=== PATIENT | male | born 1985 | race Caucasian/White ===

== ENCOUNTER 2016-12-06 16:44 | Inpatient (IN) | payer MEDICAID, OTHER ==
--- NOTE | 2016-12-06 17:03 | ED ---
General Adult HPI - General Source: patient, EMS, RN notes reviewed Mode of arrival: EMS Limitations: no limitations <Sam Salas - Last Filed: 12/06/16 18:06> <Nathen Lopez - Last Filed: 12/06/16 20:13> - General Chief complaint: Overdose Stated complaint: mental health Time Seen by Provider: 12/06/16 16:50 - History of Present Illness Initial comments: Patient is a pleasant 31-year-old male presenting to the emergency Department with depression and attempted overdose. Patient took 5 or 6 Xanax of unknown dose. Patient does have a history of suicide attempt in the past. Patient is depressed regarding the fact that he will be homeless and a couple of weeks. Patient has a history of heroin use however has been cleaning the last year and a half. No alcohol use. No hallucinations. No homicidal thoughts. No physical complaints. (Sam Salas) - Related Data Home Medications Medication Instructions Recorded Confirmed No Known Home Medications [No 12/06/16 12/06/16 Known Home Medications] Allergies Allergy/AdvReac Type Severity Reaction Status Date / Time No Known Allergies Allergy Verified 12/06/16 17:18 Review of Systems ROS Other: All systems not noted in ROS Statement are negative. Constitutional: Denies: fever Eyes: Denies: eye pain ENT: Denies: ear pain Respiratory: Denies: cough Cardiovascular: Denies: chest pain Endocrine: Denies: fatigue Gastrointestinal: Denies: abdominal pain Genitourinary: Denies: dysuria Musculoskeletal: Denies: back pain Skin: Denies: rash Neurological: Denies: headache Psychiatric: Reports: depression, suicidal thoughts <Sam Salas - Last Filed: 12/06/16 18:06> ROS Other: All systems not noted in ROS Statement are negative. <Nathen Lopez - Last Filed: 12/06/16 20:13> ROS Statement: Those systems with pertinent positive or pertinent negative responses have been documented in the HPI. Past Medical History Additional Past Medical History / Comment(s): recovering heroin addict History of Any Multi-Drug Resistant Organisms: None Reported Past Surgical History: Tonsillectomy Past Psychological History: Anxiety, Depression Smoking Status: Current every day smoker Past Alcohol Use History: Rare Past Drug Use History: Heroin, Marijuana <Sam Salas - Last Filed: 12/06/16 18:06> General Exam Limitations: no limitations General appearance: other (Slightly drowsy) Head exam: Present: atraumatic Eye exam: Present: normal appearance, EOMI, nystagmus ENT exam: Present: normal oropharynx Neck exam: Present: normal inspection Respiratory exam: Present: normal lung sounds bilaterally Cardiovascular Exam: Present: regular rate, normal rhythm GI/Abdominal exam: Present: soft. Absent: tenderness Extremities exam: Present: normal inspection Neurological exam: Present: alert, CN II-XII intact. Absent: motor sensory deficit Psychiatric exam: Present: flat affect Skin exam: Present: normal color <Sam Salas - Last Filed: 12/06/16 18:06> Course <Sam Salas - Last Filed: 12/06/16 18:06> <Nathen Lopez - Last Filed: 12/06/16 20:13> Vital Signs 12/06/16 12/06/16 12/06/16 16:52 16:57 19:00 Temperature 98.3 F Pulse Rate 108 H 76 Respiratory 18 18 Rate Blood Pressure 142/86 137/70 O2 Sat by Pulse 98 96 97 Oximetry 12/06/16 20:08 Temperature 98.0 F Pulse Rate 72 Respiratory 18 Rate Blood Pressure 105/60 O2 Sat by Pulse 99 Oximetry - Reevaluation(s) Reevaluation #1: 12/06/16 18:06 Patient reevaluated and improved. Patient more alert. No nystagmus. Patient is medically stable for psychiatric evaluation. (Sam Salas) Medical Decision Making - Lab Data Result diagrams: 12/06/16 17:16 12/06/16 17:16 <Sam Salas - Last Filed: 12/06/16 18:06> - Lab Data Result diagrams: 12/06/16 17:16 12/06/16 17:16 <Nathen Lopez - Last Filed: 12/06/16 20:13> - Lab Data Lab Results 12/06/16 12/06/16 Range/Units 17:16 17:16 WBC 13.8 H (3.8-10.6) k/uL RBC 5.58 (4.30-5.90) m/uL Hgb 16.8 (13.0-17.5) gm/dL Hct 46.7 (39.0-53.0) % MCV 83.7 (80.0-100.0) fL MCH 30.1 (25.0-35.0) pg MCHC 36.0 (31.0-37.0) g/dL RDW 12.7 (11.5-15.5) % Plt Count 209 (150-450) k/uL Neutrophils % 78 % Lymphocytes % 14 % Monocytes % 5 % Eosinophils % 1 % Basophils % 0 % Neutrophils # 10.8 H (1.3-7.7) k/uL Lymphocytes # 1.9 (1.0-4.8) k/uL Monocytes # 0.7 (0-1.0) k/uL Eosinophils # 0.1 (0-0.7) k/uL Basophils # 0.0 (0-0.2) k/uL Sodium 143 (137-145) mmol/L Potassium 3.8 (3.5-5.1) mmol/L Chloride 109 H (98-107) mmol/L Carbon Dioxide 22 (22-30) mmol/L Anion Gap 12 mmol/L BUN 10 (9-20) mg/dL Creatinine 0.90 (0.66-1.25) mg/dL Est GFR (MDRD) Af Amer >60 (>60 ml/min/1.73 sqM) Est GFR (MDRD) Non-Af >60 (>60 ml/min/1.73 sqM) Glucose 105 H (74-99) mg/dL Calcium 9.2 (8.4-10.2) mg/dL Total Bilirubin 1.1 (0.2-1.3) mg/dL AST 21 (17-59) U/L ALT 34 (21-72) U/L Alkaline Phosphatase 46 (38-126) U/L Total Protein 7.0 (6.3-8.2) g/dL Albumin 4.0 (3.5-5.0) g/dL Salicylates <1.0 mg/dL Acetaminophen <10.0 ug/mL Serum Alcohol <10 mg/dL Disposition <Sam Salas - Last Filed: 12/06/16 18:06> Time of Disposition: 20:13 <Nathen Lopez - Last Filed: 12/06/16 20:13> Clinical Impression: Drug overdose, Suicide attempt Disposition: ADMITTED IP TO THIS HOSP
[2016-12-06 17:30] LABS: Basophils % (A) 0 %; CH 31.1; CHCM 37.3; Eosinophils # (A) 0.1 k/uL (0-0.7); Eosinophils % (A) 1 %; HCT 46.7 % (39.0-53.0); HDW 2.78; HGB 16.8 gm/dL (13.0-17.5); Luc # (Auto) 0.28; Luc % (Auto) 2; Lymphocytes # (A) 1.9 k/uL (1.0-4.8); Lymphocytes % (A) 14 %; MCH 30.1 pg (25.0-35.0); MCV 83.7 fL (80.0-100.0); Mean Platelet Volume 7.8; Monocytes # (A) 0.7 k/uL (0-1.0); Monocytes % (A) 5 %; Neutrophils # (A) 10.8 k/uL (1.3-7.7); Neutrophils % (A) 78 %; RBC 5.58 m/uL (4.30-5.90); RDW 12.7 % (11.5-15.5); WBC 13.8 k/uL (3.8-10.6); WBC (Perox) 13.54
[2016-12-06 17:49] LABS: ALT 34 U/L (21-72); AST 21 U/L (17-59); Acetaminophen <10.0 ug/mL; Alcohol <10 mg/dL; Alkaline Phosphatase 46 U/L (38-126); Anion Gap 12 mmol/L; Blood Urea Nitrogen 10 mg/dL (9-20); Calcium 9.2 mg/dL (8.4-10.2); Carbon Dioxide 22 mmol/L (22-30); Chloride 109 mmol/L (98-107); Glucose 105 mg/dL (74-99); Non-African American GFR(MDRD) >60 (>60 ml/min/1.73 sqM); Potassium 3.8 mmol/L (3.5-5.1); Salicylate <1.0 mg/dL; Sodium 143 mmol/L (137-145); Total Bilirubin 1.1 mg/dL (0.2-1.3)
[2016-12-06] MEDS ORDERED: NICOTINE 21MG/24HR PATCH TRANSDERM STA (20:08)
[2016-12-06] MEDS ORDERED: MAG HYDROX/AL HYDROX/SIMETH 30 ML CUP PO PRN (22:03)
[2016-12-06] MEDS ORDERED: MAGNESIUM HYDROXIDE 2,400 MG/10 ML CUP PO PRN (22:03)
[2016-12-06] MEDS ORDERED: OLANZapine 10 MG TAB PO STA (22:12)
[2016-12-06 22:47] VITALS: BMI 31.1
[2016-12-07 06:39] VITALS: RESP 16
[2016-12-07] MEDS: NICOTINE 21MG/24HR PATCH TRANSDERM SCH (08:33)
--- NOTE | 2016-12-07 13:26 | P.HPMEDMHU ---
History of Present Illness H&P Date: 12/07/16 Chief Complaint: Depression. This is a 31-year-old male with no prior medical history who was brought into the emergency department at [facility] yesterday because of the depression and suicidal ideation is matter fact patient overdosed on 5-6 Xanax pills, patient stated that he had lost his job on Friday and ever since he felt suicidal and he came to the ER for evaluation and treatment he ended up getting admitted to the mental health unit, the patient was seen by hours service for medical clearance. Review of Systems Constitutional: Denies anorexia, Denies chronic headaches, Denies malaise, Denies weakness, Denies weight gain Eyes: denies blurred vision, denies bulging eye, denies decreased vision Ears, nose, mouth and throat: Denies dysphagia, Denies neck lump, Denies swelling in throat, Denies sore throat, Denies vertigo Cardiovascular: Denies chest pain, Denies dyspnea on exertion, Denies high blood pressure, Denies phlebitis Respiratory: Denies congestion, Denies cough, Denies cough with sputum, Denies home oxygen, Denies sleep apnea, Denies snoring, Denies wheezing Gastrointestinal: Denies abdominal pain, Denies bloating, Denies BRBPR, Denies change in bowel habits, Denies coffee ground emesis, Denies heartburn, Denies melena, Denies nausea, Denies vomiting Genitourinary: Denies dysuria, Denies nocturia, Denies polyuria Musculoskeletal: Denies myalgias Musculoskeletal: absent: ankle pain, ankle stiffness, ankle swelling, elbow pain , elbow stiffness, elbow swelling, foot pain, foot stiffness, foot swelling, hand pain, hand stiffness, hand swelling, hip pain, hip stiffness, hip swelling , knee pain, knee stiffness, knee swelling, shoulder pain, shoulder stiffness, shoulder swelling, wrist pain, wrist stiffness, wrist swelling Integumentary: Denies pruritus, Denies rash Neurological: Denies numbness, Denies weakness Psychiatric: Reports anxiety, Reports depression, Reports suicidal ideation Endocrine: Denies fatigue, Denies weight change Past Medical History Past Medical History: No Reported History Additional Past Medical History / Comment(s): recovering heroin addict History of Any Multi-Drug Resistant Organisms: None Reported Past Surgical History: Tonsillectomy Past Anesthesia/Blood Transfusion Reactions: No Reported Reaction Past Psychological History: Anxiety, Depression Smoking Status: Current every day smoker (Patient smokes about a pack every day since the age of 18) Past Alcohol Use History: Rare Past Drug Use History: Heroin (Patient was clean for about a month and he relapsed again about 2 days ago when he snorted heroine), Marijuana - Past Family History Mother Family Medical History: Diabetes Mellitus (Mother is 54-year-old has history of diabetes.) Father Family Medical History: Coronary Artery Disease (CAD) (Father 6-year-old has history of CAD, alcoholic cirrhosis) Medications and Allergies Home Medications Medication Instructions Recorded Confirmed Type No Known Home Medications [No 12/06/16 12/06/16 History Known Home Medications] Allergies Allergy/AdvReac Type Severity Reaction Status Date / Time No Known Allergies Allergy Verified 12/06/16 22:25 Physical Exam Vitals: Vital Signs Temp Pulse Resp BP 12/07/16 06:38 98.1 F 64 16 105/58 12/06/16 22:31 98.3 F 77 20 118/73 Intake and Output 12/06/16 12/07/16 12/07/16 22:59 06:59 14:59 Other: Weight 98.3 kg - Constitutional General appearance: average body habitus, no acute distress - EENT Eyes: EOMI, PERRLA, no ptosis, no scleral icterus, normal appearance ENT: hearing grossly normal, normal oropharynx, no thrush Ears: bilateral: normal - Neck Neck: no lymphadenopathy, normal ROM, no rigidity, no stridor, no thyromegaly Carotids: bilateral: upstroke normal Thyroid: bilateral: normal size - Respiratory Respiratory: bilateral: diminished, negative: dullness, rales, rhonchi, wheezing , prolonged expiration, prolonged inspiration - Cardiovascular Rhythm: regular Heart sounds: normal: S1, S2 Abnormal Heart Sounds: no systolic murmur, no S3 Gallop, no S4 Gallop, no click - Gastrointestinal General gastrointestinal: normal bowel sounds, soft, no splenomegaly, no tenderness, no umbilical hernia - Integumentary Integumentary: normal, normal turgor - Neurologic Neurologic: CNII-XII intact - Musculoskeletal Musculoskeletal: strength equal bilaterally - Psychiatric Psychiatric: A&O x's 3, no appropriate affect, intact judgment & insight Cranial Nerve Examination - Cranial Nerves Cranial Nerve I- Olfactory: Intact Cranial Nerve II- Optic: Intact Cranial Nerve III- Oculomotor: Intact Cranial Nerve IV- Trochlear: Intact Cranial Nerve V- Trigeminal: Intact Cranial Nerve - Abducens: Intact Cranial Nerve VII- Facial: Intact Cranial Nerve VIII- Auditory: Intact Cranial Nerve IX- Glossopharyngeal: Intact Cranial Nerve X- Vagus: Intact Cranial Nerve XI- Accessory: Intact Cranial Nerve XII- Hypoglossal: Intact Results CBC & Chem 7: 12/06/16 17:16 12/06/16 17:16 Assessment and Plan Plan: Assessment and plan: 1. Depression. Admit the patient to the mental health unit, group therapy, suicidal precaution, patient will be seen by the mental health unit team. 2. Chronic tobacco use and dependence. The patient was placed on nicotine patch, smoking cessation and counseling an increased risk of CAD, CVA, and malignancy. 3. Marijuana as well as heroine abuse. Patient was counseled about abstinence 4. Thank you for the consult. We will follow with you.
[2016-12-07] MEDS: FLUoxetine HCL 20 MG CAP PO SCH (15:09)
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
[2016-12-07] MEDS: ACETAMINOPHEN TAB 325 MG TAB PO PRN (21:29)
[2016-12-07] MEDS: traZODone HCL 100 MG TAB PO PRN (21:29)
[2016-12-08 06:22] VITALS: TEMP 98.5
[2016-12-08] MEDS: FLUoxetine HCL 20 MG CAP PO SCH (08:09)
[2016-12-08] MEDS: NICOTINE 21MG/24HR PATCH TRANSDERM SCH (08:09)
[2016-12-08] MEDS ORDERED: OLANZapine 5 MG TAB PO ONE (09:06)
[2016-12-08] MEDS: ACETAMINOPHEN TAB 325 MG TAB PO PRN ×2 (11:00→20:41)
[2016-12-08] MEDS: OLANZapine 5 MG TAB PO SCH ×3 (14:55→20:39)
[2016-12-08 17:33] LABS: Appearance,Urine Clear (Clear); Bilirubin,Urine Negative (Negative); Glucose,Urine (UA) Negative (Negative); Ketones,Urine Negative (Negative); Leukocyte Esterase,Urine Negative (Negative); Nitrite,Urine Negative (Negative); PH, Urine 6.5 (5.0-8.0); Protein,Urine Negative (Negative); Specific Gravity,Urine 1.011 (1.001-1.035); UA Billing (MACRO vs. MICRO) CHEM; Urobilinogen,Urine <2.0 mg/dL (<2.0)
--- NOTE | 2016-12-08 17:42 | PN ---
DATE OF SERVICE: 12/08/2016 CHIEF COMPLAINT: The patient reported that he has had long-term problems with depression. He presented the story to the emergency room that he had overdosed on 5 to 6 tablets of Xanax. He had significant stress issues with having relapsed to heroin use after 1-1/2 years of abstinence. He had additional stress of losing a job which is his only means of income. INTERVAL HISTORY: Patient has been doing fair. He had a quiet evening last night. He attended group last evening and again today. He does not actively participate and seems a little withdrawn in groups. He received Desyrel last evening and slept fair last night. He does report some irritability and GI complaints relating to heroin withdrawal. He says he doubts that he will have significant problems with that, as he only used for about 1 week, though he is noting some issues. He talked to his mother and was able to set up a plan to be able to live with her. He recognizes that there is stress in that situation, given that she continues to drink. He was worried about his car, though that has been taking care of. He does have to deal with Medicaid issues. He has a fair outlook in regards to addressing some of his immediate issues to get his life back on track. He has not had change in his general health. He tolerates his psychotropic medications. MENTAL STATUS: Patient gave good eye contact. Psychomotor activity was a little restless. Speech was clear. He answered questions with direct responses. He has calm manner. His affect was a little constricted, his mood quiet. He did not appear to be distressed. ASSESSMENT: I will continue the current diagnosis and treatment plan. I will continue psychotropic medications the same. He is tolerating the start up of Prozac. I will add Zyprexa 5 mg 3 times a day for management of early withdrawal issues relating to heroin use. I would look to keep that limited and potentially wean him away from that over the next few weeks, presumably once he is discharged. We will continue to focus on stabilization and discharge planning. We will provide support in helping him address Medicaid issues as well as outpatient referral.
[2016-12-08] MEDS: traZODone HCL 100 MG TAB PO PRN (20:42)
[2016-12-09 06:07] VITALS: BP 141/86; PULSE 112
[2016-12-09] MEDS: OLANZapine 5 MG TAB PO SCH (08:39)
[2016-12-09] MEDS: FLUoxetine HCL 20 MG CAP PO SCH (08:39)
[2016-12-09] MEDS: NICOTINE 21MG/24HR PATCH TRANSDERM SCH (08:39)
--- NOTE | 2016-12-09 09:11 | P.PN ---
Progress Note - Text SUBJECTIVE: I reviewed the medical record, interviewed Ty and discussed his treatment and treatment plan during team meeting. He is a 31-year-old male who has history of an opiate use disorder. He presented to unit with complaints of suicidal ideation, increasing depression and relapse to heroin. He denied feeling depressed or having thoughts of or suicide. He talked about the recent relapse to heroin and assured me that he will be able to control his heroin use without involvement in a recovery program. He attributed his heroin use to a job loss, financial problems and loss of housing. He plans to return to his mother's house after discharge and once he finds another job to move to his home apartment. He denied opiate withdrawal symptoms. OBJECTIVE: He presented as a casually groomed 31-year-old male who is moderately obese. He made eye contact and attended the interview. He had no distinguishing features or prominent physical abnormalities. He had occasional sniffling. He had a bright facial expression. He was alert and oriented to person, place and time. He showed no abnormality of psychomotor activity. He had a normal gait. His speech was spontaneous with normal rate, rhythm and volume. His affect was blunted but stable and appropriate. He denied suicidal ideation or wishes. He denied homicidal ideation. He denied feelings of hopelessness, helplessness or worthlessness. He did not express obsessions, phobias, ideas reference or paranoid ideation. His thinking was abstract and associations were coherent and logical. He denied hallucinations and did not appear to be responding to internal stimuli. ASSESSMENT: He is not depressed and denies suicidal thoughts, ideation or intent. He has minimal symptoms of opiate withdrawal. His presentation is related to relapse to heroin his contacts of several social issues including job loss and financial problems. PLAN: Discharged home with follow-up through [facility]. Continue Prozac 20 mg per day and trazodone 100 mg at bedtime for sleep.
--- NOTE | 2016-12-09 09:33 | P.DS ---
Providers Date of admission: 12/06/16 20:41 Attending physician: Toy Alberto MD Consults: 12/06/16 22:06 Consult Physician Routine Consulting Provider: Tutu Oliva Consult Reason/Comments: H & P and medical follow up Do you want consulting provider notified?: Yes, Notify in am Primary care physician: Stated None - Discharge Diagnosis(es) (1) Opioid use disorder, severe, dependence Current Visit: Yes Status: Chronic Priority: Medium (2) Depressive disorder Current Visit: Yes Status: Acute Priority: Low (3) Drug overdose Current Visit: Yes Status: Acute Priority: Medium Hospital Course: He is a 31-year-old male with history help use disorder. He presented to emergency room with complaints of depression and alleged overdose with "5 or 6 tablets of Xanax". He relapsed to heroin after he reported 8 months abstinence as a result of several stressors including loss of job, unemployment and loss of housing. Please see history and physical dated 2016. We admitted him to the psychiatric unit under the care of this inspector automatic typewriter. We provided a biopsychosocial assessment. The business system consultant intensive care anaesthetist completed the initial physical exam and medical history and diagnosed depression, tobacco use disorder, marijuana and heroin use disorder. The admitting psychiatrist prescribed Prozac 20 mg daily for treatment of depression and trazodone 100 mg at bedtime for insomnia. Mr. Henderson complained of mild to moderate opiate withdrawal symptoms for which the covering psychiatrist prescribed Zyprexa 5 mg 3 times a day. On the day of discharge she denied opiate withdrawal symptoms. He denied feeling depressed or having thoughts of or suicide. He plans to live with his mother until he is able to find employment and obtain his own apartment. He is not interested in residential rehabilitation but agreed to a referral to [facility] for aftercare services. Patient Condition at Discharge: Stable Plan - Discharge Summary New Discharge Prescriptions: FLUoxetine HCL [PROzac] 20 mg PO DAILY 30 Days Nicotine 21Mg/24Hr Patch [Habitrol] 1 patch TRANSDERM DAILY 14 Days traZODone HCL [Desyrel] 100 mg PO HS PRN 30 Days PRN Reason: Insomnia Discharge Medication List FLUoxetine HCL [PROzac] 20 mg PO DAILY 30 Days 12/09/16 [Rx] Nicotine 21Mg/24Hr Patch [Habitrol] 1 patch TRANSDERM DAILY 14 Days 12/09/16 [Rx ] traZODone HCL [Desyrel] 100 mg PO HS PRN 30 Days 12/09/16 [Rx] Follow up Appointment(s)/Referral(s): None,Stated [Primary Care Provider] - 1-2 days Patient Instructions/Handouts: How to Stop Smoking (DC), Depression (DC), Suicide Prevention for Adults (DC) Activity/Diet/Wound Care/Special Instructions: Activity and diet as tolerated. Avoid the use of street drugs and alcohol. Take medications as prescribed. When you are in need of refills on your medication please contact your medical provider and/or outpatient psychiatrist to have this done. Please go to scheduled outpatient appointment for aftercare. If symptoms return or become worse call the crisis line at and/or go to the nearest emergency room for an evaluation. Discharge Disposition: HOME SELF-CARE
== END 2016-12-09 15:13 | disposition home or self-care (01) | DRG 885 ==
LOC: EC 16:44 → 3MHU 20:41
PROVIDERS: ADMIT Psychiatry & Neurology Psychiatry; ATTEND Psychiatry & Neurology Psychiatry
DX: F32.4 Major depressive disorder, single episode, in partial remission (principal); R45.851 Suicidal ideations; F11.23 Opioid dependence with withdrawal; F12.90 Cannabis use, unspecified, uncomplicated; G47.00 Insomnia, unspecified; F43.10 Post-traumatic stress disorder, unspecified; F41.0 Panic disorder [episodic paroxysmal anxiety]; F17.200 Nicotine dependence, unspecified, uncomplicated; T42.4X2A Poisoning by benzodiazepines, intentional self-harm, initial encounter; Z59.9 Problem related to housing and economic circumstances, unspecified; Z62.810 Personal history of physical and sexual abuse in childhood; Z91.5 Personal history of self-harm
CPT/HCPCS: 36415; 80053; 80306; 80320; 81003; 82075; 83520; 84443; 85025

== ENCOUNTER 2019-02-28 14:44 | Inpatient (IN) | payer MEDICAID, OTHER ==
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
[2019-02-28 15:47] LABS: Amphetamine Screen,Urine Not Detected (NotDetected); Barbiturate Screen,Urine Not Detected (NotDetected); Benzodiazepines Screen,Urine Not Detected (NotDetected); Cocaine Screen,Urine Not Detected (NotDetected); Methadone Screen, Urine Not Detected (NotDetected); Opiate Screen,Urine Not Detected (NotDetected); Oxycodone Screen, Urine Not Detected (NotDetected); Phencyclidine Screen,Urine Not Detected (NotDetected); Tricyclic Antidepressant,Urine Not Detected (NotDetected); Urn Cannabinoid Scrn Not Detected (NotDetected)
[2019-02-28] MEDS ORDERED: NICOTINE 21MG/24HR PATCH TRANSDERM STA (17:45)
[2019-02-28] MEDS ORDERED: THIAMINE 100 MG/ML 2 ML VIAL IM STA (20:20)
[2019-02-28] MEDS ORDERED: LORazepam 2 MG/ML INJ IV PRN ×3 (20:20)
[2019-02-28] MEDS ORDERED: HYDROcodone/APAP 5-325MG 1 EACH TAB PO STA (20:23)
[2019-02-28] MEDS: THIAMINE 100 MG TAB PO SCH ×2 (20:23→20:24)
[2019-02-28 21:30] LABS: Basophils # (A) 0.1 k/uL (0-0.2); Basophils % (A) 1 %; Eosinophils # (A) 0.2 k/uL (0-0.7); Eosinophils % (A) 2 %; HCT 49.3 % (39.0-53.0); HGB 16.7 gm/dL (13.0-17.5); Lymphocytes # (A) 2.4 k/uL (1.0-4.8); Lymphocytes % (A) 22 %; MCH 31.1 pg (25.0-35.0); MCHC 33.8 g/dL (31.0-37.0); Mean Platelet Volume 7.6; Monocytes # (A) 0.5 k/uL (0-1.0); Monocytes % (A) 4 %; Neutrophils # (A) 7.6 k/uL (1.3-7.7); Neutrophils % (A) 69 %; Platelet Count 239 k/uL (150-450); RBC 5.36 m/uL (4.30-5.90); RDW 14.6 % (11.5-15.5); WBC 10.9 k/uL (3.8-10.6)
[2019-02-28 21:35] LABS: Appearance,Urine Clear (Clear); Bilirubin,Urine Negative (Negative); Blood,Urine Negative (Negative); Color,Urine Light Yellow; Glucose,Urine (UA) Negative (Negative); Ketones,Urine Negative (Negative); Leukocyte Esterase,Urine Negative (Negative); Nitrite,Urine Negative (Negative); Protein,Urine Trace (Negative); Specific Gravity,Urine 1.009 (1.001-1.035); Urobilinogen,Urine <2.0 mg/dL (<2.0)
[2019-02-28 21:47] LABS: ALT 46 U/L (21-72); AST 47 U/L (17-59); African American GFR (CKD) >90 (>60 ml/min/1.73 sqM); Albumin 4.6 g/dL (3.5-5.0); Alkaline Phosphatase 70 U/L (38-126); Anion Gap 13 mmol/L; Blood Urea Nitrogen 9 mg/dL (9-20); Calcium 9.5 mg/dL (8.4-10.2); Carbon Dioxide 23 mmol/L (22-30); Chloride 104 mmol/L (98-107); Glucose 114 mg/dL (74-99); Magnesium 1.7 mg/dL (1.6-2.3); Potassium 4.1 mmol/L (3.5-5.1); Sodium 140 mmol/L (137-145); Total Bilirubin 0.5 mg/dL (0.2-1.3); Total Protein 7.5 g/dL (6.3-8.2)
[2019-03-01] MEDS ORDERED: ACETAMINOPHEN TAB 325 MG TAB PO STA ×2 (02:03→13:39)
[2019-03-01] MEDS ORDERED: NICOTINE 21MG/24HR PATCH TRANSDERM STA (08:26)
[2019-03-01] MEDS ORDERED: MAG HYDROX/AL HYDROX/SIMETH 30 ML CUP PO PRN (14:32)
[2019-03-01] MEDS ORDERED: ZIPRASIDONE 20 MG VIAL IM PRN (14:32)
[2019-03-01] MEDS ORDERED: LORazepam 2 MG/ML INJ IM PRN (14:35)
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
[2019-03-01] MEDS: FOLIC ACID 1 MG TAB PO SCH (21:16)
[2019-03-01] MEDS: LORazepam 1 MG TAB PO PRN (21:16)
[2019-03-01] MEDS: MELATONIN 5 MG TABLET PO PRN (21:17)
[2019-03-01] MEDS ORDERED: NICOTINE POLACRILEX 2 MG GUM BUCCAL STA (21:38)
[2019-03-02] MEDS: NICOTINE 21MG/24HR PATCH TRANSDERM SCH (08:21)
[2019-03-02] MEDS: ACETAMINOPHEN TAB 325 MG TAB PO PRN ×2 (08:22→21:45)
[2019-03-02] MEDS: LORazepam 1 MG TAB PO PRN ×3 (08:22→21:44)
[2019-03-02] MEDS: MULTIVITAMINS, THERA 1 EACH TAB PO SCH (08:22)
[2019-03-02] MEDS: FOLIC ACID 1 MG TAB PO SCH (08:22)
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
[2019-03-02] MEDS: VORTIOXETINE HYDROBROMIDE 10 MG TABLET PO SCH (11:54)
[2019-03-02] MEDS: MELATONIN 5 MG TABLET PO PRN (21:44)
[2019-03-03] MEDS: MULTIVITAMINS, THERA 1 EACH TAB PO SCH (08:05)
[2019-03-03] MEDS: FOLIC ACID 1 MG TAB PO SCH (08:05)
[2019-03-03] MEDS: VORTIOXETINE HYDROBROMIDE 10 MG TABLET PO SCH (08:05)
[2019-03-03] MEDS: NICOTINE 21MG/24HR PATCH TRANSDERM SCH (08:05)
[2019-03-03] MEDS: LORazepam 1 MG TAB PO PRN ×3 (08:07→22:17)
[2019-03-03] MEDS: ACETAMINOPHEN TAB 325 MG TAB PO PRN ×3 (08:07→21:02)
--- NOTE | 2019-03-03 11:38 | P.PN ---
Progress Note - Text Interval history: The patient is found in the hallway he follows me to an interview room. He reports his mood is about the same he feels depressed. He feels safe here in the hospital. He has decided that he will attend inpatient chemical dependency treatment. He is encouraged to call today and he is agreeable. We reviewed his psychotropic medication. He indicates that he is having trouble sleeping although staff report he slept 7 hours. He states he is having increased anxiety when he attempts to go to sleep. We discussed di eddy the melatonin in trying Vistaril. Mental status exam: The patient is an overweight male appearing his stated age. He is dressed in his own clothing he has a disheveled appearance. Hygiene is adequate. Speech is fluent spontaneous nonpressured. He does appear distractible at times. He endorses a depressed mood with anxiety. He continues to have some hopelessness thinking. In terms of suicidal thoughts he feels safe in the hospital. He reports no homicidal ideation intent or plan. He is reporting no auditory or visual hallucinations or any specific delusions. There is no observed evidence of psychosis. He does not appear hypomanic or manic currently. He is oriented to person place and date. He demonstrates no verbal or physical aggressiveness he demonstrates no involuntary repetitive movements. Insight and judgment limited at this time. Plan: Continued symptoms of depression. We will continue his current medications. We will add Vistaril 25 mg at bedtime. He is instructed to call the access number today to begin arranging inpatient chemical dependency treatment. Vital signs reviewed they are within normal limits. We discussed that we would be tapering off of the Ativan during the hospitalization. He is encouraged to continue participating in the milieu. We will continue monitoring him for safety.
[2019-03-03] MEDS: hydrOXYzine PAMOATE 25 MG CAP PO SCH (22:14)
[2019-03-04] MEDS: VORTIOXETINE HYDROBROMIDE 10 MG TABLET PO SCH (08:31)
[2019-03-04] MEDS: MULTIVITAMINS, THERA 1 EACH TAB PO SCH (08:31)
[2019-03-04] MEDS: NICOTINE 21MG/24HR PATCH TRANSDERM SCH (08:31)
[2019-03-04] MEDS: FOLIC ACID 1 MG TAB PO SCH (08:31)
[2019-03-04] MEDS: LORazepam 1 MG TAB PO PRN ×2 (08:33→19:15)
--- NOTE | 2019-03-04 10:08 | P.PN ---
Progress Note - Text Progress Note Date: 03/04/19 Interval History: Patient is a 34-year-old male who was seen today in coverage for Dr. Peoples. Patient reports that he did contact the body worker for substance abuse rehab program. Patient states that he slept on and off last night and is eating fairly well. He reports continuing to feel depressed, tired and was crying this morning about the fact that his family hasn't contacted him and he still pretty hopeless. Patient states that he's continuing to have suicidal thoughts but has no plan or intent to act while on the inpatient unit. Patient states that he was attending groups yesterday but this morning is feeling tired and so was in his room when he was approached for the interview. Mental Status:Appearance/Attitude: Patient is neatly dressed, makes intermittent eye contact and is cooperative Behavior: Patient does not exhibit any psychomotor agitation, some evidence of some psychomotor slowing. Speech/Language: Patient responds to questions with some elaboration, speaks in a soft voice normal rhythm and is coherent Thought Process: Patient is goal-directed and needs encouragement to elaborate on his responses no evidence of flight of ideas or loose associations Thought Content: Patient states that he is not hearing voices or seeing things, no paranoid or delusional ideation is elicited. Patient reports continuing to feel hopeless because he is had no contact with his family, he states he's feeling tired and was crying this morning. Patient states that he slept on and off last night and continues to feel depressed. He reports he is eating well. Suicidal/Homicidal Ideation: Patient reports continued suicidal thoughts with no plan or intent to act and no current homicidal ideation Sensorium/Cognition: Patient is alert and oriented to person, place and time and his recent and remote memory are grossly intact Mood/Affect: Patient's mood remains depressed and his affect is blunted Insight/Judgment: Patient's insight and judgment are fair Assessment: Patient states that he contacted the intake for rehab, states that he is continuing to feel depressed, hopeless and continues to have suicidal thoughts with no plan or intent to act. Patient reports no side effects from gaining trintellix and states that he is eating well and slept on and off last night. He reports feeling tired and tearful this morning and states he has no contact with his family which he states are all substance users. Plan: Patient will continue on his current medications, patient continues to require hospitalization to further stabilize his mood. Patient has contacted intake for substance use rehab.
[2019-03-04] MEDS: ACETAMINOPHEN TAB 325 MG TAB PO PRN (14:48)
[2019-03-04] MEDS ORDERED: WATER FOR INJECTION, STERILE 10 ML IV ONE (19:02)
[2019-03-04] MEDS: hydrOXYzine PAMOATE 25 MG CAP PO SCH (21:49)
[2019-03-05] MEDS: VORTIOXETINE HYDROBROMIDE 10 MG TABLET PO SCH (08:27)
[2019-03-05] MEDS: MULTIVITAMINS, THERA 1 EACH TAB PO SCH (08:27)
[2019-03-05] MEDS: FOLIC ACID 1 MG TAB PO SCH (08:27)
[2019-03-05] MEDS: LORazepam 1 MG TAB PO PRN ×3 (08:27→22:08)
[2019-03-05] MEDS: NICOTINE 21MG/24HR PATCH TRANSDERM SCH (08:27)
--- NOTE | 2019-03-05 10:16 | P.PN ---
Progress Note - Text Interval history: The patient is found the front clerk he follows me to an interview room. He states he continues to struggle with symptoms of depression. He reports that suicidal thoughts continue to occupy his mind. He states he tries to be more optimistic but thoughts of past traumas will recur. He states he continues to be tearful on a regular basis. He has very limited support. He continues to vacillate between going to [facility] and returning to the group home if he is eligible. He states that if he goes to [facility] this will delay him getting a job. We reviewed his psychotropic medications. He had no questions or concerns regarding those. Mental status exam: The patient is an overweight male appearing his stated age. Eye contact is appropriate speech is fluent and spontaneous slow at times. He reports sad mood with hopelessness thoughts he demonstrates a congruent affect. He reports continued suicidal ideation frequently. He reports no homicidal ideation intent or plan. He reports no auditory or visual hallucinations or any specific delusions. He demonstrates no tangential thinking loose associations or flight of ideas. He demonstrates no verbal or physical aggressiveness. Insight and judgment limited. He remains oriented to person place and date. Plan: Continued symptoms of depression, continue medication as written. He is encouraged to fully participate in the milieu. We will monitor him for safety. Vital signs reviewed. He is encouraged to consider inpatient chemical dependency treatment. He requires continued psychiatric hospitalization due to acute safety risk.
[2019-03-05] MEDS: hydrOXYzine PAMOATE 25 MG CAP PO SCH (21:09)
[2019-03-05] MEDS: ACETAMINOPHEN TAB 325 MG TAB PO PRN (22:08)
[2019-03-06] MEDS: VORTIOXETINE HYDROBROMIDE 10 MG TABLET PO SCH (07:57)
[2019-03-06] MEDS: FOLIC ACID 1 MG TAB PO SCH (07:57)
[2019-03-06] MEDS: NICOTINE 21MG/24HR PATCH TRANSDERM SCH (07:57)
[2019-03-06] MEDS: MULTIVITAMINS, THERA 1 EACH TAB PO SCH (07:57)
[2019-03-06] MEDS: LORazepam 1 MG TAB PO PRN ×3 (07:58→22:58)
--- NOTE | 2019-03-06 15:47 | P.PN ---
Progress Note - Text Progress Note Date: 03/06/19 Interval history: Patient is seen in cross coverage today. He reports he has had some feelings of his mood is feeling better but continues to be struggling with depression and also thoughts of suicide. He does talk about his plans to go to [place] after a treatment here. His drug of choice has been heroin but he was also using alcohol. He does describe a lot of negative thinking and has been doing a lot of introspection with negative thinking. Regarding medication side effects he has noticed with self stimulation some sexual side effects with the trintellix which is tolerable. Mental status exam: He is alert and cooperative with the interview. Speech is fluent, not rapid or pressured. His thought processes are organized. His mood is depressed. He admits to some ongoing thoughts of suicide but reports that he feels safe here on the unit. He has not verbalize any thoughts of harm to others. No evidence of psychosis or agitation. He also describes significant anxiety. Plan: Patient will be maintained on current psychotropic medication regimen. We'll continue to monitor for any medication side effects and monitor his ongoing response to treatment. continue to monitor regarding suicidal ideations. We'll continue to cover this patient through the weekend
[2019-03-06] MEDS: hydrOXYzine PAMOATE 25 MG CAP PO SCH (20:21)
[2019-03-06] MEDS: ACETAMINOPHEN TAB 325 MG TAB PO PRN (22:59)
[2019-03-07] MEDS: NICOTINE 21MG/24HR PATCH TRANSDERM SCH (09:15)
[2019-03-07] MEDS: VORTIOXETINE HYDROBROMIDE 10 MG TABLET PO SCH (09:15)
[2019-03-07] MEDS: MULTIVITAMINS, THERA 1 EACH TAB PO SCH (09:15)
[2019-03-07] MEDS: FOLIC ACID 1 MG TAB PO SCH (09:16)
[2019-03-07] MEDS: LORazepam 1 MG TAB PO PRN ×2 (09:17→17:20)
[2019-03-07 12:21] VITALS: BMI 41.9
--- NOTE | 2019-03-07 13:13 | P.PN ---
Progress Note - Text Progress Note Date: 03/07/19 Interval history: Patient seen in cross [facility] in today. He describes that he has been dealing with ongoing thoughts of harm to self. He does feel safe here on the unit. He states that his mood could be better. He does still plan on going to rehab after being discharged from the unit. He describes some ongoing anxiety. he makes reference to feeling as though he would need to act out in order to get medication but does not verbalize any plans to act out. He does state he's been taking some of the Ativan when necessary. He does describe lack of support system today. He discussed plans for looking at going to a three- quarter house upon discharge from rehab and we also discussed NA/AA. He also discussed issues of looking for a job. Mental status exam: He is alert and cooperative with the interview. His speech is fluent, not rapid or pressured. Thought processes are organized. His mood is depressed. He admits to some ongoing thoughts of harm to self but reports that he feels safer on the unit. He has not verbalize thoughts of harm to others. No evidence of psychosis or agitation. Plan: We'll maintain current psychotropic medication regimen. Continue to monitor regarding thoughts of suicide. Continue to monitor his ongoing response to treatment.
[2019-03-07] MEDS: ACETAMINOPHEN TAB 325 MG TAB PO PRN (18:28)
[2019-03-07] MEDS: hydrOXYzine PAMOATE 25 MG CAP PO SCH (21:03)
[2019-03-07] MEDS ORDERED: MELATONIN 1 MG TAB PO STA (21:53)
[2019-03-08] MEDS: NICOTINE 21MG/24HR PATCH TRANSDERM SCH (08:32)
[2019-03-08] MEDS: VORTIOXETINE HYDROBROMIDE 10 MG TABLET PO SCH (08:32)
[2019-03-08] MEDS: MULTIVITAMINS, THERA 1 EACH TAB PO SCH (08:32)
[2019-03-08] MEDS: FOLIC ACID 1 MG TAB PO SCH (08:32)
[2019-03-08] MEDS: LORazepam 1 MG TAB PO PRN ×2 (08:34→19:35)
--- NOTE | 2019-03-08 09:20 | P.PN ---
Progress Note - Text Interval history: The patient is found in the assistant front office manager he follows me to an interview room. He indicates his mood is still down. He states that he doesn't have much hope. He has decided to go to inpatient chemical dependency treatment as he needs three-quarter placement afterwards. We discussed what his plans will be after he gets out of rehab. We tried to review various job opportunities or activities that he might engage in that would be healthier. He had questions regarding his medication those were addressed. He has found the Vistaril ineffective so far although he has been sleeping throughout the night. We discussed titrating the Vistaril and making it more accessible. He describes waking up feeling bad because of depression and anxiety each morning and reexperiencing that same phenomenon around 4 PM. Mental status exam: The patient is an overweight male appearing his stated age. He presents with adequate hygiene and fair grooming. Eye contact is appropriate speech is fluent spontaneous nonpressured. He reports a depressed and anxious mood affect is constricted. Initially states that he stil l has some hopelessness thinking. He states he doesn't want to but doesn't want to feel like this anymore. No homicidal ideation intent or plan. He is reporting no auditory or visual hallucinations or any specific delusions. There is no observed evidence of psychosis. He does not appear hypomanic or manic. Insight and judgment limited. He remains oriented to person place and date. Plan: The patient will continue on the Trintellix. Vistaril be increased to 50 mg up to twice a day. He is encouraged to fully participate in the milieu. We will monitor him for safety. We will await his [facility] placement date. Vital signs reviewed.
[2019-03-08] MEDS: hydrOXYzine PAMOATE 25 MG CAP PO PRN ×2 (12:04→20:09)
[2019-03-08] MEDS: ACETAMINOPHEN TAB 325 MG TAB PO PRN (19:34)
[2019-03-09] MEDS: LORazepam 1 MG TAB PO PRN (02:45)
[2019-03-09 06:42] VITALS: BP 117/73; PULSE 79; RESP 18; TEMP 97.9
[2019-03-09] MEDS: NICOTINE 21MG/24HR PATCH TRANSDERM SCH (08:36)
[2019-03-09] MEDS: FOLIC ACID 1 MG TAB PO SCH (08:36)
[2019-03-09] MEDS: VORTIOXETINE HYDROBROMIDE 10 MG TABLET PO SCH (08:37)
[2019-03-09] MEDS: MULTIVITAMINS, THERA 1 EACH TAB PO SCH (08:37)
--- NOTE | 2019-03-09 08:57 | P.DS ---
Providers Date of admission: 03/01/19 14:13 Expected date of discharge: 03/09/19 Attending physician: Jimenez Peoples Consults: 03/01/19 14:32 Consult Physician Routine Consulting Provider: Quique Velasco Consult Reason/Comments: H&P and medical Do you want consulting provider notified?: Yes Primary care physician: Stated None - Discharge Diagnosis(es) (1) Major depressive disorder, recurrent severe without psychotic features Current Visit: Yes Status: Acute Priority: High (2) Alcohol use disorder Current Visit: Yes Status: Acute Priority: High (3) Opioid use disorder Current Visit: Yes Status: Acute Priority: High Hospital Course: Brief summary of admission note: This patient is a 34-year-old single male who was admitted to the mental health unit for suicidal ideation. The patient was considering suicide by drowning as he was seated by the [facility]. He reported having increasing symptoms of depression over the past several months. He reported feeling hopeless sleep and been impaired energy was low. He reported feelings of anhedonia. For full details please refer to my psychiatric evaluation dated 03/02/2019. Summary of hospital course: The patient was admitted to the mental health unit voluntarily. We reviewed his presenting symptoms and treatment options. We decided to initiate Trintellix is an antidepressant. We used Vistaril as needed for anxiety. He was seen by internal medicine for routine history and physical exam. Social work met with the patient to complete a psychosocial assessment and for discharge planning purposes. Initially he was uncertain but during the hospitalization he committed to attending inpatient chemical dependency treatment. Arrangements were made for him to start [facility] today. The patient has reported improvement of symptoms while here. He states that his suicidal ideation has resolved. He states he now feels some hope as he knows he can transition to a three-quarter house after he gets out of residential chemical dependency treatment. He indicated known was available for a support meeting. Mental status exam: The patient is an overweight male appearing his stated age. Hygiene is adequate grooming spare. He reports his mood is improved. Affect is constricted. He reports no longer feeling hopeless. He denies having any acute suicidal ideation intent or plan. He reports no homicidal ideation intent or plan. He denies having any auditory or visual hallucinations or any specific delusions. There is no observed evidence of psychosis. He demonstrates a linear thought process he demonstrates no tangential thoughts loose associations or flight of ideas. He does not appear hypomanic or manic. Insight and judgment improved. He remains oriented to person place and date. He demonstrates no verbal or physical aggressiveness. He demonstrates no involuntary repetitively movements. He describes future oriented thinking spontaneously. Impressions 1. Major depressive disorder recurrent severe without psychosis, alcohol use disorder, opioid use disorder, rule out PTSD Plan: The patient will be discharged mental health unit today. He will be transported to [facility] to begin inpatient chemical dependency treatment. He will continue on Trintellix 10 mg daily Vistaril 50 mg up to twice daily as needed for anxiety. We discussed the importance of him abstaining from any use of alcohol or marijuana or illicit drugs as these substances can provoke mood symptoms and elevate his safety risk. At this time there is no imminent safety risk he is appropriate for transition inpatient chemical dependency treatment. He is instructed to return to the hospital with any acute safety concerns. Patient Condition at Discharge: Stable Plan - Discharge Summary Discharge Rx Participant: No New Discharge Prescriptions: New Nicotine 21Mg/24Hr Patch [Habitrol] 1 patch TRANSDERM DAILY #14 patch Vortioxetine Hydrobromide [Trintellix] 10 mg PO DAILY #30 tablet hydrOXYzine PAMOATE [Vistaril] 50 mg PO BID #40 capsule Discharge Medication List Nicotine 21Mg/24Hr Patch [Habitrol] 1 patch TRANSDERM DAILY #14 patch 03/09/19 [Rx] Vortioxetine Hydrobromide [Trintellix] 10 mg PO DAILY #30 tablet 03/09/19 [Rx] hydrOXYzine PAMOATE [Vistaril] 50 mg PO BID #40 capsule 03/09/19 [Rx] Follow up Appointment(s)/Referral(s): [facility] [Outside] - 03/09/19 12:00 pm [facility] - [facility] Week Patient Instructions/Handouts: How to Stop Smoking (ED) Activity/Diet/Wound Care/Special Instructions: Keep your follow up appointments as scheduled. Continue medications as prescribed. Call your psychiatrist or primary care doctor when you need refills of your medications. Do not use alcohol or street drugs. No access to guns or weapons. Crisis line if needed .
== END 2019-03-09 10:47 | disposition home or self-care (01) | DRG 885 ==
LOC: EC 14:44 → 3MHU 03-01 14:13
PROVIDERS: ADMIT Psychiatry & Neurology Psychiatry; ATTEND Psychiatry & Neurology Psychiatry
DX: F33.2 Major depressive disorder, recurrent severe without psychotic features (principal); R45.851 Suicidal ideations; E66.3 Overweight; F10.129 Alcohol abuse with intoxication, unspecified; F11.19 Opioid abuse with unspecified opioid-induced disorder; F17.200 Nicotine dependence, unspecified, uncomplicated; F41.9 Anxiety disorder, unspecified; Z59.0 Homelessness; Z79.899 Other long term (current) drug therapy; Z82.49 Family history of ischemic heart disease and other diseases of the circulatory system; Z83.3 Family history of diabetes mellitus; Z91.410 Personal history of adult physical and sexual abuse; Z81.1 Family history of alcohol abuse and dependence; F43.10 Post-traumatic stress disorder, unspecified
CPT/HCPCS: 36415; 80053; 80306; 81003; 82075; 83735; 85025; 96374; 99285

== ENCOUNTER 2022-06-14 17:38 | Inpatient (IN) | payer OTHER ==
--- NOTE | 2022-06-14 18:22 | ED ---
General Adult HPI - General Chief complaint: Psychiatric Symptoms Stated complaint: Mental Health Time Seen by Provider: 06/14/22 17:56 Source: EMS Mode of arrival: EMS Limitations: no limitations - History of Present Illness Initial comments: Dictation was produced using [employer] dictation software. please excuse any grammatical, word or spelling errors. Chief Complaint: 37-year-old male presents to the emergency department for psych otic symptoms History of Present Illness: 7-year-old male is brought in by EMS. Patient is uncooperative he is a poor historian. When asked questions patient says "go read my file." According to police report patient was brought here for aggressive and psychotic symptoms. Apparently is been aggressive towards his mother and having suicidal ideation. Unable to obtain ROS secondary to patient being uncooperative PHYSICAL EXAM: General Impression: Alert and oriented x3, not in acute distress HEENT: Normocephalic atraumatic, extra-ocular movements intact, pupils equal and reactive to light bilaterally, mucous membranes moist. Cardiovascular: Heart regular rate and rhythm Chest: Able to complete full sentences, no retractions, no tachypnea Musculoskeletal: Pulses present and equal in all extremities, no peripheral edema Motor: no focal deficits noted Neurological: CN II-XII grossly intact, no focal motor or sensory deficits noted Skin: Intact with no visualized rashes Psych: Aggressive ED course: 37-year-old male presents to the emergency department for psychiatric evaluation. Patient allegedly here for suicidal ideation. Vital signs upon arrival are within acceptable limits. Patient's blood alcohol tested elevated. .Laboratory evaluation obtained. CBC, metabolic panel within acceptable limits. There does appear to be some evidence of alcoholic ketoacidosis. Serum alcohol level was 271. Patient will be admitted to observation with consultation to psychiatry. Admitted to [facility]. - Related Data Allergies Allergy/AdvReac Type Severity Reaction Status Date / Time No Known Allergies Allergy Verified 06/14/22 17:55 Review of Systems ROS Statement: Those systems with pertinent positive or pertinent negative responses have been documented in the HPI. ROS Other: All systems not noted in ROS Statement are negative. Past Medical History Past Medical History: No Reported History History of Any Multi-Drug Resistant Organisms: None Reported Past Surgical History: No Surgical Hx Reported Past Psychological History: Anxiety, Bipolar, Depression Smoking Status: Current every day smoker Past Alcohol Use History: Heavy Past Drug Use History: Marijuana General Exam Limitations: no limitations Course Vital Signs 10/28/22 17:45 Temperature 98.2 F Pulse Rate 96 Respiratory 16 Rate Blood Pressure 147/98 O2 Sat by Pulse 98 Oximetry Medical Decision Making - Lab Data Result diagrams: 06/14/22 18:32 06/14/22 18:32 Lab Results 06/14/22 06/14/22 Range/Units 18:32 18:32 WBC 13.5 H (3.8-10.6) k/uL RBC 5.17 (4.30-5.90) m/uL Hgb 16.6 (13.0-17.5) gm/dL Hct 46.7 (39.0-53.0) % MCV 90.4 (80.0-100.0) fL MCH 32.2 (25.0-35.0) pg MCHC 35.6 (31.0-37.0) g/dL RDW 13.7 (11.5-15.5) % Plt Count 261 (150-450) k/uL MPV 8.9 Neutrophils % 70 % Lymphocytes % 20 % Monocytes % 4 % Eosinophils % 3 % Basophils % 1 % Neutrophils # 9.5 H (1.3-7.7) k/uL Lymphocytes # 2.8 (1.0-4.8) k/uL Monocytes # 0.5 (0-1.0) k/uL Eosinophils # 0.4 (0-0.7) k/uL Basophils # 0.1 (0-0.2) k/uL Sodium 143 (137-145) mmol/L Potassium 3.9 (3.5-5.1) mmol/L Chloride 107 (98-107) mmol/L Carbon Dioxide 18 L (22-30) mmol/L Anion Gap 18 mmol/L BUN 9 (9-20) mg/dL Creatinine 0.83 (0.66-1.25) mg/dL Est GFR (CKD-EPI)AfAm >90 (>60 ml/min/1.73 sqM) Est GFR (CKD-EPI)NonAf >90 (>60 ml/min/1.73 sqM) Glucose 119 H (74-99) mg/dL Calcium 8.6 (8.4-10.2) mg/dL Serum Alcohol 271 H* mg/dL Disposition Clinical Impression: Alcohol intoxication, Suicidal ideation Disposition: ADMITTED IP TO THIS HOSP Condition: Fair Referrals: None,Stated [Primary Care Provider] - 1-2 days Decision Time: 18:59
[2022-06-14 18:38] LABS: Basophils % (A) 1 %; Eosinophils % (A) 3 %; HCT 46.7 % (39.0-53.0); HGB 16.6 gm/dL (13.0-17.5); Lymphocytes # (A) 2.8 k/uL (1.0-4.8); Lymphocytes % (A) 20 %; MCH 32.2 pg (25.0-35.0); MCHC 35.6 g/dL (31.0-37.0); MCV 90.4 fL (80.0-100.0); Mean Platelet Volume 8.9; Monocytes % (A) 4 %; Neutrophils # (A) 9.5 k/uL (1.3-7.7); Neutrophils % (A) 70 %; Platelet Count 261 k/uL (150-450); RBC 5.17 m/uL (4.30-5.90); RDW 13.7 % (11.5-15.5); WBC 13.5 k/uL (3.8-10.6)
[2022-06-14 18:39] LABS: Basophils # (A) 0.1 k/uL (0-0.2); Eosinophils # (A) 0.4 k/uL (0-0.7); Monocytes # (A) 0.5 k/uL (0-1.0)
[2022-06-14 18:49] LABS: African American GFR (CKD) >90 (>60 ml/min/1.73 sqM); Alcohol 271 mg/dL; Anion Gap 18 mmol/L; Blood Urea Nitrogen 9 mg/dL (9-20); Calcium 8.6 mg/dL (8.4-10.2); Carbon Dioxide 18 mmol/L (22-30); Chloride 107 mmol/L (98-107); Glucose 119 mg/dL (74-99); Non-African American GFR(CKD) >90 (>60 ml/min/1.73 sqM); Potassium 3.9 mmol/L (3.5-5.1); Sodium 143 mmol/L (137-145)
[2022-06-14] MEDS ORDERED: NALOXONE 0.4 MG/ML 1 ML VIAL IV PRN (18:56)
[2022-06-14] MEDS ORDERED: ZIPRASIDONE 20 MG VIAL IM STA (19:48)
[2022-06-15] MEDS ORDERED: LORazepam 2 MG/ML INJ IV PRN ×3 (00:09)
[2022-06-15] MEDS ORDERED: THIAMINE 100 MG/ML 2 ML VIAL IM STA (00:09)
--- NOTE | 2022-06-15 00:25 | P.HPIM ---
History of Present Illness H&P Date: 06/14/22 Chief Complaint: aggressive behavior 37 year old male was brought in by police due to aggressive behavior ,suicidal ideation, patient is uncooperative, he was restrained and sedated before my evaluation due to violent and aggressive behavior in the ED against staff. patient admits to heavy alcohol consumption , and drugs but does not specify , and when asked why police was involved he blamed his mother for that. he is poor historian and unable to provide any other meaningful history . he is asking to discontinue his restraints but per RN he was still showing violent behavior and would like to see him more cooperative before discontinuing his restraints. patient was pulling violently on his restraints every now and then during the interview and only answers selectively to my questions Review of Systems ROS unobtainable: due to mental status Past Medical History Past Medical History: No Reported History History of Any Multi-Drug Resistant Organisms: None Reported Past Surgical History: No Surgical Hx Reported Past Psychological History: Anxiety, Bipolar, Depression Smoking Status: Current every day smoker Past Alcohol Use History: Heavy Past Drug Use History: Marijuana - Past Family History family Family Medical History: Unable to Obtain Medications and Allergies Allergies Allergy/AdvReac Type Severity Reaction Status Date / Time No Known Allergies Allergy Verified 06/14/22 17:55 Physical Exam Vitals: Vital Signs Temp Pulse Resp BP Pulse Ox 06/14/22 17:45 98.2 F 96 16 147/98 98 Intake and Output 06/14/22 06/14/22 06/14/22 06:59 14:59 22:59 Other: Weight 136.078 kg Constitutional: no acute distress , uncooperative, in 4 point restraints Eyes: Anicteric sclerae, moist conjunctiva, Pupils equal round reactive to light ENMT: NC/AT Neck: Supple, no masses, or JVD No carotid bruits No thyromegaly Lungs: Clear to auscultation Clear to percussion Normal respiratory effort, no accessory muscle use Cardiovascular: Heart regular in rate and rhythm, No murmurs, gallops, or rubs No peripheral edema Abdominal: Soft Nontender, no guarding, rebound or rigidity Abdomen moving with respiration Normoactive bowel sounds No hepatomegaly, No splenomegaly No palpable mass Skin: Normal temperature, tone, texture, turgor No induration No subcutaneous nodules No rash, lesions No ulcers Extremities: No digital cyanosis No clubbing Pedal pulses intact and symmetrical Radial pulses intact and symmetrical No calf tenderness Psychiatric: Alert and oriented to person, place Neuro moving all extremities, cant assess any further , as patient uncooperative Lymphatics: no palpable cervical or supraclavicular lymph nodes Results CBC & Chem 7: 06/14/22 18:32 06/14/22 18:32 Labs: Abnormal Lab Results - Last 24 Hours (Table) 06/14/22 06/14/22 Range/Units 18:32 18:32 WBC 13.5 H (3.8-10.6) k/uL Neutrophils # 9.5 H (1.3-7.7) k/uL Carbon Dioxide 18 L (22-30) mmol/L Glucose 119 H (74-99) mg/dL Serum Alcohol 271 H* mg/dL Assessment and Plan Assessment: alcohol intoxication violent aggressive behavior alcohol withdrawal syndrome benzo per CIWA currently on 4 points restraints due to violent behavior IVF hydration thiamine high blood pressure monitor vital signs control alcohol withdrawal syndrome violent behavior reported suicidal ideation , patient denies psych evaluation DVT PPX heparin sc tid full code
[2022-06-15] MEDS: DEXTROSE 5%-0.45% NACL 1,000 ML IV SCH ×2 (01:13→08:41)
[2022-06-15] MEDS ORDERED: LORazepam 1 MG/0.5 ML VIAL IV PRN ×2 (04:28→04:29)
[2022-06-15] MEDS: LORazepam 1 MG/0.5 ML VIAL IV PRN ×3 (04:37→12:43)
[2022-06-15 05:54] VITALS: BP 136/89
[2022-06-15] MEDS ORDERED: HEPARIN SODIUM,PORCINE/PF 5,000 UNIT/0.5 ML SYRINGE SQ SCH (08:00)
[2022-06-15] MEDS ORDERED: chlordiazePOXIDE 25 MG CAP PO SCH (09:00)
[2022-06-15] MEDS ORDERED: THIAMINE 100 MG TAB PO SCH (09:00)
--- NOTE | 2022-06-15 09:40 | P.DS ---
Providers Date of admission: 06/14/22 19:56 Expected date of discharge: 06/15/22 Attending physician: Huseyin Retana MD Consults: 06/14/22 18:53 Consult Physician Routine Consulting Provider: Ottoniel Monique Consult Reason/Comments: eps jayna Do you want consulting provider notified?: Yes Primary care physician: Stated None Hospital Course: Discharge Diagnosis: Suicidal ideation Alcohol intoxication Alcohol dependency with impending alcohol withdrawal Leukocytosis, reactive Hospital Course: Patient is a 37-year-old male with no significant past medical history who was brought in by police due to aggressive behavior. In the ER he underwent an extensive evaluation. Initial vital signs within normal limits. Initial laboratory analysis showed a slightly elevated white blood cell count 13.5. He was placed in observation. The morning after admission he was clinically sober. He still endorsed wanting to hurt himself some thoughts of suicide. Patient is medically optimized for discharge.He was seen by EPS nursing and will be admitted to the mental health unit. Patient seen and examined at bedside. He doesn't endorse feelings of self harm. He feels slightly anxious. He denies any tremors. He typically drinks 1/5 daily. Vital signs reviewed and stable. General: nontoxic, no distress, appears at stated age Derm: warm, dry Head: atraumatic, normocephalic, symmetric Eyes: EOMI, no lid lag, anicteric sclera Mouth: no lip lesion, mucus membranes moist Cardiovascular: S1S2 reg, no murmur, positive posterior tibial pulse bilateral, Lungs: CTA bilateral, no rhonchi, no rales , no accessory muscle use Abdominal: soft, nontender to palpation, no guarding, no appreciable organomega ly Ext: no gross muscle atrophy, no edema, no contractures Neuro: CN II-XI grossly intact, no focal neuro deficits Psych: Alert, oriented, depressed affect A total of 25 minutes of time were spent preparing this complex discharge summary. Patient was discharged on 06/15/22. Patient Condition at Discharge: Fair Plan - Discharge Summary Discharge Rx Participant: No Follow up Appointment(s)/Referral(s): None,Stated [Primary Care Provider] - 1-2 days Discharge Disposition: TRANSFER TO PSYCH HOSP/UNIT
[2022-06-15] MEDS ORDERED: FOLIC ACID 1 MG TAB PO SCH (09:45)
[2022-06-15 13:24] VITALS: PULSE 71; RESP 18; TEMP 98.2
== END 2022-06-15 14:53 | DRG 897 ==
LOC: EC 17:38 → MERGE 19:56 → 4SSUR 19:56 → 5NMEDONC 22:21
PROVIDERS: ADMIT Student in an Organized Health Care Education/Training Program; ATTEND Student in an Organized Health Care Education/Training Program
DX: F10.229 Alcohol dependence with intoxication, unspecified (principal); R45.851 Suicidal ideations; E87.29 Other acidosis; F10.239 Alcohol dependence with withdrawal, unspecified; F41.9 Anxiety disorder, unspecified; F31.9 Bipolar disorder, unspecified; F17.200 Nicotine dependence, unspecified, uncomplicated; Y90.8 Blood alcohol level of 240 mg/100 ml or more; R45.6 Violent behavior; Z78.1 Physical restraint status
CPT/HCPCS: 36415; 80048; 80320; 82075; 85025; 87635; 96372; 99284

== ENCOUNTER 2022-06-15 15:55 | Inpatient (IN) | payer MEDICAID, OTHER ==
[2022-06-15] MEDS ORDERED: HALOPERIDOL LACTATE 5 MG/ML 1 ML VIAL IM PRN (15:59)
[2022-06-15] MEDS ORDERED: MAG HYDROX/AL HYDROX/SIMETH 30 ML CUP PO PRN (15:59)
[2022-06-15] MEDS ORDERED: MAGNESIUM HYDROXIDE 2,400 MG/10 ML CUP PO PRN (15:59)
[2022-06-15] MEDS ORDERED: diazePAM 5 MG TAB PO SCH (16:00)
[2022-06-15] MEDS ORDERED: LORazepam 1 MG/0.5 ML VIAL IM PRN (16:03)
[2022-06-15] MEDS: chlordiazePOXIDE 25 MG CAP PO SCH ×2 (17:10→20:04)
[2022-06-15] MEDS: LORazepam 1 MG TAB PO PRN (18:27)
[2022-06-15 20:00] LABS: Glucose,Whole Blood 114 mg/dL (70-110)
[2022-06-16] MEDS: LORazepam 1 MG TAB PO PRN ×4 (06:27→19:31)
[2022-06-16] MEDS: NICOTINE 14MG/24HR PATCH TRANSDERM SCH (07:55)
[2022-06-16] MEDS: FOLIC ACID 1 MG TAB PO SCH (07:56)
[2022-06-16] MEDS: MULTIVITAMINS, THERA 1 EACH TAB PO SCH (07:56)
[2022-06-16] MEDS: THIAMINE 100 MG TAB PO SCH (07:56)
[2022-06-16] MEDS: haloperidoL 5 MG TAB PO PRN (07:56)
[2022-06-16] MEDS: chlordiazePOXIDE 25 MG CAP PO SCH ×3 (07:56→20:27)
[2022-06-16] MEDS ORDERED: GABAPENTIN 300 MG CAP PO STA ×2 (09:12→09:35)
[2022-06-16 09:13] LABS: Basophils # (A) 0.1 k/uL (0-0.2); Basophils % (A) 0 %; Eosinophils # (A) 0.3 k/uL (0-0.7); Eosinophils % (A) 3 %; HCT 47.6 % (39.0-53.0); HGB 16.8 gm/dL (13.0-17.5); Lymphocytes # (A) 1.7 k/uL (1.0-4.8); Lymphocytes % (A) 15 %; MCHC 35.3 g/dL (31.0-37.0); MCV 90.6 fL (80.0-100.0); Mean Platelet Volume 9.8; Monocytes # (A) 0.4 k/uL (0-1.0); Monocytes % (A) 3 %; Neutrophils # (A) 8.3 k/uL (1.3-7.7); Neutrophils % (A) 77 %; Platelet Count 194 k/uL (150-450); RBC 5.25 m/uL (4.30-5.90); WBC 10.8 k/uL (3.8-10.6)
--- NOTE | 2022-06-16 09:30 | P.HP ---
Psychiatric H&P - . H&P Date: 06/16/22 History & Physical: Allergies Allergy/AdvReac Type Severity Reaction Status Date / Time No Known Allergies Allergy Verified 04/04/22 20:58 Vital Signs Temp 97.8 F 06/16/22 07:20 Pulse 100 06/16/22 07:20 Resp 16 06/16/22 07:20 BP 145/70 06/16/22 07:20 Pulse Ox FiO2 Intake & Output 06/15/22 06/16/22 06/16/22 18:59 06:59 18:59 Weight 143.137 kg Laboratory Last Values WBC 10.8 k/uL (3.8-10.6) H 06/16/22 08:10 RBC 5.25 m/uL (4.30-5.90) 06/16/22 08:10 Hgb 16.8 gm/dL (13.0-17.5) 06/16/22 08:10 Hct 47.6 % (39.0-53.0) 06/16/22 08:10 MCV 90.6 fL (80.0-100.0) 06/16/22 08:10 MCH 32.0 pg (25.0-35.0) 06/16/22 08:10 MCHC 35.3 g/dL (31.0-37.0) 06/16/22 08:10 RDW 14.0 % (11.5-15.5) 06/16/22 08:10 Plt Count 194 k/uL (150-450) 06/16/22 08:10 MPV 9.8 06/16/22 08:10 Neutrophils % 77 % 06/16/22 08:10 Lymphocytes % 15 % 06/16/22 08:10 Monocytes % 3 % 06/16/22 08:10 Eosinophils % 3 % 06/16/22 08:10 Basophils % 0 % 06/16/22 08:10 Neutrophils # 8.3 k/uL (1.3-7.7) H 06/16/22 08:10 Lymphocytes # 1.7 k/uL (1.0-4.8) 06/16/22 08:10 Monocytes # 0.4 k/uL (0-1.0) 06/16/22 08:10 Eosinophils # 0.3 k/uL (0-0.7) 06/16/22 08:10 Basophils # 0.1 k/uL (0-0.2) 06/16/22 08:10 POC Glucose (mg/dL) 114 mg/dL (70-110) H 06/15/22 19:58 POC Glu Furniture Finisher ID Lazara Flores 06/15/22 19:58 06/16/22 09:16 ID: This case of a 37-year-old single male with a history of psychosis History of present illness: The patient says that "my mother put me in here because she gets angry and diet purchased a new mattress, the woman is never worked a day in her life and she gets mad at me even though I'm a hard worker because I bought a mattress." Medications: The patient has been on a lot of medicines the ones that he says help and he likes R gabapentin 600, 3 times a day and Seroquel 300 at night which helps him sleep and clears out the voices the next morning. Symptoms: He says that he has hallucinations as he falls asleep and wakes up but also in the middle of the day. He tries to ignore them. He also thinks people are watching him. He worries that if he concentrates on the voices other people will be able to hear what is going on in his head as well. He sometimes sees fa nicki in front of him but he says I am not and easily frightened person so I ignore them. He says, "my mother has ruined my life and sometimes I just want to kill people." When asked him if he wanted to kill his mother, he said, "no but is somebody pissed me off,I don't know what I would do". Mental status exam the patient is quite intelligent, he could remember 3 of 3 objects for 5 minutes, he can name the presidents first and last name actually older Caal, he has some trouble with concentration so when asked to spell world backward he flipped O and R around, and in subtracting 7 from 93 he said 84 then thought for a while said 85 then thought for a while said no it's 86. When asked how her cats and snakes alike he made a face and said there was nothing similar that he thought for a while and said they have sayings and then he said nothing else and then said well they are nocturnal. For the grass is greener on the other side defense he said, "stay where UR is not any better over there" Social history the patient's only child born to his parents were never he said, "my dad knew better than to my mom". He is not sure mom has any other children she was and, "she kill my sister by drinking" he said that he was a alcohol syndrome baby according to mother. He says that she has been diagnosed with bipolar and treated with alcohol. He said, " she used to fluctuate between nice and evil and now she is just evil " The patient completed high school and said he did well he has never been in the has had some legal issues in the past due to drinking Substance use: He has tried just about everything currently specializes in alcohol. He used to take crystal meth and began to hallucinate but says that the hallucinations have not cleared since he quit and that is been quite a while. He knows he needs to go to rehab. He currently lives with his mother who has a roommate Diagnosis: Schizoaffective disorder Assessment: I believe the patient is a danger to himself and others Plan start him on gabapentin and Seroquel..
[2022-06-16 09:37] LABS: ALT 37 U/L (4-49); AST 32 U/L (17-59); African American GFR (CKD) >90 (>60 ml/min/1.73 sqM); Albumin 4.2 g/dL (3.5-5.0); Alkaline Phosphatase 65 U/L (38-126); Anion Gap 10 mmol/L; Blood Urea Nitrogen 8 mg/dL (9-20); Calcium 9.1 mg/dL (8.4-10.2); Carbon Dioxide 24 mmol/L (22-30); Chloride 103 mmol/L (98-107); Glucose 123 mg/dL (74-99); Non-African American GFR(CKD) >90 (>60 ml/min/1.73 sqM); Potassium 4.2 mmol/L (3.5-5.1); Sodium 137 mmol/L (137-145); Total Bilirubin 0.9 mg/dL (0.2-1.3)
[2022-06-16] MEDS: GABAPENTIN 300 MG CAP PO SCH ×2 (15:03→19:31)
[2022-06-16 16:57] LABS: Appearance,Urine Clear (Clear); Bilirubin,Urine Negative (Negative); Blood,Urine Negative (Negative); Color,Urine Yellow; Glucose,Urine (UA) Negative (Negative); Ketones,Urine Negative (Negative); Leukocyte Esterase,Urine Negative (Negative); Mucus,Urine Rare /hpf; Nitrite,Urine Negative (Negative); PH, Urine 6.5 (5.0-8.0); Protein,Urine 1+ (Negative); RBC,Urine 3 /hpf (0-5); Specific Gravity,Urine 1.023 (1.001-1.035); Squamous Epithelial Cell,Urine <1 /hpf (0-4); WBC,Urine 1 /hpf (0-5)
[2022-06-16] MEDS: ACETAMINOPHEN TAB 325 MG TAB PO PRN (17:19)
[2022-06-16] MEDS: QUEtiapine 100 MG TAB PO SCH (19:31)
[2022-06-17] MEDS: chlordiazePOXIDE 25 MG CAP PO SCH ×3 (08:25→20:29)
[2022-06-17] MEDS: FOLIC ACID 1 MG TAB PO SCH (08:25)
[2022-06-17] MEDS: GABAPENTIN 300 MG CAP PO SCH ×3 (08:25→20:28)
[2022-06-17] MEDS: THIAMINE 100 MG TAB PO SCH (08:26)
[2022-06-17] MEDS: LORazepam 1 MG TAB PO PRN ×5 (08:26→21:16)
[2022-06-17] MEDS: MULTIVITAMINS, THERA 1 EACH TAB PO SCH (08:26)
[2022-06-17] MEDS: NICOTINE 14MG/24HR PATCH TRANSDERM SCH (08:26)
--- NOTE | 2022-06-17 11:14 | P.PN ---
Progress Note - Text Progress Note Date: 06/17/22 Interval History: Patient was seen wandering the hallways and was directable and agreeable to speak with mortgage or loan underwriter in the office. Currently, the patient is reporting that he continues to express auditory hallucinations. He describes these voices as multiple voices that are constantly telling him to do things. He reports that they are also present when he is not depressed. He states that he often tries to ignore them. He does report ideas of reference however is vague on this. He otherwise denies any other paranoid or bizarre delusions. He reports no suicidal or homicidal ideation, intention, and/or plan. He denies any auditory or visual hallucinations. He reports no paranoia or other delusions. The patient does report that his heavy alcohol use likely contributed to his worsening psychotic symptoms. However, the patient reports that his withdrawal symptoms are present however appeared to be controlled. He does report minor tremors. Last CIWA score was 0. Mental Status Exam: General Appearance: Patient appears to be stated age is alert, directable, and cooperative. Obese body habitus. Behavior: Patient is calmly seated without any agitated behavior. Speech: Patient's speech is fluent and nonpressured. Mood/Affect: Mood is improving mildly, affect is congruent and constricted. Suicidality/Homicidality: Patient denies having any suicidal or homicidal ideation intent or plan. Perceptions: Patient denies any visual hallucinations however he does endorse auditory hallucinations. Though content/process: There is no evidence of any delusional thought content and thought process is linear and goal-directed. Memory and concentration: AOX3, grossly intact for the purposes of this session Judgment and insight: Improving mildly Vital Signs Temp 98.1 F 06/17/22 06:12 Pulse 85 06/17/22 06:12 Resp 16 06/17/22 06:12 BP 137/81 06/17/22 06:12 Pulse Ox 97 06/17/22 06:12 FiO2 Intake & Output 06/16/22 06/17/22 06/17/22 18:59 06:59 18:59 Weight 142.4 kg Laboratory Results - Last 24 Hours 06/16/22 06/16/22 08:10 16:[address] Glu mg/dL 125 Hemoglobin A1c 6.0 Urine Color Yellow Urine Appearance Clear Urine pH 6.5 Ur Specific [place] 1.023 Urine Protein 1+ H Urine Glucose (UA) Negative Urine Ketones Negative Urine Blood Negative Urine Nitrite Negative Urine Bilirubin Negative Urine Urobilinogen 2.0 Ur Leukocyte Esterase Negative Urine RBC 3 Urine WBC 1 Ur Squamous Epith Cells <1 Urine Mucus Rare H Assessment Schizoaffective disorder, depressive type Alcohol use disorder Plan: -Patient continues to meet criteria for inpatient psychiatric admission for symptom stabilization and safety. Patient has signed adult voluntary form and medication consent and was placed in patient's chart. -Medications: Seroquel 300 mg by mouth at bedtime for psychosis Gabapentin 600 mg by mouth 3 times a day for off label use for anxiety and alcohol use disorder Librium 25 mg by mouth twice a day for alcohol withdrawal -When necessary Ativan and Haldol for agitation/aggression. -NRT - nicotine patch -SW on board for discharge planning. Encouraged the patient to participate in milieu.
[2022-06-17 12:08] LABS: Chol/HDL Ratio 4.88 Ratio; LDL Cholesterol,Calculated 143.5 mg/dL (0.0-131.0)
[2022-06-17 14:56] VITALS: TEMP 97.5
[2022-06-17] MEDS: haloperidoL 5 MG TAB PO PRN (15:06)
--- NOTE | 2022-06-17 16:34 | P.HPMEDMHU ---
History of Present Illness H&P Date: 06/17/22 Patient is a 37-year-old male with no significant past medical history who was brought in by police due to aggressive behavior. He has been admitted to the mental health unit. Patient seen and examined at bedside. He states that he feels his withdrawal is bad. He is having some nausea no vomiting, he reports a headache, he reports diaphoresis, he is slightly tremulous. He feels as though Librium is not helping but the Ativan is helping. We had a long discussion Librium as a slower release medication with a slower onset and that the Ativan as a quick acting medication. I told him I would suggest increasing his Librium and remaining on the same amount of Ativan. I have also told him that this will need to be discussed with Dr. Lopes Pertinent positives and negatives as discussed in HPI, a complete review of systems was performed and all other systems are negative. Vital signs reviewed General: nontoxic, no distress, appears at stated age Derm: warm, dry Head: atraumatic, normocephalic, symmetric Eyes: EOMI, no lid lag, anicteric sclera, pupils equal round reactive to light ENT: Nose and ears atraumatic, no thrush, no pharyngeal erythema Neck: No thyromegaly, no cervical lymphadenopathy, trachea midline, supple Mouth: no lip lesion, mucus membranes moist Cardiovascular: S1S2 reg, no murmur, positive posterior tibial pulse bilateral, no edema, capillary refill less than 2 seconds Lungs: clear to auscultation bilateral, no rhonchi, no rales, no wheeze, no accessory muscle use Abdominal: soft, nontender to palpation, no guarding, no appreciable organomegaly, normal bowel sounds Ext: no gross muscle atrophy, muscle strength 5 out of 5 in all 4 extremities, no contractures Neuro: CN II-XII grossly intact, light touch intact all 4 extremities, finger to nose within normal limits, Psych: Alert, oriented, appropriate affect Assessment/Plan: Alcohol withdrawal -Thiamine, folic acid, Librium scheduled, Ativan as needed Leukocytosis, improving -No need to recheck as well as significantly improved Dyslipidemia -LDL is less than 150 and no need for treatment at this time. Should be followed closely. Suicidal ideation -Your psych management Thank you for allowing us to participate in the care of this pleasant patient. Do not hesitate to contact us with questions. Someone can be reached from the [facility] hospitalist group all hours of the day at [phone] or via [employer]. Past Medical History Additional Past Medical History / Comment(s): recovering heroin addict, Psychosis History of Any Multi-Drug Resistant Organisms: None Reported Past Surgical History: No Surgical Hx Reported, Tonsillectomy Past Anesthesia/Blood Transfusion Reactions: No Reported Reaction Past Psychological History: Anxiety, Depression Smoking Status: Current every day smoker Past Alcohol Use History: Daily, Occasional Additional Past Alcohol Use History / Comment(s): Approximately 1/5 daily Past Drug Use History: None Reported - Past Family History Mother Family Medical History: Diabetes Mellitus Father Family Medical History: Coronary Artery Disease (CAD) family Family Medical History: Unable to Obtain Medications and Allergies Home Medications Medication Instructions Recorded Confirmed Type Nicotine 21Mg/24Hr Patch [Habitrol] 1 patch TRANSDERM DAILY #14 patch 03/09/19 Rx Vortioxetine Hydrobromide 10 mg PO DAILY #30 tablet 03/09/19 Rx [Trintellix] hydrOXYzine pamoate [Vistaril] 50 mg PO BID #40 capsule 03/09/19 Rx Allergies Allergy/AdvReac Type Severity Reaction Status Date / Time No Known Allergies Allergy Verified 06/17/22 13:58 Physical Exam Osteopathic Statement: *. No significant issues noted on an osteopathic structural exam other than those noted in the History and Physical/Consult. Vitals: Vital Signs Temp Pulse Resp BP Pulse Ox 06/17/22 14:55 97.5 F L 119 H 18 127/83 97 06/17/22 06:12 98.1 F 85 16 137/81 97 Cranial Nerve Examination - Cranial Nerves Cranial Nerve II- Optic: Intact Cranial Nerve III- Oculomotor: Intact Cranial Nerve IV- Trochlear: Intact Cranial Nerve V- Trigeminal: Intact Cranial Nerve - Abducens: Intact Cranial Nerve VII- Facial: Intact Cranial Nerve VIII- Auditory: Intact Cranial Nerve IX- Glossopharyngeal: Intact Cranial Nerve X- Vagus: Intact Cranial Nerve XI- Accessory: Intact Cranial Nerve XII- Hypoglossal: Intact Results CBC & Chem 7: 06/16/22 08:10 06/16/22 08:10 Labs: Abnormal Lab Results - Last 24 Hours (Table) 06/16/22 06/16/22 Range/Units 08:10 16:52 Triglycerides 189.00 H (0.00-149.00) mg/dL Cholesterol 228.00 H (0.00-200.00) mg/dL LDL Cholesterol, Calc 143.5 H (0.0-131.0) mg/dL Urine Protein 1+ H (Negative) Urine Mucus Rare H (None) /hpf Thrombosis Risk Factor Assmnt - Choose All That Apply Any of the Below Risk Factors Present?: No Other Risk Factors: No Other congenital or acquired thrombophilia - If yes, enter type in comment: No Thrombosis Risk Factor Assessment Level: Very Low Risk
[2022-06-17] MEDS: QUEtiapine 100 MG TAB PO SCH (20:27)
[2022-06-17] MEDS ORDERED: chlordiazePOXIDE 25 MG CAP PO SCH (21:00)
[2022-06-18] MEDS: LORazepam 1 MG TAB PO PRN ×2 (09:30→16:56)
[2022-06-18] MEDS: GABAPENTIN 300 MG CAP PO SCH ×3 (09:31→20:53)
[2022-06-18] MEDS: MULTIVITAMINS, THERA 1 EACH TAB PO SCH (09:31)
[2022-06-18] MEDS: chlordiazePOXIDE 25 MG CAP PO SCH ×4 (09:31→20:53)
[2022-06-18] MEDS: FOLIC ACID 1 MG TAB PO SCH (09:31)
[2022-06-18] MEDS: THIAMINE 100 MG TAB PO SCH (09:31)
[2022-06-18] MEDS: NICOTINE 14MG/24HR PATCH TRANSDERM SCH (09:53)
[2022-06-18] MEDS: ACETAMINOPHEN TAB 325 MG TAB PO PRN (09:54)
[2022-06-18] MEDS: haloperidoL 5 MG TAB PO PRN (11:43)
--- NOTE | 2022-06-18 11:45 | P.PN ---
Progress Note - Text Progress Note Date: 06/18/22 Interval History: Patient was seen wandering the hallways and was directable and agreeable to speak with ad writer in his room. Last CIWA score noted to be as of 8 AM this morning. Currently, the patient's primary concern is his withdrawal symptoms. He does report feeling tired and slightly nauseated. He is otherwise denying any suicidal or homicidal ideation, intention, and/or plan. He is not reporting any auditory or visual hallucinations. He denies any paranoia or other delusions. He does report elevated anxiety. He has been receiving his Librium as well as Ativan when necessary. The patient however is anticipating discharge tomorrow as he feels that he would be ready to go then. He remains future and goal oriented. He denies any issues regarding his sleep however states appetite is low due to his withdrawal symptoms. Mental Status Exam: General Appearance: Patient appears to be stated age is alert, directable, and cooperative. Obese body habitus. Behavior: Patient is calmly lying down in bed without any agitated behavior. Speech: Patient's speech is fluent and nonpressured. Mood/Affect: Mood is improving mildly, affect is congruent and euthymic. Suicidality/Homicidality: Patient denies having any suicidal or homicidal ideation intent or plan. Perceptions: Patient denies any visual hallucinations however he does endorse auditory hallucinations. Though content/process: There is no evidence of any delusional thought content and thought process is linear and goal-directed. Memory and concentration: AOX3, grossly intact for the purposes of this session Judgment and insight: Improving mildly Vital Signs Temp 97.5 F L 06/18/22 06:00 Pulse 100 06/18/22 06:00 Resp 17 06/18/22 06:00 BP 114/74 06/18/22 06:00 Pulse Ox 93 L 06/18/22 06:00 FiO2 Laboratory Results - Last 24 Hours 06/16/22 08:10 Triglycerides 189.00 H Cholesterol 228.00 H LDL Cholesterol, Calc 143.5 H VLDL Cholesterol, Calc 37.80 HDL Cholesterol 46.70 Cholesterol/HDL Ratio 4.88 Assessment Schizoaffective disorder, depressive type Alcohol use disorder Plan: -Patient continues to meet criteria for inpatient psychiatric admission for symptom stabilization and safety. Patient has signed adult voluntary form and medication consent and was placed in patient's chart. -Medications: Seroquel 300 mg by mouth at bedtime for psychosis Gabapentin 600 mg by mouth 3 times a day for off label use for anxiety and alcohol use disorder Librium was increased to 50 mg 3 times a day for alcohol withdrawal -When necessary Ativan and Haldol for agitation/aggression. -NRT - nicotine patch -SW on board for discharge planning. Encouraged the patient to participate in milieu.
[2022-06-18] MEDS ORDERED: LORazepam 1 MG TAB PO STA (11:46)
[2022-06-18] MEDS: QUEtiapine 100 MG TAB PO SCH (20:53)
[2022-06-19] MEDS: FOLIC ACID 1 MG TAB PO SCH (08:33)
[2022-06-19] MEDS: MULTIVITAMINS, THERA 1 EACH TAB PO SCH (08:33)
[2022-06-19] MEDS: chlordiazePOXIDE 25 MG CAP PO SCH ×2 (08:33→12:34)
[2022-06-19] MEDS: THIAMINE 100 MG TAB PO SCH (08:33)
[2022-06-19] MEDS: NICOTINE 14MG/24HR PATCH TRANSDERM SCH (08:33)
[2022-06-19] MEDS: GABAPENTIN 300 MG CAP PO SCH (08:33)
[2022-06-19] MEDS: haloperidoL 5 MG TAB PO PRN (09:35)
[2022-06-19] MEDS: LORazepam 1 MG TAB PO PRN (09:35)
[2022-06-19 10:26] VITALS: BP 136/78; PULSE 120; RESP 18
--- NOTE | 2022-06-19 14:12 | P.DS ---
Providers Date of admission: 06/15/22 15:56 Expected date of discharge: 06/19/22 Attending physician: Vinod Arauz MD Consults: 06/15/22 15:59 Consult Physician Routine Consulting Provider: Quique Velasco Consult Reason/Comments: medical management Do you want consulting provider notified?: Already Contacted Primary care physician: Stated None - Discharge Diagnosis(es) (1) Schizoaffective disorder, depressive type Status: Acute Priority: High (2) Alcohol use disorder Status: Chronic Priority: Medium Hospital Course: Admission HPI: Initial psychiatric evaluation was completed by Dr. Ewing on 06/16/2022 who wrote: "This case of a 37-year-old single male with a history of psychosis History of present illness: The patient says that "my mother put me in here because she gets angry and diet purchased a new mattress, the woman is never worked a day in her life and she gets mad at me even though I'm a hard worker because I bought a mattress." Medications: The patient has been on a lot of medicines the ones that he says help and he likes R gabapentin 600, 3 times a day and Seroquel 300 at night which helps him sleep and clears out the voices the next morning. Symptoms: He says that he has hallucinations as he falls asleep and wakes up but also in the middle of the day. He tries to ignore them. He also thinks people are watching him. He worries that if he concentrates on the voices other people will be able to hear what is going on in his head as well. He sometimes sees faces in front of him but he says I am not and easily frightened person so I ignore them. He says, "my mother has ruined my life and sometimes I just want to kill people." When asked him if he wanted to kill his mother, he said, "no but is somebody pissed me off,I don't know what I would do". Mental status exam the patient is quite intelligent, he could remember 3 of 3 objects for 5 minutes, he can name the presidents first and last name actually older Caal, he has some trouble with concentration so when asked to spell world backward he flipped O and R around, and in subtracting 7 from 93 he said 84 then thought for a while said 85 then thought for a while said no it's 86. When asked how her cats and snakes alike he made a face and said there was nothing similar that he thought for a while and said they have sayings and then he said nothing else and then said well they are nocturnal. For the grass is greener on the other side defense he said, "stay where [place] is not any better over there" Social history the patient's only child born to his parents were never he said, "my dad knew better than to my mom". He is not sure mom has any other children she was and, "she kill my sister by drinking" he said that he was a alcohol syndrome baby according to mother. He says that she has been diagnosed with bipolar and treated with alcohol. He said, " she used to fluctuate between nice and evil and now she is just evil " The patient completed high school and said he did well he has never been in the has had some legal issues in the past due to drinking Substance use: He has tried just about everything currently specializes in alcohol. He used to take crystal meth and began to hallucinate but says that the hallucinations have not cleared since he quit and that is been quite a while. He knows he needs to go to rehab. He currently lives with his mother who has a roommate" Hospital course: Upon admission to the unit patient was initially presenting as euthymic however endorsing irritability. Patient was however directable and agreeable to commence treatment. Patient got along well with other patients on the unit and followed unit protocol. Patient was compliant with the medications and denied any side effects throughout hospital course. Patient was started on Seroquel and gabapentin for management of mood and psychosis. Patient spoke of his stressors and engaged in therapy both group and individual. Patient was also seen by [facility] team for history and physical exam. The patient did have significant issues with alcohol withdrawal throughout the hospitalization and attempts to taper off his Librium was met with elevated CIWA scores. Therefore, the patient's Librium was continued. The patient initially had a plan to go to [facility] however when informed that they would cut off all his benzodiazepine medications, the deci catalina was made to discharge the patient home instead as he continued to present with the risk of acute withdrawal. On the day of discharge, the patient is not reporting any suicidal or homicidal ideation, intention,/or plan. He is not reporting any auditory or visual hallucinations. He denies any paranoia or other delusions. Patient has been in adherent with his medication is not reporting any significant side effects at this time. He remains future and goal oriented with a desire to go to rehab in the near future. Mental status exam: General Appearance: Patient appears to be stated age is alert, pleasant, and cooperative. Patient is in no acute distress and has fair hygiene and grooming Behavior: Patient is calmly seated without any agitated behavior. Speech: Patient's speech is fluent and nonpressured. Mood/Affect: Patient reports their mood is "much better", affect is congruent and euthymic. Suicidality/Homicidality: Patient denies having any suicidal or homicidal ideation intent or plan. Perceptions: Patient denies any auditory or visual hallucinations. Though content/process: There is no evidence of any delusional thought content and thought process is linear and goal-directed. He is future oriented. Memory and concentration: AOX3, grossly intact for the purposes of this session. Can spell "WORLD" backwards correctly. Judgment and insight: Improved with guarded prognosis Impression: Schizoaffective disorder, depressive type Alcohol use disorder Plan: -Continue with discharge today as patient has improved and stabilized psychiatrically and is not currently an imminent threat to himself and/or others. Patient remain at chronically elevated risk due to his alcohol use. -Continue medications: We'll discharge the patient on Librium for alcohol withdrawal. The medication will be gradually tapered with instructions given to the patient. The risks of coingestion with alcohol was made clearly to the patient. He vehemently denies any desire to drink. Seroquel 300 mg by mouth at bedtime for psychosis gabapentin 600 mg by mouth 3 times a day for off label use for anxiety and alcohol use disorder -Patient was counseled on the need for medication compliance and appropriate follow-up at mental health and also primary care for medical issues. Patient verbalized understanding and agreed. -Social work to arrange for and conduct family meeting to ensure safety upon discharge and answer any questions/concerns. Social work also to arrange for patients follow up appointments with [facility] for psychiatric care along with follow up with primary care provider. -Patient counseled on abstaining from recreational drugs and marijuana and alcohol. Was informed/educated on the adverse effects on their physical and mental health. Patient verbally agreed and understood. Patient will be going to rehab in the near future -Patient was instructed to return to the hospital or seek immediate medical care if their psychiatric or medical symptoms do worsen or reoccur. -Psychoeducation and supportive therapy provided to patient. Risks and benefits of pharmacological treatment versus the risks and benefits of nontreatment weight and discussed. Informed consent discussion held. Common side effects of psychotropics discussed such as, but not limited to headache, GI disturbance, sexual dysfunction, movement disorders, sedation, and orthostatic hypotension. Life threatening and blackbox warnings of prescribed medications also discussed. Potential risks of operating a vehicle or heavy machinery discussed with patient at length. Advised on importance of compliance and a reliable and responsible manner. Patient advised to review FDA consumer labeling of all medications prior to taking. Patient verbalized understanding of potential risks, and agrees with current treatment plan. Patient advised to medically contact physician/emergency personnel if any acute changes in condition occur. Vital Signs Temp 97.5 F L 06/18/22 06:00 Pulse 120 H 06/19/22 08:33 Resp 18 06/19/22 08:33 BP 136/78 06/19/22 08:33 Pulse Ox 97 06/19/22 08:33 FiO2 Laboratory Results WBC 10.8 k/uL (3.8-10.6) H 06/16/22 08:10 RBC 5.25 m/uL (4.30-5.90) 06/16/22 08:10 Hgb 16.8 gm/dL (13.0-17.5) 06/16/22 08:10 Hct 47.6 % (39.0-53.0) 06/16/22 08:10 MCV 90.6 fL (80.0-100.0) 06/16/22 08:10 MCH 32.0 pg (25.0-35.0) 06/16/22 08:10 MCHC 35.3 g/dL (31.0-37.0) 06/16/22 08:10 RDW 14.0 % (11.5-15.5) 06/16/22 08:10 Plt Count 194 k/uL (150-450) 06/16/22 08:10 MPV 9.8 06/16/22 08:10 Neutrophils % 77 % 06/16/22 08:10 Lymphocytes % 15 % 06/16/22 08:10 Monocytes % 3 % 06/16/22 08:10 Eosinophils % 3 % 06/16/22 08:10 Basophils % 0 % 06/16/22 08:10 Neutrophils # 8.3 k/uL (1.3-7.7) H 06/16/22 08:10 Lymphocytes # 1.7 k/uL (1.0-4.8) 06/16/22 08:10 Monocytes # 0.4 k/uL (0-1.0) 06/16/22 08:10 Eosinophils # 0.3 k/uL (0-0.7) 06/16/22 08:10 Basophils # 0.1 k/uL (0-0.2) 06/16/22 08:10 Sodium 137 mmol/L (137-145) 06/16/22 08:10 Potassium 4.2 mmol/L (3.5-5.1) 06/16/22 08:10 Chloride 103 mmol/L (98-107) 06/16/22 08:10 Carbon Dioxide 24 mmol/L (22-30) 06/16/22 08:10 Anion Gap 10 mmol/L 06/16/22 08:10 BUN 8 mg/dL (9-20) L 06/16/22 08:10 Creatinine 0.78 mg/dL (0.66-1.25) 06/16/22 08:10 Est GFR (CKD-EPI)AfAm >90 (>60 ml/min/1.73 sqM) 06/16/22 08:10 Est GFR (CKD-EPI)NonAf >90 (>60 ml/min/1.73 sqM) 06/16/22 08:10 Glucose 123 mg/dL (74-99) H 06/16/22 08:10 POC Glucose (mg/dL) 114 mg/dL (70-110) H 06/15/22 19:58 POC Glu [place] Miller ID Lazara Flores 06/15/22 19:[address] Glu mg/dL 125 06/16/22 08:10 Hemoglobin A1c 6.0 % (0.0-6.0) 06/16/22 08:10 Calcium 9.1 mg/dL (8.4-10.2) 06/16/22 08:10 Total Bilirubin 0.9 mg/dL (0.2-1.3) 06/16/22 08:10 AST 32 U/L (17-59) 06/16/22 08:10 ALT 37 U/L (4-49) 06/16/22 08:10 Alkaline Phosphatase 65 U/L (38-126) 06/16/22 08:10 Total Protein 7.0 g/dL (6.3-8.2) 06/16/22 08:10 Albumin 4.2 g/dL (3.5-5.0) 06/16/22 08:10 Triglycerides 189.00 mg/dL (0.00-149.00) H 06/16/22 08:10 Cholesterol 228.00 mg/dL (0.00-200.00) H 06/16/22 08:10 LDL Cholesterol, Calc 143.5 mg/dL (0.0-131.0) H 06/16/22 08:10 VLDL Cholesterol, Calc 37.80 mg/dL (5.00-40.00) 06/16/22 08:10 HDL Cholesterol 46.70 mg/dL (40.00-60.00) 06/16/22 08:10 Cholesterol/HDL Ratio 4.88 Ratio 06/16/22 08:10 TSH 2.980 mIU/L (0.465-4.680) 06/16/22 08:10 Urine Color Yellow 06/16/22 16:52 Urine Appearance Clear (Clear) 06/16/22 16:52 Urine pH 6.5 (5.0-8.0) 06/16/22 16:52 Ur Specific [place] 1.023 (1.001-1.035) 06/16/22 16:52 Urine Protein 1+ (Negative) H 06/16/22 16:52 Urine Glucose (UA) Negative (Negative) 06/16/22 16:52 Urine Ketones Negative (Negative) 06/16/22 16:52 Urine Blood Negative (Negative) 06/16/22 16:52 Urine Nitrite Negative (Negative) 06/16/22 16:52 Urine Bilirubin Negative (Negative) 06/16/22 16:52 Urine Urobilinogen 2.0 mg/dL (<2.0) 06/16/22 16:52 Ur Leukocyte Esterase Negative (Negative) 06/16/22 16:52 Urine RBC 3 /hpf (0-5) 06/16/22 16:52 Urine WBC 1 /hpf (0-5) 06/16/22 16:52 Ur Squamous Epith Cells <1 /hpf (0-4) 06/16/22 16:52 Urine Mucus Rare /hpf (None) H 06/16/22 16:52 Allergies Allergy/AdvReac Type Severity Reaction Status Date / Time No Known Allergies Allergy Verified 06/17/22 13:58 Patient Condition at Discharge: Stable Plan - Discharge Summary Discharge Rx Participant: No New Discharge Prescriptions: New Folic Acid 1 mg PO DAILY 30 Days tab QUEtiapine [SEROquel] 300 mg PO HS 30 Days tab chlordiazePOXIDE HCl [Librium] 50 mg PO QID #12 cap Multivitamins, Thera [Multivitamin (formulary)] 1 each PO DAILY 30 Days tab Gabapentin [Neurontin] 600 mg PO TID 30 Days cap Thiamine [Vitamin B-1] 100 mg PO DAILY 30 Days tab Discontinued Nicotine 21Mg/24Hr Patch [Habitrol] 1 patch TRANSDERM DAILY #14 patch Vortioxetine Hydrobromide [Trintellix] 10 mg PO DAILY #30 tablet hydrOXYzine pamoate [Vistaril] 50 mg PO BID #40 capsule Discharge Medication List Folic Acid 1 mg PO DAILY 30 Days tab 06/19/22 [Rx] Gabapentin [Neurontin] 600 mg PO TID 30 Days cap 06/19/22 [Rx] Multivitamins, Thera [Multivitamin (formulary)] 1 each PO DAILY 30 Days tab 06/19/22 [Rx] QUEtiapine [SEROquel] 300 mg PO HS 30 Days tab 06/19/22 [Rx] Thiamine [Vitamin B-1] 100 mg PO DAILY 30 Days tab 06/19/22 [Rx] chlordiazePOXIDE HCl [Librium] 50 mg PO QID #12 cap 06/19/22 [Rx] Follow up Appointment(s)/Referral(s): [facility]Outside] - 06/20/22 9:00 am (with intake) [facility] [NON-STAFF] - 1 Week Patient Instructions/Handouts: How to Stop Smoking (DC), Schizoaffective Disorder (DC), Abuse of Alcohol (DC) Activity/Diet/Wound Care/Special Instructions: Avoid the use of street drugs and alcohol. Take all prescriptions as prescribed. When you are in need of refills on your medications, please contact your medical provider and/or outpatient psychiatrist to have this done. Please go to scheduled outpatient appointment for aftercare treatment. If symptoms return or become worse, call the crisis line at and/or go to the nearest emergency room for evaluation. Discharge Disposition: HOME SELF-CARE
== END 2022-06-19 13:15 | disposition home or self-care (01) | DRG 885 ==
LOC: 3MHU 15:56
PROVIDERS: ADMIT Psychiatry & Neurology Psychiatry; ATTEND Psychiatry & Neurology Psychiatry
DX: F25.1 Schizoaffective disorder, depressive type (principal); F10.239 Alcohol dependence with withdrawal, unspecified; F41.9 Anxiety disorder, unspecified; Z79.899 Other long term (current) drug therapy
CPT/HCPCS: 80053; 80061; 81001; 83036; 84443; 85025

== ENCOUNTER 2022-06-25 10:13 | Inpatient (IN) | payer MEDICAID, OTHER ==
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
[2022-06-25] MEDS ORDERED: LORazepam 2 MG/ML INJ IM STA ×2 (11:04→15:39)
[2022-06-25] MEDS ORDERED: IBUPROFEN 600 MG TAB PO STA ×2 (11:58→19:18)
[2022-06-25 13:49] LABS: Amphetamine Screen,Urine Not Detected (NotDetected); Barbiturate Screen,Urine Not Detected (NotDetected); Benzodiazepines Screen,Urine Detected (NotDetected); Cocaine Screen,Urine Not Detected (NotDetected); Methadone Screen, Urine Not Detected (NotDetected); Opiate Screen,Urine Not Detected (NotDetected); Oxycodone Screen, Urine Not Detected (NotDetected); Phencyclidine Screen,Urine Not Detected (NotDetected); Tricyclic Antidepressant,Urine Not Detected (NotDetected); Urn Cannabinoid Scrn Detected (NotDetected)
[2022-06-25] MEDS ORDERED: NEOMYCIN-BACITRACIN-POLY OINT 14 GM TUBE TOPICAL STA (15:39)
[2022-06-25] MEDS: LORazepam 1 MG TAB PO STA ×2 (16:59→21:05)
[2022-06-25] MEDS ORDERED: HALOPERIDOL LACTATE 5 MG/ML 1 ML VIAL IM PRN (19:49)
[2022-06-25] MEDS ORDERED: MAG HYDROX/AL HYDROX/SIMETH 30 ML CUP PO PRN (19:49)
[2022-06-25] MEDS ORDERED: MAGNESIUM HYDROXIDE 2,400 MG/10 ML CUP PO PRN (19:49)
[2022-06-25] MEDS ORDERED: LORazepam 1 MG/0.5 ML VIAL IM PRN (19:50)
[2022-06-25] MEDS ORDERED: MELATONIN 3 MG TABLET PO SCH (21:00)
[2022-06-25] MEDS ORDERED: QUEtiapine 100 MG TAB PO SCH (21:00)
[2022-06-25] MEDS: GABAPENTIN 300 MG CAP PO SCH (21:01)
[2022-06-25] MEDS: chlordiazePOXIDE 25 MG CAP PO SCH (21:01)
[2022-06-26] MEDS: ACETAMINOPHEN TAB 325 MG TAB PO PRN ×3 (08:09→17:42)
[2022-06-26] MEDS: MULTIVITAMINS, THERA 1 EACH TAB PO SCH (08:09)
[2022-06-26] MEDS: LORazepam 1 MG TAB PO PRN ×3 (08:09→20:54)
[2022-06-26] MEDS: chlordiazePOXIDE 25 MG CAP PO SCH ×3 (08:09→20:52)
[2022-06-26] MEDS: THIAMINE 100 MG TAB PO SCH (08:09)
[2022-06-26] MEDS: FOLIC ACID 1 MG TAB PO SCH (08:09)
[2022-06-26] MEDS: GABAPENTIN 300 MG CAP PO SCH ×3 (08:10→20:51)
[2022-06-26] MEDS: NICOTINE 14MG/24HR PATCH TRANSDERM SCH (08:10)
[2022-06-26] MEDS: haloperidoL 5 MG TAB PO PRN (10:55)
[2022-06-26] MEDS ORDERED: MELATONIN 3 MG TABLET PO SCH (13:45)
[2022-06-26] MEDS ORDERED: chlordiazePOXIDE 25 MG CAP PO ONE (14:00)
[2022-06-26] MEDS ORDERED: chlordiazePOXIDE 25 MG CAP PO SCH (14:00)
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
[2022-06-26] MEDS: PALIPERIDONE 3 MG TAB.ER.24 PO SCH ×2 (15:39→20:53)
--- NOTE | 2022-06-26 16:26 | P.CONS ---
History of Present Illness - Reason for Consult Consult date: 06/26/22 - History of Present Illness Patient is a 37-year-old male with PMH of hypertension, nicotine abuse, alcohol abuse that presents the ED for behavioral disturbances. He has been admitted to mental health unit for further management of symptoms. [facility] has been consulted for medical management of this patient. Patient complains of pain in both of his hands. He is unsure if there was any trauma involved. He denies any syncope or falls. Right hand pain starts at the first digit and extends to the right wrist. Left hand pain is worse in the third and forth digit. He has abrasions over both of his hands. He also has a wound over the plantar aspect of his right hand. Pain is 8 out of 10 in severity. Patient reports drinking a fifth of hard liquor daily. Last drink was yesterday morning. Patient reports history of alcohol withdrawal symptoms. He also smokes a pack of cigarettes daily. Patient currently denies any headache, lower extremity edema, nausea vomiting, fever chills, cough, chest pain, shortness of breath, palpitations, changes in urination or bowel habits. No changes in appetite or weight. He denies any dizziness, numbness/weakness/tingling of the extremities. Review of systems is performed and is negative except above. General: non toxic, no distress, appears at stated age, obese Derm: warm, dry, abrasions bilateral dorsal hands Head: atraumatic, normocephalic, symmetric Eyes: EOMI, no lid lag, anicteric sclera Mouth: no lip lesion, mucus membranes moist Cardiovascular: S1S2 reg, no murmur Lungs: Decreased breath sounds bilateral with scattered wheezing, no rhonchi, no rales , no accessory muscle use Abdominal: soft, nontender to palpation, no guarding, no appreciable organomegaly Ext: no gross muscle atrophy, no edema, no contractures, restricted ROM of the R thumb and R + L wrist due to pain, TTP base of the 3rd and 4th digit of the L hand. Neuro: CN II-XI grossly intact, no focal neuro deficits Psych: Alert, oriented, appropriate affect #Hypertension #Bilateral wrist pain #Bilateral hand abrasions #History of alcohol abuse with impending withdrawal #Nicotine abuse #Marijuana use #Morbid obesity BP 136/75. Not on antihypertensive medication at home. Could also be related to EtOH withdrawal. We will continue to monitor for now. Adjust medication if necessary. Obtain bilateral hand and wrist x-ray to rule out fracture. Local wound care. Patient will be placed on CIWA protocol. Ativan and Librium is ordered PRN. Continue folic acid, multivitamin and thiamine. Continue nicotine patch. Patient advised against illicit substance abuse. Patient would benefit from a structured weight loss program. Thank you for this consultation. Please call [facility] with additional questions or concerns. Past Medical History Past Medical History: Hypertension Additional Past Medical History / Comment(s): recovering heroin addict, Psychosis History of Any Multi-Drug Resistant Organisms: None Reported Past Surgical History: Tonsillectomy Past Anesthesia/Blood Transfusion Reactions: No Reported Reaction Past Psychological History: Anxiety, Bipolar, Depression Smoking Status: Current every day smoker Past Alcohol Use History: Daily, Heavy, Occasional Additional Past Alcohol Use History / Comment(s): Approximately 1/5 daily Past Drug Use History: Marijuana Medications and Allergies Home Medications Medication Instructions Recorded Confirmed Type Folic Acid 1 mg PO DAILY 30 Days tab 06/19/22 06/25/22 Rx Gabapentin [Neurontin] 600 mg PO TID 30 Days cap 06/19/22 06/25/22 Rx Multivitamins, Thera [Multivitamin 1 each PO DAILY 30 Days tab 06/19/22 06/25/22 Rx (formulary)] QUEtiapine [SEROquel] 300 mg PO HS 30 Days tab 06/19/22 06/25/22 Rx Thiamine [Vitamin B-1] 100 mg PO DAILY 30 Days tab 06/19/22 06/25/22 Rx Allergies Allergy/AdvReac Type Severity Reaction Status Date / Time No Known Allergies Allergy Verified 06/25/22 15:11 Physical Exam Vitals: Vital Signs Temp Pulse Pulse Pulse Resp BP BP 06/26/22 12:31 98.2 F 75 18 136/75 06/25/22 21:08 96.6 F L 71 18 176/90 06/25/22 16:59 88 18 160/82 Pulse Ox 06/26/22 12:31 96 06/25/22 21:08 06/25/22 16:59 97 Intake and Output 06/26/22 06/26/22 06/26/22 06:59 14:59 22:59 Other: Weight 145 kg
[2022-06-26] MEDS: NICOTINE GUM (POLACRILEX) 2 MG GUM BUCCAL PRN ×2 (16:44→20:08)
--- NOTE | 2022-06-26 17:00 | XR ---
EXAMINATION TYPE: XR hand complete bilateral DATE OF EXAM: 06/26/2022 COMPARISON: NONE HISTORY: Abrasions. Injury. TECHNIQUE: 3 views each hand FINDINGS: There is some deformity of the distal left radius that could relate to an old healed fractu re. The carpal bones are intact. Metacarpals are intact. I see no fracture nor dislocation. Joint spa nicki are fairly normal. IMPRESSION: No acute abnormality of the left and right hand. There is likely an old fracture of the d istal left radius.
[2022-06-26] MEDS ORDERED: MELATONIN 5 MG TABLET PO SCH (21:00)
[2022-06-26] MEDS ORDERED: DOXEPIN 10 MG CAP PO SCH (21:00)
[2022-06-27] MEDS: LORazepam 1 MG TAB PO PRN ×4 (04:23→22:22)
[2022-06-27] MEDS: haloperidoL 5 MG TAB PO PRN (04:23)
[2022-06-27] MEDS: ACETAMINOPHEN TAB 325 MG TAB PO PRN ×3 (04:23→20:31)
[2022-06-27] MEDS: GABAPENTIN 300 MG CAP PO SCH ×3 (08:33→20:31)
[2022-06-27] MEDS: chlordiazePOXIDE 25 MG CAP PO SCH ×3 (08:33→20:30)
[2022-06-27] MEDS: PALIPERIDONE 3 MG TAB.ER.24 PO SCH (08:34)
[2022-06-27] MEDS: THIAMINE 100 MG TAB PO SCH (08:34)
[2022-06-27] MEDS: FOLIC ACID 1 MG TAB PO SCH (08:34)
[2022-06-27] MEDS: MULTIVITAMINS, THERA 1 EACH TAB PO SCH (08:34)
[2022-06-27] MEDS: NICOTINE 14MG/24HR PATCH TRANSDERM SCH (08:35)
--- NOTE | 2022-06-27 10:21 | P.PN ---
Progress Note - Text Progress Note Date: 06/27/22 Interval History: Patient was seen laying in bed today and was directable and agreeable to speak with story writer in the office. Patient was sleeping and awoken by story writer. He states that he is doing a bit better today with regard to his mood. States that he is still having mild anxiety during the day. Claims that he only slept about 4-5 hours last night. He is claiming that he is having mild withdrawal symptoms at this time and we spoke about decreasing his Librium. He appears to be more directable during conversation and more cooperative. States that the voices have been decreasing in nature and becoming less frequent. States that he is having a fair appetite. At this time patient denies any suicidal or homical ideations, intent or plan. Patient denies any visual hallucinations and denies any paranoia or delusions. Patient denies any side effects from the medications and has been compliant with meds. Mental Status Exam: General Appearance: Patient appears to be overweight, shaved head, stated age is alert, directable, and attempts to cooperate. Patient appears to have improving hygiene and grooming. Behavior: Patient is seated without any agitated behavior. Attempts to cooperate. Speech: Patient's speech is fluent and nonpressured. Mood/Affect: Patient reports their mood is improving midlly, affect is congruent and constricted. Suicidality/Homicidality: Patient denies having any homicidal ideation intent or plan. denies any suicidal thoughts, no intent or plan. Perceptions: Patient denies any visual hallucinations admits to auditory hallucinations which are improving. Though content/process: There is no evidence of any delusional thought content and thought process is linear and goal-directed. Memory and concentration: AOX3, grossly intact for the purposes of this session Judgment and insight: poor, improving mildly IMPRESSIONS: Schizoaffective disorder Alcohol use disorder, severe dependence Plan: -Patient continues to meet criteria for inpatient psychiatric admission for symptom stabilization and safety. Patient has signed adult voluntary form and medication consent and was placed in patient's chart. -Medications: Librium decreased down to 25 mg qid for alcohol withdrawal. increase Doxepin 20 mg daily at bedtime for sleep/mood. increase Paliperidone by mouth 3 mg + 6 mg qhs for psychosis/mood stabilization. -When necessary Ativan and Haldol for agitation/aggression. -thiamine, MVM for etoh use -CIWA protocol with Ativan PRN for ETOH withdrawal -NRT - nicotine patch -SW on board for discharge planning. Encouraged the patient to participate in milieu. will give number for access line today for inpt rehab.
[2022-06-27] MEDS ORDERED: chlordiazePOXIDE 25 MG CAP PO ONE (13:00)
[2022-06-27] MEDS: PALIPERIDONE 6 MG TAB.ER.24 PO SCH (20:31)
[2022-06-27] MEDS ORDERED: DOXEPIN 10 MG CAP PO SCH (21:00)
[2022-06-27] MEDS: NICOTINE GUM (POLACRILEX) 2 MG GUM BUCCAL PRN (21:10)
[2022-06-28] MEDS: THIAMINE 100 MG TAB PO SCH (07:41)
[2022-06-28] MEDS: NICOTINE 14MG/24HR PATCH TRANSDERM SCH (07:41)
[2022-06-28] MEDS: FOLIC ACID 1 MG TAB PO SCH (07:41)
[2022-06-28] MEDS: chlordiazePOXIDE 25 MG CAP PO SCH ×4 (07:41→21:22)
[2022-06-28] MEDS: GABAPENTIN 300 MG CAP PO SCH ×3 (07:41→21:20)
[2022-06-28] MEDS: NICOTINE GUM (POLACRILEX) 2 MG GUM BUCCAL PRN ×2 (07:41→16:12)
[2022-06-28] MEDS: MULTIVITAMINS, THERA 1 EACH TAB PO SCH (07:42)
[2022-06-28] MEDS: ACETAMINOPHEN TAB 325 MG TAB PO PRN ×3 (07:58→21:21)
[2022-06-28] MEDS: LORazepam 1 MG TAB PO PRN ×3 (08:39→21:20)
[2022-06-28] MEDS ORDERED: PALIPERIDONE 3 MG TAB.ER.24 PO SCH (09:00)
[2022-06-28] MEDS ORDERED: chlordiazePOXIDE 25 MG CAP PO ONE (11:00)
--- NOTE | 2022-06-28 13:05 | P.PN ---
Progress Note - Text Progress Note Date: 06/28/22 Interval History: Patient was seen laying in bed today and was directable and agreeable to speak with tech writer. Patient states that he is feeling somewhat anxious today however states that "I'm trying to overcome it". He claims that he still hearing some voices however these have been improving since yesterday. She is less irritable today and more cooperative during interview. He claims that he is waiting on [place] to give him an intake date. He spoke about being motivated to stop drinking and also to continue on with work once he is done rehab. He states that he is having some withdrawal symptoms including "sweating all over" however is denying any tremors. His heart rate was elevated this morning. we spoke about decreasing his Librium over the course of the weekend. He appears to be more directable during conversation and more cooperative. States that he is having a fair appetite. At this time patient denies any suicidal or homical ideations, intent or plan. Patient denies any visual hallucinations and denies any paranoia or delusions. Patient denies any side effects from the medications and has been compliant with meds. Mental Status Exam: General Appearance: Patient appears to be overweight, shaved head, stated age is alert, directable, and attempts to cooperate. Patient appears to have improving hygiene and grooming. Behavior: Patient is seated without any agitated behavior. Attempts to cooperate. Speech: Patient's speech is fluent and nonpressured. Mood/Affect: Patient reports their mood is improving midlly, affect is congruent and constricted. Suicidality/Homicidality: Patient denies having any homicidal ideation intent or plan. denies any suicidal thoughts, no intent or plan. Perceptions: Patient denies any visual hallucinations admits to auditory hallucinations which are improving. Though content/process: There is no evidence of any delusional thought content and thought process is linear and goal-directed. Memory and concentration: AOX3, grossly intact for the purposes of this session Judgment and insight: poor, improving mildly IMPRESSIONS: Schizoaffective disorder Alcohol use disorder, severe dependence Plan: -Patient continues to meet criteria for inpatient psychiatric admission for symptom stabilization and safety. Patient has signed adult voluntary form and medication consent and was placed in patient's chart. -Medications: Librium decreased down to 25 mg qid for alcohol withdrawal and continue slowly decreasing over the weekend. increase Doxepin 25 mg daily at bedtime for sleep/mood. increase Paliperidone by mouth 6 mg + 6 mg qhs for psychosis/mood stabilization. -When necessary Ativan and Haldol for agitation/aggression. -thiamine, MVM for etoh use -CIWA protocol with Ativan PRN for ETOH withdrawal -NRT - nicotine patch -SW on board for discharge planning. Encouraged the patient to participate in milieu. continuing to wait on [place] to give an intake date for rehab.
[2022-06-28] MEDS ORDERED: AMOXIC-POT CLAV 875-125MG 1 EACH TAB PO SCH (14:15)
--- NOTE | 2022-06-28 14:37 | P.PN ---
Subjective Progress Note Date: 06/28/22 Patient is a 37-year-old male with a history of hypertension, nicotine dependency, alcohol abuse currently admitted to the mental health unit. Patient complains of drainage from right tympanic membrane. He reports he has been having right ear pain and drainage on and off for the last year. He describes it is purulent. He also has some oral fullness. He denies any jaw pain. He has some postnasal drip. He reports a history of tubes in his ears and multiple ear infections in the past. He is currently not following up with anybody from ENT. General: nontoxic, no distress, appears at stated age Derm: warm, dry Head: atraumatic, normocephalic, symmetric Eyes: EOMI, no lid lag, anicteric sclera Mouth: no lip lesion, membranes dry, + pharyngeal erythema Ears: Tympanic membrane on the right is absent, there is purulent drainage noted within the external auditory canal, tympanic membrane intact on the left but does appear to have loss of cone of light. No pain to palpation posterior and inferior to the ear. Psych: Alert, oriented, appropriate affect Acute versus chronic otitis media Ruptured tympanic membrane -Start cipro drop for 2 twice daily for 2 weeks. -Start Claritin and Flonase -Alert us if patient starts having worsening ear pain or headache -Outpatient follow-up with ENT. Thank you for allowing us to participate in the care of this pleasant patient. Do not hesitate to contact us with questions. Someone can be reached from the [facility] hospitalist group all hours of the day at [phone] or via perfect serve. Objective - Vital Signs Vital signs: Vital Signs Temp 97.2 F L 06/27/22 12:00 Pulse 111 H 06/28/22 07:44 Resp 20 06/28/22 07:44 BP 102/67 06/28/22 07:44 Pulse Ox 96 06/27/22 12:00 FiO2
[2022-06-28] MEDS: LORATADINE 10 MG TAB PO SCH (16:11)
[2022-06-28] MEDS: FLUTICASONE 50MCG/SPRAY NASAL 16GM EA NOSTRIL SCH (16:11)
[2022-06-28] MEDS ORDERED: DOXEPIN 25 MG CAP PO SCH (21:00)
[2022-06-28] MEDS: PALIPERIDONE 6 MG TAB.ER.24 PO SCH (21:20)
[2022-06-28] MEDS: CIPROFLOXACIN-DEXAMETH 0.3-0.1% DROPS 7.5 ML BTL RIGHT EAR SCH (21:23)
[2022-06-29] MEDS: NICOTINE GUM (POLACRILEX) 2 MG GUM BUCCAL PRN ×3 (04:55→14:26)
[2022-06-29] MEDS: NICOTINE 14MG/24HR PATCH TRANSDERM SCH (07:51)
[2022-06-29] MEDS: CIPROFLOXACIN-DEXAMETH 0.3-0.1% DROPS 7.5 ML BTL RIGHT EAR SCH ×2 (07:53→20:07)
[2022-06-29] MEDS: FLUTICASONE 50MCG/SPRAY NASAL 16GM EA NOSTRIL SCH (07:53)
[2022-06-29] MEDS: FOLIC ACID 1 MG TAB PO SCH (07:54)
[2022-06-29] MEDS: LORATADINE 10 MG TAB PO SCH (07:54)
[2022-06-29] MEDS: MULTIVITAMINS, THERA 1 EACH TAB PO SCH (07:55)
[2022-06-29] MEDS: THIAMINE 100 MG TAB PO SCH (07:55)
[2022-06-29] MEDS: PALIPERIDONE 6 MG TAB.ER.24 PO SCH ×2 (07:55→20:06)
[2022-06-29] MEDS: LORazepam 1 MG TAB PO PRN ×3 (07:57→20:08)
[2022-06-29] MEDS: chlordiazePOXIDE 25 MG CAP PO SCH ×4 (07:57→20:06)
[2022-06-29] MEDS: GABAPENTIN 300 MG CAP PO SCH ×3 (07:57→20:06)
[2022-06-29] MEDS: ACETAMINOPHEN TAB 325 MG TAB PO PRN ×2 (12:11→16:38)
[2022-06-29] MEDS ORDERED: IBUPROFEN 600 MG TAB PO STA (18:24)
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
[2022-06-29] MEDS: QUEtiapine 50 MG TAB PO SCH (20:06)
[2022-06-30] MEDS: IBUPROFEN 600 MG TAB PO PRN ×3 (07:49→21:08)
[2022-06-30] MEDS: MULTIVITAMINS, THERA 1 EACH TAB PO SCH (07:49)
[2022-06-30] MEDS: THIAMINE 100 MG TAB PO SCH (07:49)
[2022-06-30] MEDS: FOLIC ACID 1 MG TAB PO SCH (07:49)
[2022-06-30] MEDS: buPROPion XL 150 MG TAB.ER.24H PO SCH (07:50)
[2022-06-30] MEDS: LORazepam 1 MG TAB PO PRN ×3 (07:50→20:00)
[2022-06-30] MEDS: chlordiazePOXIDE 25 MG CAP PO SCH ×4 (07:50→20:00)
[2022-06-30] MEDS: LORATADINE 10 MG TAB PO SCH (07:50)
[2022-06-30] MEDS: GABAPENTIN 300 MG CAP PO SCH ×3 (07:50→20:00)
[2022-06-30] MEDS: ACETAMINOPHEN TAB 325 MG TAB PO PRN (08:53)
[2022-06-30] MEDS: NICOTINE GUM (POLACRILEX) 2 MG GUM BUCCAL PRN ×2 (08:53→13:36)
[2022-06-30] MEDS: NICOTINE 14MG/24HR PATCH TRANSDERM SCH (09:33)
[2022-06-30] MEDS: PALIPERIDONE 6 MG TAB.ER.24 PO SCH ×2 (09:34→20:00)
[2022-06-30 10:03] VITALS: RESP 16
[2022-06-30] MEDS: CIPROFLOXACIN-DEXAMETH 0.3-0.1% DROPS 7.5 ML BTL RIGHT EAR SCH ×2 (10:15→20:00)
[2022-06-30] MEDS: FLUTICASONE 50MCG/SPRAY NASAL 16GM EA NOSTRIL SCH (10:15)
[2022-06-30] MEDS: QUEtiapine 50 MG TAB PO SCH (20:00)
--- NOTE | 2022-06-30 21:55 | P.PN ---
Progress Note - Text Progress Note Date: 06/30/22 Interval history: Patient was seen attending group today and was directable and agreeable to speak with technical proposal writer. He reports his mood is "better" today and reports he slept better last nighta fter adding Seroquel last night. He denies SI/HI, intent or plan today. He continues to report mild auditory hallucinations "when I'm excited". Patient denies any side effects from the medications and has been compliant with meds. He received Ativan 6 mg total yesterday per CIWA, and 6 mg todal so far today, in addition to Librium 25 mg QID scheduled, for alcohol withdrawal. He requests an increase to his Gabapentin 600 mg TID to 800 mg TID for his anxiety and mood, states the Gabapentin helps calm him down, however we discussed I would not be increasing it today due to concern over polypharmacy. Mental status exam: General Appearance: Patient appears to be stated age, obese, dressed in black clothes. Behavior: No agitated behavior. Patient is directable and attempts to cooperate. Speech: Patient's speech is fluent and non-pressured. Mood/Affect: Mood is "better", affect is bright. Suicidality/Homicidality: Patient denies suicidal ideation and homicidal ideation, intent or plan. Perceptions: He endorses hearing voices today. Though content/process: There is no evidence of any delusional thought content and thought process is linear and goal-directed. Memory and concentration: AOX3, grossly intact for the purposes of this session Judgment and insight: improving mildly Assessment/Plan: Continue with current diagnosis. Patient continues to meet criteria for inpatient psychiatric admission for symptom stabilization and safety. Continue current medications. Monitor vital signs. Consider tapering Librium from 25 mg QID to 25 mg TID tomorrow for alcohol withdrawal. Will not increase Gabapentin dose due to polypharmacy and risk of dependence. Monitor for medication compliance and for any psychotropic medication side effects. Will continue to monitor ongoing response to treatment. Encouraged participation in milieu.
[2022-07-01] MEDS: LORazepam 1 MG TAB PO PRN (03:18)
[2022-07-01] MEDS: IBUPROFEN 600 MG TAB PO PRN (03:31)
[2022-07-01 03:37] VITALS: TEMP 97.8
[2022-07-01] MEDS: FLUTICASONE 50MCG/SPRAY NASAL 16GM EA NOSTRIL SCH (08:50)
[2022-07-01] MEDS: CIPROFLOXACIN-DEXAMETH 0.3-0.1% DROPS 7.5 ML BTL RIGHT EAR SCH (08:50)
[2022-07-01] MEDS: MULTIVITAMINS, THERA 1 EACH TAB PO SCH (08:51)
[2022-07-01] MEDS: LORATADINE 10 MG TAB PO SCH (08:51)
[2022-07-01] MEDS: GABAPENTIN 300 MG CAP PO SCH (08:52)
[2022-07-01] MEDS: THIAMINE 100 MG TAB PO SCH (08:52)
[2022-07-01] MEDS: buPROPion XL 150 MG TAB.ER.24H PO SCH (08:52)
[2022-07-01] MEDS: chlordiazePOXIDE 25 MG CAP PO SCH ×3 (08:52→12:41)
[2022-07-01] MEDS: FOLIC ACID 1 MG TAB PO SCH (08:52)
[2022-07-01] MEDS: PALIPERIDONE 6 MG TAB.ER.24 PO SCH (08:52)
[2022-07-01] MEDS: NICOTINE 14MG/24HR PATCH TRANSDERM SCH (08:52)
[2022-07-01] MEDS: ACETAMINOPHEN TAB 325 MG TAB PO PRN (08:54)
[2022-07-01] MEDS: NICOTINE GUM (POLACRILEX) 2 MG GUM BUCCAL PRN (08:58)
[2022-07-01 12:44] VITALS: BP 141/95; PULSE 101
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
== END 2022-07-01 12:45 | disposition home or self-care (01) | DRG 885 ==
LOC: EC 10:13 → 3MHU 19:42
PROVIDERS: ADMIT Psychiatry & Neurology Psychiatry; ATTEND Psychiatry & Neurology Psychiatry
DX: F25.9 Schizoaffective disorder, unspecified (principal); R45.851 Suicidal ideations; F10.239 Alcohol dependence with withdrawal, unspecified; F11.20 Opioid dependence, uncomplicated; Z68.42 Body mass index [BMI] 45.0-49.9, adult; F31.9 Bipolar disorder, unspecified; E66.01 Morbid (severe) obesity due to excess calories; F13.10 Sedative, hypnotic or anxiolytic abuse, uncomplicated; Z28.310 Unvaccinated for COVID-19; I10 Essential (primary) hypertension; G47.30 Sleep apnea, unspecified; H72.91 Unspecified perforation of tympanic membrane, right ear; S60.512A Abrasion of left hand, initial encounter; S60.511A Abrasion of right hand, initial encounter; F12.10 Cannabis abuse, uncomplicated; G47.00 Insomnia, unspecified; F41.9 Anxiety disorder, unspecified; F17.210 Nicotine dependence, cigarettes, uncomplicated; Z71.6 Tobacco abuse counseling; Z79.899 Other long term (current) drug therapy; Z59.00 Homelessness unspecified; Z71.41 Alcohol abuse counseling and surveillance of alcoholic; Z71.51 Drug abuse counseling and surveillance of drug abuser; Z81.8 Family history of other mental and behavioral disorders
CPT/HCPCS: 80306; 82075; 87635; 96372; 99285

== ENCOUNTER 2023-01-02 16:36 | Inpatient (IN) | payer MEDICAID, OTHER ==
--- NOTE | 2023-01-02 17:45 | ED ---
Psych HPI - General Chief Complaint: Psychiatric Symptoms Stated Complaint: mental health Time Seen by Provider: 01/02/23 17:10 Source: patient, RN notes reviewed, old records reviewed Mode of arrival: ambulatory - History of Present Illness Initial Comments: This is a 37-year-old male to the emergency department for evaluation patient presents today for evaluation of psychiatric illness does admit intoxication today. No travel history no sick contacts patient does does admit to hearing voices and does admit alcohol use and meth use today MD Complaint: suicidal ideation, feels depressed -: hour(s) Associated Psychiatric Symptoms: depression, suicidal ideation History of same: Yes Quality: constant Improves With: none Worsens With: none Context: recent alcohol abuse, recent drug abuse, not taking psychiatric medications, significant life stressor Associated Symptoms: denies other symptoms Treatments Prior to Arrival: placed on mental health hold If Self Harm: admits thoughts of self harm - Related Data Home Medications Medication Instructions Recorded Confirmed Albuterol Inhaler [Ventolin Hfa 1 - 2 puff INHALATION RT-Q6H PRN 01/02/23 01/02/23 Inhaler] Gabapentin 600 mg PO DIRECTED 01/02/23 01/02/23 Nicotine Gum (Polacrilex) 2 mg BUCCAL DIRECTED PRN 01/02/23 01/02/23 [Nicorette] Paliperidone [Invega] 3 mg PO DIRECTED 01/02/23 01/02/23 busPIRone HCl [Buspar] 10 mg PO DIRECTED 01/02/23 01/02/23 Allergies Allergy/AdvReac Type Severity Reaction Status Date / Time No Known Allergies Allergy Verified 01/02/23 17:20 Review of Systems ROS Statement: Those systems with pertinent positive or pertinent negative responses have been documented in the HPI. ROS Other: All systems not noted in ROS Statement are negative. Past Medical History Past Medical History: Hypertension Additional Past Medical History / Comment(s): recovering heroin addict, Psychosi s History of Any Multi-Drug Resistant Organisms: None Reported Past Surgical History: Tonsillectomy Past Anesthesia/Blood Transfusion Reactions: No Reported Reaction Past Psychological History: Anxiety, Bipolar, Depression Smoking Status: Current every day smoker Past Alcohol Use History: Daily, Heavy, Occasional Past Drug Use History: Heroin, Marijuana, Methamphetamine - Past Family History Mother Family Medical History: Diabetes Mellitus Father Family Medical History: Coronary Artery Disease (CAD) family Family Medical History: Unable to Obtain General Exam General appearance: alert, in no apparent distress Head exam: Present: atraumatic, normocephalic, normal inspection Eye exam: Present: normal appearance, PERRL, EOMI. Absent: scleral icterus, conjunctival injection, periorbital swelling ENT exam: Present: normal exam, mucous membranes moist Neck exam: Present: normal inspection. Absent: tenderness, meningismus, lymphadenopathy Respiratory exam: Present: normal lung sounds bilaterally. Absent: respiratory distress, wheezes, rales, rhonchi, stridor Cardiovascular Exam: Present: regular rate, normal rhythm, normal heart sounds. Absent: systolic murmur, diastolic murmur, rubs, gallop, clicks GI/Abdominal exam: Present: soft, normal bowel sounds. Absent: distended, tenderness, guarding, rebound, rigid Extremities exam: Present: normal inspection, full ROM, normal capillary refill. Absent: tenderness, pedal edema, joint swelling, calf tenderness Back exam: Present: normal inspection Neurological exam: Present: alert, oriented X3, CN II-XII intact Psychiatric exam: Present: normal affect, normal mood Skin exam: Present: warm, dry, intact, normal color. Absent: rash Course Vital Signs 01/02/23 16:59 Temperature 97.8 F Pulse Rate 81 Respiratory 18 Rate Blood Pressure 105/56 O2 Sat by Pulse 92 L Oximetry - Reevaluation(s) Reevaluation #1: 01/02/23 17:44 Medical records reviewed Reevaluation #2: 01/02/23 17:44 Medically clear for psychiatric evaluation Medical Decision Making - Medical Decision Making 37 male will be admitted for psychiatric evaluation and treatment - Lab Data Lab Results 01/02/23 Range/Units 22:30 Coronavirus (PCR) Not Detected (Not Detectd) Disposition Clinical Impression: Suicidal ideation, Drug overdose, Schizoaffective disorder, Depressive disorder, Alcohol intoxication, Major depressive disorder, recurrent severe without psychotic features, Suicide attempt Disposition: TRANSFER TO PSYCH HOSP/UNIT Condition: Fair Is patient prescribed a controlled substance at d/c from ED?: No
[2023-01-02] MEDS ORDERED: OLANZapine 5 MG TAB PO PRN (23:58)
[2023-01-02] MEDS ORDERED: hydrOXYzine HCL 50 MG/ML 1 ML VIAL IM PRN (23:58)
[2023-01-02] MEDS ORDERED: IBUPROFEN 600 MG TAB PO PRN (23:58)
[2023-01-02] MEDS ORDERED: OLANZapine 10 MG VIAL IM PRN (23:58)
[2023-01-02] MEDS ORDERED: MAG HYDROX/AL HYDROX/SIMETH 30 ML CUP PO PRN (23:58)
[2023-01-02] MEDS ORDERED: traZODone HCL 50 MG TAB PO PRN (23:58)
[2023-01-02] MEDS ORDERED: MAGNESIUM HYDROXIDE 2,400 MG/10 ML CUP PO PRN (23:58)
[2023-01-03] MEDS ORDERED: ALBUTEROL NEBULIZED 2.5 MG/3 ML INHALATION PRN (00:03)
[2023-01-03] MEDS ORDERED: LOPERAMIDE 2 MG CAP PO PRN (00:03)
[2023-01-03] MEDS ORDERED: PALIPERIDONE 3 MG TAB.ER.24 PO SCH (00:30)
[2023-01-03] MEDS: busPIRone HCl 10 MG TAB PO SCH ×2 (00:57→09:31)
[2023-01-03] MEDS: hydrOXYzine HCL 25 MG TAB PO PRN (00:57)
[2023-01-03] MEDS: NICOTINE 14MG/24HR PATCH TRANSDERM SCH (09:31)
[2023-01-03] MEDS: GABAPENTIN 300 MG CAP PO SCH ×3 (09:31→21:09)
[2023-01-03] MEDS ORDERED: DICYCLOMINE 20 MG TAB PO PRN (12:12)
[2023-01-03] MEDS ORDERED: cloNIDine HCL 0.1 MG TAB PO PRN (12:12)
[2023-01-03] MEDS ORDERED: LORazepam 1 MG TAB PO PRN (12:20)
[2023-01-03] MEDS: PALIPERIDONE 3 MG TAB.ER.24 PO SCH (13:14)
[2023-01-03] MEDS: LORazepam 1 MG TAB PO PRN (13:14)
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
[2023-01-03] MEDS: busPIRone HCl 5 MG TAB PO SCH ×2 (17:41→21:08)
[2023-01-03] MEDS ORDERED: QUEtiapine 50 MG TAB PO SCH (21:00)
--- NOTE | 2023-01-04 02:18 | P.MDCNMH ---
History of Present Illness H&P Date: 01/03/23 Chief Complaint: medical eval 37 year old male denies any past medical history patient is sleepy and provides very limited history, patient presented for psych evaluation , ED note indicates patient was suicidal , with intoxication due to alcohol abuse he denies any fever, chills, cough, sore throat, chest pain , trouble breathing , nausea , vomiting, abd pain , changes in urinary or bowel habits. he admits tobacco smoking, he denies drugs and alcohol Review of Systems Pertinent positives as noted in HPI. All other systems were reviewed and are negative Past Medical History Past Medical History: Hypertension Additional Past Medical History / Comment(s): recovering heroin addict, Psychosis History of Any Multi-Drug Resistant Organisms: None Reported Past Surgical History: Tonsillectomy Past Anesthesia/Blood Transfusion Reactions: No Reported Reaction Past Psychological History: Anxiety, Bipolar, Depression Smoking Status: Current every day smoker Past Alcohol Use History: Daily, Heavy, Occasional Past Drug Use History: Heroin, Marijuana, Methamphetamine - Past Family History Mother Family Medical History: Diabetes Mellitus Father Family Medical History: Coronary Artery Disease (CAD) family Family Medical History: Unable to Obtain Medications and Allergies Home Medications Medication Instructions Recorded Confirmed Type Albuterol Inhaler [Ventolin Hfa 1 - 2 puff INHALATION RT-Q6H PRN 01/02/23 01/02/23 History Inhaler] Gabapentin 600 mg PO DIRECTED 01/02/23 01/02/23 History Nicotine Gum (Polacrilex) 2 mg BUCCAL DIRECTED PRN 01/02/23 01/02/23 History [Nicorette] Paliperidone [Invega] 3 mg PO DIRECTED 01/02/23 01/02/23 History busPIRone HCl [Buspar] 10 mg PO DIRECTED 01/02/23 01/02/23 History Allergies Allergy/AdvReac Type Severity Reaction Status Date / Time No Known Allergies Allergy Verified 01/02/23 17:20 Physical Exam Constitutional: No acute distress , sleepy , not interested in the int erview Eyes: Anicteric sclerae, moist conjunctiva, Pupils equal round reactive to light Neck: Supple, no masses, or JVD Lungs: Clear to auscultation Clear to percussion Normal respiratory effort, no accessory muscle use Cardiovascular: Heart regular in rate and rhythm, No murmurs, gallops, or rubs No peripheral edema Abdominal: Soft Nontender, no guarding, rebound or rigidity Abdomen moving with respiration Normoactive bowel sounds Skin: Normal temperature, tone, texture, turgor Extremities: No digital cyanosis No clubbing Pedal pulses intact and symmetrical Radial pulses intact and symmetrical No calf tenderness Psychiatric: sleepy , oriented to self and place Neuro Muscles Strength 5/5 in all 4 extremities Sensation to light touch grossly present throughout Cranial Nerve Examination - Cranial Nerves Cranial Nerve II- Optic: Intact Cranial Nerve III- Oculomotor: Intact Cranial Nerve IV- Trochlear: Intact Cranial Nerve V- Trigeminal: Intact Cranial Nerve - Abducens: Intact Cranial Nerve VII- Facial: Intact Cranial Nerve VIII- Auditory: Intact Cranial Nerve IX- Glossopharyngeal: Intact Cranial Nerve X- Vagus: Intact Cranial Nerve XI- Accessory: Intact Cranial Nerve XII- Hypoglossal: Intact Assessment and Plan Assessment: depression and suicidal ideation management per psych tobacco smoking NRT offered counseled to quit smokin g follow up blood work , not available at this time thank you for this consultation
[2023-01-04] MEDS: NICOTINE 14MG/24HR PATCH TRANSDERM SCH (08:28)
[2023-01-04] MEDS: LORazepam 1 MG TAB PO PRN ×2 (08:30→21:04)
[2023-01-04] MEDS: busPIRone HCl 5 MG TAB PO SCH ×3 (08:30→21:04)
[2023-01-04] MEDS: GABAPENTIN 300 MG CAP PO SCH ×3 (08:30→21:03)
[2023-01-04] MEDS: PALIPERIDONE 3 MG TAB.ER.24 PO SCH (08:30)
[2023-01-04] MEDS ORDERED: ONDANSETRON 4 MG TAB PO PRN (10:25)
[2023-01-04 10:33] LABS: Basophils % (A) 0 %; Eosinophils # (A) 0.4 k/uL (0-0.7); Eosinophils % (A) 4 %; HCT 42.9 % (39.0-53.0); Lymphocytes # (A) 1.4 k/uL (1.0-4.8); Lymphocytes % (A) 13 %; MCH 28.6 pg (25.0-35.0); MCHC 32.7 g/dL (31.0-37.0); MCV 87.2 fL (80.0-100.0); Mean Platelet Volume 8.4; Monocytes # (A) 0.4 k/uL (0-1.0); Monocytes % (A) 4 %; Neutrophils # (A) 7.8 k/uL (1.3-7.7); Neutrophils % (A) 77 %; Platelet Count 236 k/uL (150-450); RBC 4.92 m/uL (4.30-5.90); RDW 14.2 % (11.5-15.5); WBC 10.2 k/uL (3.8-10.6)
[2023-01-04 10:44] LABS: ALT 28 U/L (4-49); AST 21 U/L (17-59); African American GFR (CKD) >90 (>60 ml/min/1.73 sqM); Albumin 3.2 g/dL (3.5-5.0); Alkaline Phosphatase 58 U/L (38-126); Anion Gap 9 mmol/L; Bilirubin, Delta 0.2 mg/dL (0.0-0.2); Bilirubin,Unconjugated 0.3 mg/dL (0.0-1.1); Blood Urea Nitrogen 7 mg/dL (9-20); Calcium 8.8 mg/dL (8.4-10.2); Carbon Dioxide 28 mmol/L (22-30); Chloride 102 mmol/L (98-107); Glucose 140 mg/dL (74-99); Non-African American GFR(CKD) >90 (>60 ml/min/1.73 sqM); Potassium 3.9 mmol/L (3.5-5.1); Sodium 139 mmol/L (137-145); Total Bilirubin 0.5 mg/dL (0.2-1.3); Total Protein 6.2 g/dL (6.3-8.2)
--- NOTE | 2023-01-04 13:18 | P.PN ---
Progress Note - Text Progress Note Date: 01/04/23 Interval History: Patient was seen bedside. Patient was somnolent and said that he had trouble sleeping the night before. He expressed mild nausea to the nursing staff for which Zofran was ordered when necessary. He currently denies nausea and denies any episodes of emesis. He was noted to be irritable but otherwise denied withdrawal symptoms currently. He admits that his use of substances places him at higher health risk. He expresses superficial interest and vaguely agrees to look into Suboxone or methadone prescribers. He also does not express an interest in rehab. At this time patient denies any suicidal or homicidal ideation, intent or plan. Patient denies any auditory, visual hallucinations and denies any paranoia or delusions. Patient denies any side effects from the medications and has been compliant with meds. Mental Status Exam: General Appearance: Patient appears to be overweight, disheveled hair, stated age is mildly lethargic, directable, and attempts to cooperate however is argumentative at times. Patient appears to have poor hygiene and grooming. Behavior: Patient is seated without any agitated behavior. Manipulative. Speech: Patient's speech is fluent and nonpressured. Mood/Affect: Patient reports their mood is irritable, affect is congruent and constricted. Suicidality/Homicidality: Patient denies having any homicidal ideation intent or plan. Denies suicidal ideation currently Perceptions: Patient denies any visual hallucinations admits to auditory hallucinations. Though content/process: There is no evidence of any delusional thought content and thought process is linear and goal-directed. Focused on his medications Memory and concentration: AOX3, grossly intact for the purposes of this session. Judgment and insight: poor Assessment Schizoaffective disorder Alcohol use disorder, severe dependence Opioid use disorder Nicotine dependence Methamphetamine abuse Personality disorder unspecified, likely antisocial PLAN: -Patient is admitted under voluntary status to MHU for stabilization of psychiat leida symptoms and safety. Patient has signed adult voluntary form and medication consent and is placed in patient's chart. -Medications : Librium 10 mg 3 times a day today and reduced to 10 mg twice a day tomorrow. Paliperidone by mouth 3 mg daily for psychosis/mood stabilization. Increase seroquel to 100 mg qhs for insomnia/mood stabilization. will avoid methadone and suboxone taper at this time and continue with prns for withdrawal sx including clonidine, lopramide, vistaril dicyclomine. buspar 15 mg tid for anxiety. -Ativan vistaril and zyprexa PRN for agitation/aggression -Started thiamine, MVM for etoh use -CIWA protocol with Ativan PRN for ETOH withdrawal -Patient was counselled on substance abuse and desired to cut back on use and claims that he wants to go to rehab. -Patient was informed of the risks, benefits and side effects of the medication and patient verbally consented to taking the medications. Patient signed med consent form and was placed in chart. -Internal Medicine consult to perform medical evaluation and physical. -NRT - nicotine patch -SW on board for discharge planning. Encourage patient to participate in groups to work on coping skills. patient is interested in rehab
[2023-01-04] MEDS: ACETAMINOPHEN TAB 325 MG TAB PO PRN (16:33)
[2023-01-04] MEDS: QUEtiapine 50 MG TAB PO SCH (21:03)
[2023-01-05] MEDS: NICOTINE 14MG/24HR PATCH TRANSDERM SCH (09:44)
[2023-01-05] MEDS: busPIRone HCl 5 MG TAB PO SCH ×3 (09:44→20:39)
[2023-01-05] MEDS: PALIPERIDONE 3 MG TAB.ER.24 PO SCH (09:45)
[2023-01-05] MEDS: GABAPENTIN 300 MG CAP PO SCH ×3 (09:45→20:40)
[2023-01-05 10:37] LABS: Chol/HDL Ratio 5.21 Ratio; LDL Cholesterol,Calculated 104.1 mg/dL (0.0-131.0)
--- NOTE | 2023-01-05 13:47 | P.PN ---
Progress Note - Text Progress Note Date: 01/05/23 Interval History: Patient was seen bedside. Patient was somnolent but says that he slept well last night. He feels that this current dose of Seroquel has been helpful. He denies nausea today. Patient reports having tremulousness but this was not noted on exam. He denies other withdrawal symptoms today. Patient continues to have poor insight into his substance use leading to worsened mental health. He states that he is not interested in rehab. He asks about the medication that is currently on board for anxiety and his medications were discussed with him. He received Ativan 1 mg PRN last night. At this time patient denies any suicidal or homicidal ideation, intent or plan. Patient denies any auditory, visual hallucinations and denies any paranoia or delusions. Patient denies any side effects from the medications and has been compliant with meds. Mental Status Exam: General Appearance: Patient appears to be overweight, disheveled hair, stated age is mildly lethargic, directable, and attempts to cooperate however is argumentative at times. Patient appears to have poor hygiene and grooming. Behavior: Patient is seated without any agitated behavior. Manipulative. Speech: Patient's speech is fluent and nonpressured. Mood/Affect: Patient reports their mood is irritable, affect is congruent and constricted. Suicidality/Homicidality: Patient denies having any homicidal ideation intent or plan. Denies suicidal ideation currently Perceptions: Patient denies any visual hallucinations admits to auditory hallucinations. Though content/process: There is no evidence of any delusional thought content and thought process is linear and goal-directed. Focused on his medications Memory and concentration: AOX3, grossly intact for the purposes of this session. Judgment and insight: poor Assessment Schizoaffective disorder Alcohol use disorder, severe dependence Opioid use disorder Nicotine dependence Methamphetamine abuse Personality disorder unspecified, likely antisocial PLAN: -Patient is admitted under voluntary status to MHU for stabilization of psychiatric symptoms and safety. Patient has signed adult voluntary form and medication consent and is placed in patient's chart. -Medications : Librium 10 mg 3 times a day today and reduced to 10 mg twice a day tomorrow. Increase Paliperidone by mouth to 6 mg daily for psychosis/mood stabilization. Continue seroquel to 100 mg qhs for insomnia/mood stabilization. will avoid methadone and suboxone taper at this time and continue with prns for withdrawal sx including clonidine, lopramide, vistaril dicyclomine. buspar 15 mg tid for anxiety. -Ativan vistaril and zyprexa PRN for agitation/aggression -thiamine for etoh use -CIWA protocol with Ativan PRN for ETOH withdrawal -Patient was counselled on substance abuse and desired to cut back on use and claims that he wants to go to rehab. -Patient was informed of the risks, benefits and side effects of the medication and patient verbally consented to taking the medications. Patient signed med consent form and was placed in chart. -Internal Medicine consult to perform medical evaluation and physical. -NRT - nicotine patch -SW on board for discharge planning. Encourage patient to participate in groups to work on coping skills. patient is not interested in rehab
[2023-01-05 16:08] LABS: Appearance,Urine Clear (Clear); Bilirubin,Urine Negative (Negative); Blood,Urine Negative (Negative); Color,Urine Yellow; Glucose,Urine (UA) Negative (Negative); Ketones,Urine Negative (Negative); Leukocyte Esterase,Urine Negative (Negative); Nitrite,Urine Negative (Negative); PH, Urine 7.5 (5.0-8.0); Protein,Urine Negative (Negative); Specific Gravity,Urine 1.012 (1.001-1.035); Urobilinogen,Urine <2.0 mg/dL (<2.0)
[2023-01-05 16:29] LABS: Amphetamine Screen,Urine Detected (NotDetected); Barbiturate Screen,Urine Not Detected (NotDetected); Benzodiazepines Screen,Urine Detected (NotDetected); Cocaine Screen,Urine Not Detected (NotDetected); Methadone Screen, Urine Not Detected (NotDetected); Opiate Screen,Urine Not Detected (NotDetected); Oxycodone Screen, Urine Not Detected (NotDetected); Phencyclidine Screen,Urine Not Detected (NotDetected); Tricyclic Antidepressant,Urine Detected (NotDetected); Urn Cannabinoid Scrn Not Detected (NotDetected)
[2023-01-05] MEDS: QUEtiapine 50 MG TAB PO SCH (20:39)
[2023-01-05] MEDS: LORazepam 1 MG TAB PO PRN (20:41)
[2023-01-05] MEDS: hydrOXYzine HCL 25 MG TAB PO PRN (21:37)
[2023-01-06] MEDS: NICOTINE 14MG/24HR PATCH TRANSDERM SCH (10:02)
[2023-01-06] MEDS: GABAPENTIN 300 MG CAP PO SCH ×3 (10:02→19:58)
[2023-01-06] MEDS: PALIPERIDONE 3 MG TAB.ER.24 PO SCH (10:02)
[2023-01-06] MEDS: THIAMINE 100 MG TAB PO SCH (10:03)
[2023-01-06] MEDS: busPIRone HCl 5 MG TAB PO SCH (10:36)
[2023-01-06 11:00] VITALS: BP 142/80; PULSE 90; RESP 17; TEMP 97.9
[2023-01-06] MEDS: LORazepam 1 MG TAB PO PRN ×2 (12:11→19:57)
--- NOTE | 2023-01-06 14:36 | P.PN ---
Progress Note - Text Progress Note Date: 01/06/23 Interval History: Patient was seen lying in bed this morning and was directable and agreeable to speak with comic book writer in the office. Patient continues to state that he is having withdrawal symptoms however is fairly vague about it. He claims that his main issue at this time is anxiety. He states that he is still going through opiate withdrawal and continues to be focused on controlled medications. He states that he is having an improvement in his affect and also his outlook on being discharged. He states that she will possibly going back to his mother's place and states that "I might want to do rehab after that". He states that the voices have been improving on the current medication, states that he is not sleeping well at nighttime. We spoke about decreasing the Librium which she was okay with. At this time patient denies any homical ideations, intent or plan. Continues to have mild suicidal thoughts, no intent or plan Patient denies any auditory, visual hallucinations and denies any paranoia or delusions. Patient denies any side effects from the medications and has been compliant with meds. Mental Status Exam: General Appearance: Patient appears to be overweight, disheveled hair, stated age is mildly lethargic, directable, and attempts to cooperate. Superficial and vague. Patient appears to have poor hygiene and grooming. Behavior: Patient is seated without any agitated behavior. Manipulative. Improving mildly Speech: Patient's speech is fluent and nonpressured. Mood/Affect: Patient reports their mood is depressed and anxious, improving, affect is congruent Suicidality/Homicidality: Patient denies having any homicidal ideation intent or plan. Admits to suicidal thoughts, no intent or plan. Perceptions: Patient denies any visual hallucinations admits to auditory hallucinations. Though content/process: There is no evidence of any delusional thought content and thought process is linear and goal-directed. Focused on his medications and obtaining controlled medications. Memory and concentration: AOX3, grossly intact for the purposes of this session. Judgment and insight: poor/superficial., Improving mildly IMPRESSIONS: Schizoaffective disorder Alcohol use disorder, severe dependence Opioid use disorder Nicotine dependence Methamphetamine abuse Personality disorder unspecified, likely antisocial PLAN: -Patient is admitted under voluntary status to MHU for stabilization of psychiatric symptoms and safety. Patient has signed adult voluntary form and medication consent and is placed in patient's chart. -Medications : last Librium scheduled for tonight then discontinue for alcohol withdrawal. Paliperidone by mouth 6 mg daily for psychosis/mood stabilization. increase seroquel 150 mg qhs for insomnia/mood stabilization. continue with prns for withdrawal sx incuidng clonidine, lopramide, vistaril dicyclomine. increase buspar 20 mg tid for anxiety. -Ativan vistaril and zyprexa PRN for agitation/aggression -thiamine, MVM for etoh use -NRT - nicotine patch -SW on board for discharge planning. Encourage patient to participate in groups to work on coping skills. patient is not interested in going directly to rehab and would like to go home with mother upon discharge. likely d/c in 1-2 days
[2023-01-06] MEDS: busPIRone HCl 10 MG TAB PO SCH ×2 (16:31→19:58)
[2023-01-06] MEDS: ACETAMINOPHEN TAB 325 MG TAB PO PRN (19:57)
[2023-01-06] MEDS ORDERED: QUEtiapine 100 MG TAB PO SCH (21:00)
[2023-01-07] MEDS: NICOTINE 14MG/24HR PATCH TRANSDERM SCH (09:09)
[2023-01-07] MEDS: GABAPENTIN 300 MG CAP PO SCH (09:09)
[2023-01-07] MEDS: busPIRone HCl 10 MG TAB PO SCH (09:09)
[2023-01-07] MEDS: PALIPERIDONE 3 MG TAB.ER.24 PO SCH (09:10)
[2023-01-07] MEDS: THIAMINE 100 MG TAB PO SCH (09:10)
--- NOTE | 2023-01-07 11:18 | P.DS ---
Providers Date of admission: 01/02/23 23:53 Expected date of discharge: 01/07/23 Attending physician: Toy Alberto MD Consults: 01/02/23 23:58 Consult Physician Routine Consulting Provider: Lucas Desouza Consult Reason/Comments: medical H&P Do you want consulting provider notified?: Yes Primary care physician: Stated None - Discharge Diagnosis(es) (1) Schizoaffective disorder Current Visit: Yes Status: Acute Priority: High (2) Alcohol use disorder, severe, dependence Current Visit: Yes Status: Acute Priority: High (3) Opioid use disorder Current Visit: Yes Status: Acute Priority: High (4) Nicotine dependence Current Visit: Yes Status: Acute Priority: Low (5) Methamphetamine abuse Current Visit: Yes Status: Acute Priority: Medium (6) Personality disorder Current Visit: Yes Status: Acute Priority: Medium Hospital Course: Admission HPI: Admission note was completed by manual writer "Patient is a 37-year-old male, currently homeless, unemployed. Patient presented to the hospital yesterday complaining of depression, suicidal ideations, auditory hallucinations and intoxication with methamphetamine and alcohol. Patient has a history of several inpatient mental health admissions, last admitted in June 2022. Patient was admitted voluntarily to the mental health unit and seen today in his room. He is agreeable to speak to manual writer at the in the office. Patient claims that he has been dealing with several stressors recently including being "broke" having financial difficulties, loss of his girlfriend recently as they've broken up. He claims that he has also been using significant amount of heroin about 1 g a day has been snorting it. States that he is also drinking alcohol more lately. He claims that he is starting to go through withdrawal from both and states that he is having "hot flashes and weakness" and also endorsed feeling tired. He states that he has been feeling significantly depressed and anxious lately. Claims that he was having several suicidal thoughts of different plans however did not speak of them. Claims that his sleep is poor, appetite is fair. He continues to state that he does have suicidal thoughts however no intent or plan. Denies any homicidal ideations. He claims that he does hear voices being "negative and saying insecurities" and also having conversations. denies any visual hallucinations. Patient denies any flight of ideas racing thoughts and increased in goal directed behavior. Patient admits to using alcohol drinks about fifth vodkla/day. using meth about 0.5 gm day smoking it. He claims that he is also snorting heroin about 1gm daily. cigarettes daily." Hospital course: Upon admission to the unit patient was directable and agreeable to commence treatment and signed adult voluntary form. Patient got along well with other patients on the unit and followed unit protocol. Patient mainly kept to himself most of the hospitalization and went through withdrawal from opiates and also alcohol. Patient was compliant with the medications and denied any side effects throughout hospital course. Patient was started on Librium scheduled and was gradually tapered down/discontinued for alcohol withdrawal, patient was restarted back on by mouth paliperidone 6 mg daily for psychosis/mood stabilization, Seroquel 100 mg daily at bedtime for insomnia/psychosis/mood stabilization, BuSpar 20 mg 3 times a day for anxiety. Patient was also placed on CIWA protocol with when necessary Ativan and also when necessary clonidine and loperamide Vistaril and also dicyclomine for opiate withdrawal. Patient spoke of his stressors and engaged in therapy both group and individual. Patient was also seen by medical team for history and physical exam. Throughout the course of the hospitalization patient gradually improved with regards to mood, anxiety, withdrawal symptoms, hallucinations and suicidal thoughts, sleep and returned back to their baseline level of functioning. On the day of discharge patient denied any suicidal or homicidal ideations intent or plan denied any auditory or visual hallucinations. Patient endorsed wanting to live for his health and family. The patient denied any access to guns or weapons. Patient denied any paranoia and did not endorse any delusions. Patient does have a significant history of substance abuse and was counseled on abstaining from all substances including alcohol and marijuana. Patient was offered however declined inpatient substance-abuse rehab. Patient elected to do outpatient substance use treatment program through [facility]. Patient was also counseled on the medications and need for regular compliance and was encouraged to follow-up with their outpatient appointment for mental health and also for primary care. Prior to discharge a family meeting will be arranged by nephrology social worker to answer any questions and ensure safety upon discharge. Mental status exam: General Appearance: Patient appears to be overweight, stated age is alert, pleasant, and cooperative. Patient is in no acute distress and has improved hygiene and grooming Behavior: Patient is calmly seated without any agitated behavior. Speech: Patient's speech is fluent and nonpressured. Mood/Affect: Patient reports their mood is "good", affect is congruent Suicidality/Homicidality: Patient denies having any suicidal or homicidal ideation intent or plan. Perceptions: Patient denies any auditory or visual hallucinations. Though content/process: There is no evidence of any delusional thought content and thought process is linear and goal-directed. Memory and concentration: AOX3, grossly intact for the purposes of this session. Can spell "WORLD" backwards correctly. Judgment and insight: chronically poor, however has improved with guarded prognosis Impression: Schizoaffective disorder Alcohol use disorder severe dependence Opioid use disorder Methamphetamine abuse Personality disorder unspecified likely antisocial personality disorder Nicotine dependence Plan: -Continue with discharge today as patient has improved and stabilized psychiatrically and is not currently an imminent threat to himself and/or others. Patient will remain at chronically elevated risk for harm to self and/or others due to his impulsivity and polysubstance abuse. -Continue medications: BuSpar 20 mg 3 times a day when necessary for anxiety, paliperidone by mouth 6 mg daily for psychosis/mood stabilization, Seroquel 100 mg daily at bedtime for insomnia/psychosis/mood stabilization -Patient was counseled on the need for medication compliance and appropriate follow-up at mental health and also primary care for medical issues. Patient verbalized understanding and agreed. -Social work to arrange for and conduct family meeting to ensure safety upon discharge and answer any questions/concerns. Social work also to arrange for patients follow up appointments with [facility] for psychiatric care along with follow up with primary care provider. -Patient counseled on abstaining from recreational drugs and marijuana and alcohol. Was informed/educated on the adverse effects on their physical and mental health. Patient verbally agreed and understood. Patient was offered substance abuse treatment however declined at this time. -Patient was instructed to return to the hospital or seek immediate medical care if their psychiatric or medical symptoms do worsen or reoccur. Allergies Allergy/AdvReac Type Severity Reaction Status Date / Time No Known Allergies Allergy Verified 01/02/23 17:20 Laboratory Results WBC 10.2 k/uL (3.8-10.6) 01/04/23 10:02 RBC 4.92 m/uL (4.30-5.90) 01/04/23 10:02 Hgb 14.0 gm/dL (13.0-17.5) 01/04/23 10:02 Hct 42.9 % (39.0-53.0) 01/04/23 10:02 MCV 87.2 fL (80.0-100.0) 01/04/23 10:02 MCH 28.6 pg (25.0-35.0) 01/04/23 10:02 MCHC 32.7 g/dL (31.0-37.0) 01/04/23 10:02 RDW 14.2 % (11.5-15.5) 01/04/23 10:02 Plt Count 236 k/uL (150-450) 01/04/23 10:02 MPV 8.4 01/04/23 10:02 Neutrophils % 77 % 01/04/23 10:02 Lymphocytes % 13 % 01/04/23 10:02 Monocytes % 4 % 01/04/23 10:02 Eosinophils % 4 % 01/04/23 10:02 Basophils % 0 % 01/04/23 10:02 Neutrophils # 7.8 k/uL (1.3-7.7) H 01/04/23 10:02 Lymphocytes # 1.4 k/uL (1.0-4.8) 01/04/23 10:02 Monocytes # 0.4 k/uL (0-1.0) 01/04/23 10:02 Eosinophils # 0.4 k/uL (0-0.7) 01/04/23 10:02 Basophils # 0.0 k/uL (0-0.2) 01/04/23 10:02 Sodium 139 mmol/L (137-145) 01/04/23 10:02 Potassium 3.9 mmol/L (3.5-5.1) 01/04/23 10:02 Chloride 102 mmol/L (98-107) 01/04/23 10:02 Carbon Dioxide 28 mmol/L (22-30) 01/04/23 10:02 Anion Gap 9 mmol/L 01/04/23 10:02 BUN 7 mg/dL (9-20) L 01/04/23 10:02 Creatinine 0.82 mg/dL (0.66-1.25) 01/04/23 10:02 Est GFR (CKD-EPI)AfAm >90 (>60 ml/min/1.73 sqM) 01/04/23 10:02 Est GFR (CKD-EPI)NonAf >90 (>60 ml/min/1.73 sqM) 01/04/23 10:02 Glucose 140 mg/dL (74-99) H 01/04/23 10:02 Calcium 8.8 mg/dL (8.4-10.2) 01/04/23 10:02 Total Bilirubin 0.5 mg/dL (0.2-1.3) 01/04/23 10:02 Conjugated Bilirubin 0.0 mg/dL (0.0-0.3) 01/04/23 10:02 Unconjugated Bilirubin 0.3 mg/dL (0.0-1.1) 01/04/23 10:02 Delta Bilirubin 0.2 mg/dL (0.0-0.2) 01/04/23 10:02 AST 21 U/L (17-59) 01/04/23 10:02 ALT 28 U/L (4-49) 01/04/23 10:02 Alkaline Phosphatase 58 U/L (38-126) 01/04/23 10:02 Total Protein 6.2 g/dL (6.3-8.2) L 01/04/23 10:02 Albumin 3.2 g/dL (3.5-5.0) L 01/04/23 10:02 Triglycerides 142.00 mg/dL (0.00-149.00) 01/04/23 10:02 Cholesterol 164.00 mg/dL (0.00-200.00) 01/04/23 10:02 LDL Cholesterol, Calc 104.1 mg/dL (0.0-131.0) 01/04/23 10:02 VLDL Cholesterol, Calc 28.40 mg/dL (5.00-40.00) 01/04/23 10:02 HDL Cholesterol 31.50 mg/dL (40.00-60.00) L 01/04/23 10:02 Cholesterol/HDL Ratio 5.21 Ratio 01/04/23 10:02 TSH 0.990 mIU/L (0.465-4.680) 01/04/23 10:02 Urine Color Yellow 01/05/23 15:48 Urine Appearance Clear (Clear) 01/05/23 15:48 Urine pH 7.5 (5.0-8.0) 01/05/23 15:48 Ur Specific [place] 1.012 (1.001-1.035) 01/05/23 15:48 Urine Protein Negative (Negative) 01/05/23 15:48 Urine Glucose (UA) Negative (Negative) 01/05/23 15:48 Urine Ketones Negative (Negative) 01/05/23 15:48 Urine Blood Negative (Negative) 01/05/23 15:48 Urine Nitrite Negative (Negative) 01/05/23 15:48 Urine Bilirubin Negative (Negative) 01/05/23 15:48 Urine Urobilinogen <2.0 mg/dL (<2.0) 01/05/23 15:48 Ur Leukocyte Esterase Negative (Negative) 01/05/23 15:48 Urine Opiates Screen Not Detected (NotDetected) 01/05/23 15:48 Ur Oxycodone Screen Not Detected (NotDetected) 01/05/23 15:48 Urine Methadone Screen Not Detected (NotDetected) 01/05/23 15:48 Ur Propoxyphene Screen Not Detected (NotDetected) 01/05/23 15:48 Ur Barbiturates Screen Not Detected (NotDetected) 01/05/23 15:48 U Tricyclic Antidepress Detected (NotDetected) H 01/05/23 15:48 Ur Phencyclidine Scrn Not Detected (NotDetected) 01/05/23 15:48 Ur Amphetamines Screen Detected (NotDetected) H 01/05/23 15:48 U Methamphetamines Scrn Not Detected (NotDetected) 01/05/23 15:48 U Benzodiazepines Scrn Detected (NotDetected) H 01/05/23 15:48 Urine Cocaine Screen Not Detected (NotDetected) 01/05/23 15:48 U Marijuana (THC) Screen Not Detected (NotDetected) 01/05/23 15:48 Coronavirus (PCR) Not Detected (Not Detectd) 01/02/23 22:30 Vital Signs Temp 97.9 F 01/06/23 10:59 Pulse 90 01/06/23 10:59 Resp 17 01/06/23 10:59 BP 142/80 01/06/23 10:59 Pulse Ox 97 01/06/23 10:59 FiO2 Patient Condition at Discharge: Fair Plan - Discharge Summary Discharge Rx Participant: Yes New Discharge Prescriptions: New Nicotine 14Mg/24Hr Patch [Habitrol] 1 patch TRANSDERM DAILY 14 Days #14 patch Paliperidone [Invega] 6 mg PO DAILY 30 Days #30 tab QUEtiapine [SEROquel] 100 mg PO HS 30 Days #30 tab Acetaminophen Tab [Tylenol] 650 mg PO Q4HR PRN tab PRN Reason: Mild Pain (Scale 1 To 3) Thiamine [Vitamin B-1] 100 mg PO DAILY tab busPIRone HCl [Buspar] 20 mg PO TID PRN 30 Days #180 tab PRN Reason: Anxiety Continue Albuterol Inhaler [Ventolin Hfa Inhaler] 1 - 2 puff INHALATION RT-Q6H PRN PRN Reason: Shortness Of Breath Changed Gabapentin 600 mg PO TID 3 Days #9 tab Discontinued Nicotine Gum (Polacrilex) [Nicorette] 2 mg BUCCAL DIRECTED PRN PRN Reason: Nicotine Cravings busPIRone HCl [Buspar] 10 mg PO DIRECTED Paliperidone [Invega] 3 mg PO DIRECTED Discharge Medication List Albuterol Inhaler [Ventolin Hfa Inhaler] 1 - 2 puff INHALATION RT-Q6H PRN 01/02/23 [History] Acetaminophen Tab [Tylenol] 650 mg PO Q4HR PRN tab 01/07/23 [Rx] Gabapentin 600 mg PO TID 3 Days #9 tab 01/07/23 [Rx] Nicotine 14Mg/24Hr Patch [Habitrol] 1 patch TRANSDERM DAILY 14 Days #14 patch 01/07/23 [Rx] Paliperidone [Invega] 6 mg PO DAILY 30 Days #30 tab 01/07/23 [Rx] QUEtiapine [SEROquel] 100 mg PO HS 30 Days #30 tab 01/07/23 [Rx] Thiamine [Vitamin B-1] 100 mg PO DAILY tab 01/07/23 [Rx] busPIRone HCl [Buspar] 20 mg PO TID PRN 30 Days #180 tab 01/07/23 [Rx] Follow up Appointment(s)/Referral(s): None,Stated [Primary Care Provider] - 1-2 days Activity/Diet/Wound Care/Special Instructions: Avoid the use of street drugs and alcohol. Take all medications as prescribed. When you are in need of refills on your medications, please contact your medical provider and/or outpatient psychiatrist to have this done. Please go to scheduled outpatient appointments for aftercare treatment. If symptoms return or become worse, call the crisis line at and/or go to the nearest emergency room for evaluation. Discharge Disposition: HOME SELF-CARE
== END 2023-01-07 12:56 | disposition home or self-care (01) | DRG 750 ==
LOC: EC 16:36 → 3MHU 23:53
PROVIDERS: ADMIT Psychiatry & Neurology Psychiatry; ATTEND Psychiatry & Neurology Psychiatry
DX: F25.9 Schizoaffective disorder, unspecified (principal); F10.229 Alcohol dependence with intoxication, unspecified; F11.90 Opioid use, unspecified, uncomplicated; F15.129 Other stimulant abuse with intoxication, unspecified; F17.200 Nicotine dependence, unspecified, uncomplicated; F31.9 Bipolar disorder, unspecified; F41.9 Anxiety disorder, unspecified; F60.2 Antisocial personality disorder; G47.00 Insomnia, unspecified; I10 Essential (primary) hypertension; T50.902A Poisoning by unspecified drugs, medicaments and biological substances, intentional self-harm, initial encounter; Z56.0 Unemployment, unspecified; Z59.00 Homelessness unspecified; Z79.899 Other long term (current) drug therapy; Z81.8 Family history of other mental and behavioral disorders; Z20.822 Contact with and (suspected) exposure to COVID-19
CPT/HCPCS: 80053; 80061; 80306; 81003; 82075; 82248; 84443; 85025; 87635; 99285

== ENCOUNTER 2023-04-18 22:48 | Observation (INO) | payer OTHER ==
--- NOTE | 2023-04-18 23:18 | ED ---
Alcohol HPI - General Chief Complaint: Alcohol Stated Complaint: Intoxicated Time Seen by Provider: 04/18/23 23:02 Source: patient, RN notes reviewed, old records reviewed Mode of arrival: ambulatory - History of Present Illness Initial Comments: This is a 38-year-old male to the emergency department for evaluation presented with alleged alcohol intoxication. Does admit alcohol use today. Sensation states he had a seizure prior to arrival, states [facility]. Not homicidal or suicidal has been hospital for psychiatric illness in the past. MD Complaint: alcohol intoxication, alcohol withdrawal Last Drink: just [employer] -: minute(s) Previous Visits for Alcohol Intoxication?: Yes Recent Trauma: Yes Associated Symptoms: denies other symptoms Treatments Prior to Arrival: none Chronic Alcohol Use: Yes - Related Data Home Medications Medication Instructions Recorded Confirmed Albuterol Inhaler [Ventolin Hfa 1 - 2 puff INHALATION RT-Q6H PRN 01/02/23 04/19/23 Inhaler] Previous Rx's Medication Instructions Recorded Gabapentin 600 mg PO TID 3 Days #9 tab 01/07/23 Paliperidone [Invega] 6 mg PO DAILY 30 Days #30 tab 01/07/23 QUEtiapine [SEROquel] 100 mg PO HS 30 Days #30 tab 01/07/23 Allergies Allergy/AdvReac Type Severity Reaction Status Date / Time No Known Allergies Allergy Verified 04/19/23 11:31 Review of Systems ROS Statement: Those systems with pertinent positive or pertinent negative responses have been documented in the HPI. ROS Other: All systems not noted in ROS Statement are negative. Past Medical History Past Medical History: No Reported History, Hypertension Additional Past Medical History / Comment(s): recovering heroin addict, Psychosis History of Any Multi-Drug Resistant Organisms: None Reported Past Surgical History: No Surgical Hx Reported, Tonsillectomy Past Anesthesia/Blood Transfusion Reactions: No Reported Reaction Past Psychological History: Anxiety, Bipolar, Depression Smoking Status: Current every day smoker Past Alcohol Use History: Daily, Heavy, Occasional Past Drug Use History: Heroin, Marijuana, Methamphetamine - Past Family History Mother Family Medical History: Diabetes Mellitus Father Family Medical History: Coronary Artery Disease (CAD) family Family Medical History: Unable to Obtain General Exam General appearance: alert, in no apparent distress Head exam: Present: atraumatic, normocephalic, normal inspection Eye exam: Present: normal appearance, PERRL, EOMI. Absent: scleral icterus, conjunctival injection, periorbital swelling ENT exam: Present: normal exam, mucous membranes moist Neck exam: Present: normal inspection. Absent: tenderness, meningismus, lymphadenopathy Respiratory exam: Present: normal lung sounds bilaterally. Absent: respiratory distress, wheezes, rales, rhonchi, stridor Cardiovascular Exam: Present: regular rate, normal rhythm, normal heart sounds. Absent: systolic murmur, diastolic murmur, rubs, gallop, clicks GI/Abdominal exam: Present: soft, normal bowel sounds. Absent: distended, tenderness, guarding, rebound, rigid Extremities exam: Present: normal inspection, full ROM, normal capillary refill. Absent: tenderness, pedal edema, joint swelling, calf tenderness Back exam: Present: normal inspection Neurological exam: Present: alert, oriented X3, CN II-XII intact Psychiatric exam: Present: normal affect, normal mood Skin exam: Present: warm, dry, intact, normal color. Absent: rash Course Vital Signs 04/18/23 04/19/23 22:49 02:55 Temperature 98 F 98.1 F Pulse Rate 109 H 110 H Respiratory 19 20 Rate Blood Pressure 170/91 140/80 O2 Sat by Pulse 97 96 Oximetry - Reevaluation(s) Reevaluation #1: 04/18/23 23:17 Record is reviewed Reevaluation #2: 04/19/23 01:56 Patient has no recurrent seizure here in the ER Reevaluation #3: 04/19/23 01:57 Patient informed results and questions answered Reevaluation #4: 04/18/23 23:36 Was pt. sent in by a medical professional or institution (, PA, [employer]UAR[employer] WORKER, urgent care, hospital, or [facility]...) When possible be specific @ -no Did you speak to anyone other than the patient for history (EMS, parent, family, police, friend...)? What history was obtained from this source @ -no Did you review nursing and triage notes (agree or disagree)? Why? @ -agree Are old charts reviewed (outside hosp., previous admission, EMS record, old EKG, old radiological studies, urgent care reports/EKG's, [facility] records)? Report findings @ -yes Differential Diagnosis (chest pain, altered mental status, abdominal pain women, abdominal pain men, vaginal bleeding, weakness, fever, dyspnea, syncope, headache, dizziness, GI bleed, back pain, seizure, CVA, palpatations, mental health, musculoskeletal)? @ -prior EKG interpreted by me (3pts min.). @ -no X-rays interpreted by me (1pt min.). @ -no CT interpreted by me (1pt min.). @ -no U/S interpreted by me (1pt. min.). @ -no What testing was considered but not performed or refused? (CT, X-rays, U/S, labs)? Why? @ -none What meds were considered but not given or refused? Why? @ -none Did you discuss the management of the patient with other professionals (prof christian i.e. , PA, RESTUARANT [employer] WORKER, lab, RT, psych nurse, social security benefits interviewer, director of market research, teacher, welfare officer, nurse case management)? Give summary @ -no Was smoking cessation discussed for >3mins.? @ -no Was critical care preformed (if so, how long)? @ -no Were there social determinants of health that impacted care today? How? (Homelessness, low income, unemployed, alcoholism, drug addiction, transportation, low edu. Level, literacy, decrease access to med. care, retirement, rehab)? @ -none Was there de-escalation of care discussed even if they declined (Discuss DNR or withdrawal of care, Hospice)? DNR status @ -no What co-morbidities impacted this encounter? (DM, HTN, Smoking, COPD, CAD, Cancer, CVA, ARF, Chemo, Hep., AIDS, mental health diagnosis, sleep apnea, morbid obesity)? @ -none Was patient admitted / discharged? Hospital course, mention meds given and route, prescriptions, significant lab abnormalities, going to OR and other pertinent info. @ - 38 male to the emergency department for evaluation of severe alcohol intoxication, history of alcoholism, states she has seizure prior to arrival, patient will be admitted for observation of possible seizures as he feels like he may have another seizure as well as possible evaluation for pending DTs as well as psychiatric evaluation regarding history of mental health Admitted Undiagnosed new problem with uncertain prognosis? @ -no Drug Therapy requiring intensive monitoring for toxicity (Heparin, Nitro, Insulin, Cardizem)? @ -no Were any procedures done? @ -no Diagnosis/symptom? @ -Alcohol intoxication pending DTs depression Acute, or Chronic, or Acute on Chronic? @ -Acute Uncomplicated (without systemic symptoms) or Complicated (systemic symptoms)? @ -Complicated Side effects of treatment? @ -no Exacerbation, Progression, or Severe Exacerbation? @ -exacerbation Poses a threat to life or bodily function? How? (Chest pain, USA, CT, pneumonia, PE, COPD, DKA, ARF, appy, cholecystitis, CVA, Diverticulitis, Homicidal, Suicidal, threat to staff... and all critical care pts) @ -yes with significant overdose and withdrawal Reevaluation #5: 04/19/23 01:57 Differential Seizure: Recurrent seizure disorder, febrile seizure, alcohol withdrawal, stimulants, meningitis, encephalitis, intercranial hemorrhage, intracranial tumor, stroke, eclampsia, thyrotoxicosis, hypocalcemia, hyponatremia, hypernatremia, hypomagnesemia, psychogenic, this is not meant to be an all-inclusive list. - Consultations Consultation #1: Spoke with [facility] were agreeable to admit this patient Medical Decision Making - Medical Decision Making 38 male to the emergency department for evaluation of severe alcohol intoxication, history of alcoholism, states she has seizure prior to arrival, patient will be admitted for observation of possible seizures as he feels like he may have another seizure as well as possible evaluation for pending DTs as well as psychiatric evaluation regarding history of mental health - Lab Data Result diagrams: 04/18/23 23:48 04/18/23 23:48 Lab Results 04/18/23 04/18/23 Range/Units 23:48 23:48 WBC 11.7 H (3.8-10.6) k/uL RBC 5.40 (4.30-5.90) m/uL Hgb 17.1 (13.0-17.5) gm/dL Hct 50.1 (39.0-53.0) % MCV 92.8 (80.0-100.0) fL MCH 31.7 (25.0-35.0) pg MCHC 34.2 (31.0-37.0) g/dL RDW 17.9 H (11.5-15.5) % Plt Count 271 (150-450) k/uL MPV 8.2 Neutrophils % 67 % Lymphocytes % 24 % Monocytes % 4 % Eosinophils % 4 % Basophils % 1 % Neutrophils # 7.8 H (1.3-7.7) k/uL Lymphocytes # 2.8 (1.0-4.8) k/uL Monocytes # 0.4 (0-1.0) k/uL Eosinophils # 0.4 (0-0.7) k/uL Basophils # 0.1 (0-0.2) k/uL Anisocytosis Slight Sodium 137 (137-145) mmol/L Potassium 4.0 (3.5-5.1) mmol/L Chloride 102 (98-107) mmol/L Carbon Dioxide 23 (22-30) mmol/L Anion Gap 12 mmol/L BUN 8 L (9-20) mg/dL Creatinine 0.76 (0.66-1.25) mg/dL Est GFR (CKD-EPI)AfAm >90 (>60 ml/min/1.73 sqM) Est GFR (CKD-EPI)NonAf >90 (>60 ml/min/1.73 sqM) Glucose 142 H (74-99) mg/dL Calcium 8.6 (8.4-10.2) mg/dL Phosphorus 3.5 (2.5-4.5) mg/dL Magnesium 1.9 (1.6-2.3) mg/dL Total Bilirubin 0.8 (0.2-1.3) mg/dL AST 76 H (17-59) U/L ALT 75 H (4-49) U/L Alkaline Phosphatase 87 (38-126) U/L Total Protein 7.6 (6.3-8.2) g/dL Albumin 4.1 (3.5-5.0) g/dL Lipase 123 (23-300) U/L Serum Alcohol 246 H* mg/dL Disposition Clinical Impression: Alcohol intoxication, Major depressive disorder, recurrent severe without psychotic features, Alcohol use disorder, Depressive disorder, Suicidal ideation Disposition: ADMITTED IP TO THIS HOSP Condition: Fair Is patient prescribed a controlled substance at d/c from ED?: No Time of Disposition: 01:30
[2023-04-18] MEDS ORDERED: LORazepam 2 MG/ML INJ IV STA (23:34)
[2023-04-18] MEDS ORDERED: SODIUM CHLORIDE 0.9% 1,000 ML IV STA (23:34)
[2023-04-18] MEDS ORDERED: SODIUM CHLORIDE 0.9% 500 ML 500 ML IV STA (23:34)
[2023-04-19] LABS: Anisocytosis Slight; Basophils # (A) 0.1 k/uL (0-0.2); Basophils % (A) 1 %; Eosinophils # (A) 0.4 k/uL (0-0.7); Eosinophils % (A) 4 %; HCT 50.1 % (39.0-53.0); HGB 17.1 gm/dL (13.0-17.5); Lymphocytes # (A) 2.8 k/uL (1.0-4.8); Lymphocytes % (A) 24 %; MCH 31.7 pg (25.0-35.0); MCHC 34.2 g/dL (31.0-37.0); MCV 92.8 fL (80.0-100.0); Mean Platelet Volume 8.2; Monocytes # (A) 0.4 k/uL (0-1.0); Monocytes % (A) 4 %; Neutrophils # (A) 7.8 k/uL (1.3-7.7); Neutrophils % (A) 67 %; Platelet Count 271 k/uL (150-450); RDW 17.9 % (11.5-15.5); WBC 11.7 k/uL (3.8-10.6)
[2023-04-19 00:19] LABS: ALT 75 U/L (4-49); AST 76 U/L (17-59); African American GFR (CKD) >90 (>60 ml/min/1.73 sqM); Albumin 4.1 g/dL (3.5-5.0); Alkaline Phosphatase 87 U/L (38-126); Anion Gap 12 mmol/L; Blood Urea Nitrogen 8 mg/dL (9-20); Calcium 8.6 mg/dL (8.4-10.2); Carbon Dioxide 23 mmol/L (22-30); Chloride 102 mmol/L (98-107); Glucose 142 mg/dL (74-99); Lipase 123 U/L (23-300); Magnesium 1.9 mg/dL (1.6-2.3); Non-African American GFR(CKD) >90 (>60 ml/min/1.73 sqM); Phosphorus 3.5 mg/dL (2.5-4.5); Sodium 137 mmol/L (137-145); Total Bilirubin 0.8 mg/dL (0.2-1.3); Total Protein 7.6 g/dL (6.3-8.2)
[2023-04-19 00:25] LABS: Alcohol 246 mg/dL
[2023-04-19] MEDS ORDERED: NALOXONE 0.4 MG/ML 1 ML VIAL IV PRN (01:55)
[2023-04-19] MEDS ORDERED: MORPHINE SULFATE 4 MG/ML SYRINGE IV PRN (01:55)
[2023-04-19] MEDS ORDERED: ONDANSETRON 4 MG/2 ML VIAL IVP PRN (01:55)
[2023-04-19] MEDS ORDERED: LORazepam 2 MG/ML INJ IV PRN ×2 (01:59)
[2023-04-19] MEDS ORDERED: THIAMINE 100 MG/ML 2 ML VIAL IM STA (01:59)
[2023-04-19] MEDS: SODIUM CHLORIDE 0.9% 1,000 ML IV SCH ×3 (02:44→15:30)
[2023-04-19] MEDS: LORazepam 2 MG/ML INJ IV PRN ×3 (03:40→09:00)
[2023-04-19] MEDS ORDERED: ASPIRIN 81 MG PO STA (06:24)
[2023-04-19 07:51] VITALS: RESP 16
[2023-04-19] MEDS: MULTIVITAMINS, THERA 1 EACH TAB PO SCH (08:51)
[2023-04-19] MEDS: FOLIC ACID 1 MG TAB PO SCH (08:51)
--- NOTE | 2023-04-19 11:50 | P.CN ---
Psychiatric Consult - . 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 AND THAT HE HAS TIME ON HIS HAND AND STAYS IN THE ROOM AND USUALLY DRINKS HE STATES THAT THERE IS ALCOHOLISM IN HIS FAMILY HE SAYS THAT HE IS CONCERNED ABOUT LOSING HIS JOB PATIENT THEN ALSO REQUESTED IF HE COULD HAVE OUTPATIENT MANAGEMENT OF HIS TREATMENT AND THAT THE LORAZEPAM IS ONLY THING THAT SEEMS TO HELP HIS CONDITION HE SAYS THAT HE DOES NOT TAKE ANY MEDICATIONS AT THIS TIME PAST HISTORY PERSONAL SOCIAL HISTORY: PATIENT ADMITS THAT HE HAS HAD A HISTORY OF SOBRIETY FOR A WHILE BUT DID NOT GIVE ANY SPECIFICS PATIENT SAYS THAT HE IS 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 Fair eye contact Patient however does show some mild tremulousness Speech: Patient's speech is with normal volume, spontaneity, and tone. Mood/Affect: Mood is "fair?" affect is sad and withdrawn Suicidality/Homicidality: Patient reports suicidal ideation. Perceptions: The patient does not endorse auditory hallucinations but no visual hallucinations. Though content/process: Coherent and relevant goal-directed Memory and concentration: Grossly intact for the purposes of this session. Judgment and insight: Fair Diagnostic impression: Adjustment disorder with mixed emotional features Alcohol use disorder severe chronic Alcohol withdrawal syndrome Plan: The patient this time does not meet the criteria for inpatient psychiatric hospitalization Patient however is a good candidate for alcohol intoxication syndrome treatment as well as appropriate safety measures due to his concerns with the seizures Continue monitoring with CIWA score an appropriate lorazepam/Valium administration for withdrawal symptoms Would recommend referral to appropriate alcohol inpatient/outpatient facility including AA and NA referral after medical stabilization and before discharge Thank you very much for referral and please refer to contact me if any further questions Lenin Chaudhry M.D.
--- NOTE | 2023-04-19 12:02 | P.HP ---
Psychiatric H&P - . H&P Date: 04/19/23 History & Physical: Allergies Allergy/AdvReac Type Severity Reaction Status Date / Time No Known Allergies Allergy Verified 04/19/23 11:31 Vital Signs Temp 98.4 F 04/19/23 07:05 Pulse 116 H 04/19/23 07:05 Resp 16 04/19/23 07:05 BP 153/94 04/19/23 07:05 Pulse Ox 97 04/19/23 07:05 FiO2 Intake & Output 04/18/23 04/19/23 04/19/23 18:59 06:59 18:59 Weight 144.242 kg Other: # Voids 2 Laboratory Last Values WBC 11.7 k/uL (3.8-10.6) H 04/18/23 23:48 RBC 5.40 m/uL (4.30-5.90) 04/18/23 23:48 Hgb 17.1 gm/dL (13.0-17.5) 04/18/23 23:48 Hct 50.1 % (39.0-53.0) 04/18/23 23:48 MCV 92.8 fL (80.0-100.0) 04/18/23 23:48 MCH 31.7 pg (25.0-35.0) 04/18/23 23:48 MCHC 34.2 g/dL (31.0-37.0) 04/18/23 23:48 RDW 17.9 % (11.5-15.5) H 04/18/23 23:48 Plt Count 271 k/uL (150-450) 04/18/23 23:48 MPV 8.2 04/18/23 23:48 Neutrophils % 67 % 04/18/23 23:48 Lymphocytes % 24 % 04/18/23 23:48 Monocytes % 4 % 04/18/23 23:48 Eosinophils % 4 % 04/18/23 23:48 Basophils % 1 % 04/18/23 23:48 Neutrophils # 7.8 k/uL (1.3-7.7) H 04/18/23 23:48 Lymphocytes # 2.8 k/uL (1.0-4.8) 04/18/23 23:48 Monocytes # 0.4 k/uL (0-1.0) 04/18/23 23:48 Eosinophils # 0.4 k/uL (0-0.7) 04/18/23 23:48 Basophils # 0.1 k/uL (0-0.2) 04/18/23 23:48 Anisocytosis Slight 04/18/23 23:48 Sodium 137 mmol/L (137-145) 04/18/23 23:48 Potassium 4.0 mmol/L (3.5-5.1) 04/18/23 23:48 Chloride 102 mmol/L (98-107) 04/18/23 23:48 Carbon Dioxide 23 mmol/L (22-30) 04/18/23 23:48 Anion Gap 12 mmol/L 04/18/23 23:48 BUN 8 mg/dL (9-20) L 04/18/23 23:48 Creatinine 0.76 mg/dL (0.66-1.25) 04/18/23 23:48 Est GFR (CKD-EPI)AfAm >90 (>60 ml/min/1.73 sqM) 04/18/23 23:48 Est GFR (CKD-EPI)NonAf >90 (>60 ml/min/1.73 sqM) 04/18/23 23:48 Glucose 142 mg/dL (74-99) H 04/18/23 23:48 Calcium 8.6 mg/dL (8.4-10.2) 04/18/23 23:48 Phosphorus 3.5 mg/dL (2.5-4.5) 04/18/23 23:48 Magnesium 1.9 mg/dL (1.6-2.3) 04/18/23 23:48 Total Bilirubin 0.8 mg/dL (0.2-1.3) 04/18/23 23:48 AST 76 U/L (17-59) H 04/18/23 23:48 ALT 75 U/L (4-49) H 04/18/23 23:48 Alkaline Phosphatase 87 U/L (38-126) 04/18/23 23:48 Total Protein 7.6 g/dL (6.3-8.2) 04/18/23 23:48 Albumin 4.1 g/dL (3.5-5.0) 04/18/23 23:48 Lipase 123 U/L (23-300) 04/18/23 23:48 Serum Alcohol 246 mg/dL H* 04/18/23 23:48 04/19/23 12:00 Psychiatric Consult CORRECTED NOTE - . 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 AND THAT HE HAS TIME ON HIS HAND AND STAYS IN THE ROOM AND USUALLY DRINKS HE STATES THAT THERE IS ALCOHOLISM IN HIS FAMILY HE SAYS THAT HE IS CONCERNED ABOUT LOSING HIS JOB PATIENT THEN ALSO REQUESTED IF HE COULD HAVE OUTPATIENT MANAGEMENT OF HIS TREATMENT AND THAT THE LORAZEPAM IS ONLY THING THAT SEEMS TO HELP HIS CONDITION HE SAYS THAT HE DOES NOT TAKE ANY MEDICATIONS AT THIS TIME PAST HISTORY PERSONAL SOCIAL HISTORY: PATIENT ADMITS THAT HE HAS HAD A HISTORY OF SOBRIETY FOR A WHILE BUT DID NOT GIVE ANY SPECIFICS PATIENT SAYS THAT HE IS 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 Fair eye contact Patient however does show some mild tremulousness Speech: Patient's speech is with normal volume, spontaneity, and tone. Mood/Affect: Mood is "fair?" affect is sad and withdrawn Suicidality/Homicidality: Patient reports no suicidal ideation. Perceptions: The patient does not endorse auditory hallucinations but no visual hallucinations. Though content/process: Coherent and relevant goal-directed Memory and concentration: Grossly intact for the purposes of this session. Judgment and insight: Fair Diagnostic impression: Adjustment disorder with mixed emotional features Alcohol use disorder severe chronic Alcohol withdrawal syndrome Plan: The patient this time does not meet the criteria for inpatient psychiatric hospitalization Patient however is a good candidate for alcohol intoxication syndrome treatment as well as appropriate safety measures due to his concerns with the seizures Continue monitoring with CIWA score an appropriate lorazepam/Valium administration for withdrawal symptoms Would recommend referral to appropriate alcohol inpatient/outpatient facility including AA and NA referral after medical stabilization and before discharge Thank you very much for referral and please refer to contact me if any further questions Lenin Chaudhry M.D.
[2023-04-19] MEDS ORDERED: chlordiazePOXIDE 25 MG CAP PO SCH (16:00)
[2023-04-19] MEDS: chlordiazePOXIDE 25 MG CAP PO SCH ×2 (20:10→22:58)
[2023-04-20] MEDS: LORazepam 2 MG/ML INJ IV PRN (03:20)
[2023-04-20] MEDS: SODIUM CHLORIDE 0.9% 1,000 ML IV SCH ×2 (03:21→08:12)
[2023-04-20] MEDS: FOLIC ACID 1 MG TAB PO SCH (08:12)
[2023-04-20] MEDS: chlordiazePOXIDE 25 MG CAP PO SCH (08:12)
[2023-04-20] MEDS: MULTIVITAMINS, THERA 1 EACH TAB PO SCH (08:12)
[2023-04-20 08:33] VITALS: BP 141/86; PULSE 90; TEMP 98.2
[2023-04-20] MEDS ORDERED: THIAMINE 100 MG TAB PO SCH (09:00)
[2023-04-20] MEDS ORDERED: ALBUTEROL NEBULIZED 2.5 MG/3 ML INHALATION PRN (09:41)
--- NOTE | 2023-04-20 09:43 | P.HPIM ---
History of Present Illness H&P Date: 04/19/23 Chief Complaint: Alcohol intoxication 38-year-old male, history of hypertension, presents to the emergency department for evaluation of alleged alcohol intoxication and alcohol-induced seizure. Does admit alcohol use today. Patient states he had a seizure prior to arrival, states did bring himself to the hospital under his own accord. Not homicidal or suicidal has been hospital for psychiatric illness in the past. Blood work completed in ED visit WBC of 11.7, hemoglobin of 17.1 and platelet count of 271, sodium 137, potassium 4.2, BUN/creatinine of 12/8, blood glucose of 142, AST/ALT of 76/75, serum alcohol level of 246 Review of Systems REVIEW OF SYSTEMS: CONSTITUTIONAL: No fever, no malaise, no fatigue. HEENT: No recent visual problems or hearing problems. Denied any sore throat. CARDIOVASCULAR: No chest pain, orthopnea, PND, no palpitations, no syncope. PULMONARY: No shortness of breath, no cough, no hemoptysis. GASTROINTESTINAL: No diarrhea, no nausea, no vomiting, no abdominal pain. NEUROLOGICAL: No headaches, no weakness, no numbness. HEMATOLOGICAL: Denies any bleeding or petechiae. GENITOURINARY: Denies any burning micturition, frequency, or urgency. MUSCULOSKELETAL/RHEUMATOLOGICAL: Denies any joint pain, swelling, or any muscle pain. ENDOCRINE: Denies any polyuria or polydipsia. The rest of the 14-point review of systems is negative. Past Medical History Past Medical History: No Reported History, Hypertension Additional Past Medical History / Comment(s): recovering heroin addict, Psychosis History of Any Multi-Drug Resistant Organisms: None Reported Past Surgical History: No Surgical Hx Reported, Tonsillectomy Past Anesthesia/Blood Transfusion Reactions: No Reported Reaction Past Psychological History: Anxiety, Bipolar, Depression Smoking Status: Current every day smoker Past Alcohol Use History: Daily, Heavy, Occasional Additional Past Alcohol Use History / Comment(s): Approximately 1/5 daily Past Drug Use History: Heroin, Marijuana, Methamphetamine - Past Family History Mother Family Medical History: Diabetes Mellitus Father Family Medical History: Coronary Artery Disease (CAD) family Family Medical History: Unable to Obtain Medications and Allergies Home Medications Medication Instructions Recorded Confirmed Type Albuterol Inhaler [Ventolin Hfa 1 - 2 puff INHALATION RT-Q6H PRN 01/02/23 04/19/23 History Inhaler] Gabapentin 600 mg PO TID 3 Days #9 tab 01/07/23 04/19/23 Rx Paliperidone [Invega] 6 mg PO DAILY 30 Days #30 tab 01/07/23 04/19/23 Rx QUEtiapine [SEROquel] 100 mg PO HS 30 Days #30 tab 01/07/23 04/19/23 Rx Allergies Allergy/AdvReac Type Severity Reaction Status Date / Time No Known Allergies Allergy Verified 04/19/23 11:31 Physical Exam Vitals: Vital Signs Temp Pulse Pulse Resp BP BP Pulse Ox 04/19/23 07:05 98.4 F 116 H 16 153/94 97 04/19/23 03:10 97.9 F 113 H 18 142/78 96 04/19/23 02:55 98.1 F 110 H 20 140/80 96 04/18/23 22:49 98 F 109 H 19 170/91 97 Intake and Output 04/18/23 04/19/23 04/19/23 22:59 06:59 14:59 Intake Total 1040 Balance 1040 Intake: Intake, IV Titration 1040 Amount Sodium Chloride 0.9% 1, 1040 000 ml @ 130 mls/hr IV . [id number] [facility] Rx#:[id number] Other: # Voids 2 Weight 144.242 kg 144.242 kg General appearance: alert, in no apparent distress Head exam: Present: atraumatic, normocephalic, normal inspection Eye exam: Present: normal appearance, PERRL, EOMI. Absent: scleral icterus, conjunctival injection, periorbital swelling ENT exam: Present: normal exam, mucous membranes moist Neck exam: Present: normal inspection. Absent: tenderness, meningismus, lymphadenopathy Respiratory exam: Present: normal lung sounds bilaterally. Absent: respiratory distress, wheezes, rales, rhonchi, stridor Cardiovascular Exam: Present: regular rate, normal rhythm, normal heart sounds. Absent: systolic murmur, diastolic murmur, rubs, gallop, clicks GI/Abdominal exam: Present: soft, normal bowel sounds. Absent: distended, tenderness, guarding, rebound, rigid Extremities exam: Present: normal inspection, full ROM, normal capillary refill. Absent: tenderness, pedal edema, joint swelling, calf tenderness Back exam: Present: normal inspection Neurological exam: Present: alert, oriented X3, CN II-XII intact Psychiatric exam: Present: normal affect, normal mood Skin exam: Present: warm, dry, intact, normal color. Absent: rash Results CBC & Chem 7: 04/18/23 23:48 04/18/23 23:48 Labs: Abnormal Lab Results - Last 24 Hours (Table) 04/18/23 04/18/23 Range/Units 23:48 23:48 WBC 11.7 H (3.8-10.6) k/uL RDW 17.9 H (11.5-15.5) % Neutrophils # 7.8 H (1.3-7.7) k/uL BUN 8 L (9-20) mg/dL Glucose 142 H (74-99) mg/dL AST 76 H (17-59) U/L ALT 75 H (4-49) U/L Serum Alcohol 246 H* mg/dL Thrombosis Risk Factor Assmnt - Choose All That Apply Any of the Below Risk Factors Present?: Yes Each Factor Represents 1 point: Obesity (BMI >25) Other Risk Factors: No Other congenital or acquired thrombophilia - If yes, enter type in comment: No Thrombosis Risk Factor Assessment Total Risk Factor Score: 1 Thrombosis Risk Factor Assessment Level: Low Risk Assessment and Plan Assessment: 1. Alcohol intoxication/pending withdrawal - Patient is placed on IV fluids in form of normal saline at rate of 1 30 mL an hour; Librium 25 mg by mouth 4 times a day; thiamine 100 mg daily - Patient has been placed on CIWA protocol with Ativan 2. Chronic alcohol abuse; counseling done and need for cessation; site consulted 3. Depression/psychosis; patient takes in Ribeiro 6 mg daily along with Seroquel 100 mg by mouth daily at bedtime 4. Uncontrolled hypertension; likely related to intoxication; patient is currently not on any antihypertensive therapy; we will monitor blood pressure closely during the hospital stay and make some adjustment 5. Anxiety; Neurontin 600 mg daily DVT prophylaxis; SCDs CODE STATUS; full code
[2023-04-20] MEDS ORDERED: PALIPERIDONE 6 MG TAB.ER.24 PO SCH (09:45)
[2023-04-20] MEDS ORDERED: chlordiazePOXIDE 25 MG CAP PO SCH (16:00)
[2023-04-20] MEDS ORDERED: GABAPENTIN 300 MG CAP PO SCH (16:00)
[2023-04-20] MEDS ORDERED: QUEtiapine 100 MG TAB PO SCH (21:00)
== END 2023-04-20 12:45 | disposition left against medical advice (07) ==
LOC: EC 22:48 → 6NMEDSUR 04-19 01:55
PROVIDERS: ADMIT Hospitalist; ATTEND Hospitalist
DX: F10.229 Alcohol dependence with intoxication, unspecified (principal); F29 Unspecified psychosis not due to a substance or known physiological condition; Y90.8 Blood alcohol level of 240 mg/100 ml or more; F43.23 Adjustment disorder with mixed anxiety and depressed mood; F31.9 Bipolar disorder, unspecified; F41.9 Anxiety disorder, unspecified; R45.851 Suicidal ideations; R56.9 Unspecified convulsions; I10 Essential (primary) hypertension; F17.200 Nicotine dependence, unspecified, uncomplicated; E66.9 Obesity, unspecified; Z68.42 Body mass index [BMI] 45.0-49.9, adult; Z71.41 Alcohol abuse counseling and surveillance of alcoholic; Z79.899 Other long term (current) drug therapy; Z83.3 Family history of diabetes mellitus; Z82.49 Family history of ischemic heart disease and other diseases of the circulatory system
CPT/HCPCS: 96376 ×2; 96361 ×3; 96375; 96372; 96374; 99285; 36415; 80053; 83690; 83735; 84100; 85025; G0378 ×2; G0480; J2060 ×3; J2270; J3411; J2405; 80320

== ENCOUNTER → 2024-01-20 | Outpatient (CLI) | payer OTHER ==
[2024-01-20 15:41] LABS: Blood Urea Nitrogen 11.1 mg/dL (9.0-27.0); Carbon Dioxide 24.1 mmol/L (21.6-31.8); Chloride 91 mmol/L (96-109); Glucose 586 mg/dL (70-110); Potassium 4.6 mmol/L (3.5-5.5); Sodium 132 mmol/L (135-145)
[2024-01-20 15:42] LABS: ALT 37 U/L (10-49); AST 20 U/L (14-35); Albumin 4.7 g/dL (3.8-4.9); Albumin/Globulin Ratio 1.42 Ratio (1.60-3.17); Alkaline Phosphatase 121 U/L (41-126); Calcium 10.4 mg/dL (8.7-10.3); Globulin 3.3 g/dL (1.6-3.3); Total Bilirubin 0.5 mg/dL (0.3-1.2)
== END | disposition home or self-care (01) ==
LOC: LABWHC1 08:35
PROVIDERS: ATTEND Family Medicine
DX: Z13.1 Encounter for screening for diabetes mellitus (principal); R89.1 Abnormal level of hormones in specimens from other organs, systems and tissues; Z79.899 Other long term (current) drug therapy
CPT/HCPCS: 36415; 80053; 83036; 84402; 84403

== ENCOUNTER 2024-06-13 22:47 | Emergency (ER) | payer OTHER ==
[2024-06-13] MEDS: FAMOTIDINE 20 MG/2 ML VIAL IV STA (23:22)
[2024-06-13] MEDS: diphenhydrAMINE 50 MG/ML 1 ML VIAL IVP STA (23:23)
[2024-06-13] MEDS: methylPREDNISolone SOD SUCCI 125 MG/2 ML VIAL IV STA (23:24)
[2024-06-13] MEDS: SODIUM CHLORIDE 0.9% 1,000 ML IV STA (23:24)
--- NOTE | 2024-06-13 23:29 | ED ---
Allergic Reaction HPI - General Chief complaint: Allergic Reaction Stated complaint: Mouth Pain - burn Time Seen by Provider: 06/13/24 23:06 Source: patient Mode of arrival: ambulatory Limitations: no limitations - History of Present Illness Initial Comments: Patient is a pleasant 39-year-old gentleman with a past medical history of diabetes, nicotine dependence, presenting today for allergic reaction to a "Piter" nicotine packet. Patient states that he placed to the nicotine packet and his lip yesterday evening and after a few hours of having the packet in his lower lip, began to experience burning pain in the inner lip. He noticed small blisters along the inner aspect of his lip this morning. He attempted to wash his mouth out with mouthwash and alcohol however afterwards began experiencing worsening burning and noticed new blistering on the inner aspect of his right cheek and felt like his lips were swollen. He tried to take 600 mg of ibuprofen at 6:00 tonight without relief of pain. Patient became very flushed prompting his mother to bring him to the emergency department. Patient denies difficulty in breathing or chest pain, nausea or vomiting or abdominal pain. Denies history of allergies to anything in the past. No recent adjustments to his medications. No new medications. Denies fevers though did have a temperature of 99.9 degrees in triage. - Related Data Home Medications Medication Instructions Recorded Confirmed Albuterol Inhaler [Ventolin Hfa 1 - 2 puff INHALATION RT-Q6H PRN 01/02/23 04/19/23 Inhaler] Previous Rx's Medication Instructions Recorded Gabapentin 600 mg PO TID 3 Days #9 tab 01/07/23 Paliperidone [Invega] 6 mg PO DAILY 30 Days #30 tab 01/07/23 QUEtiapine [SEROquel] 100 mg PO HS 30 Days #30 tab 01/07/23 predniSONE [Deltasone] 40 mg PO DAILY 5 Days #14 tab 06/14/24 Allergies Allergy/AdvReac Type Severity Reaction Status Date / Time No Known Allergies Allergy Verified 06/13/24 23:05 Review of Systems ROS Statement: Those systems with pertinent positive or pertinent negative responses have been documented in the HPI. ROS Other: All systems not noted in ROS Statement are negative. Past Medical History Past Medical History: No Reported History, Hypertension Additional Past Medical History / Comment(s): recovering heroin addict, Psychosis History of Any Multi-Drug Resistant Organisms: None Reported Past Surgical History: No Surgical Hx Reported, Tonsillectomy Past Anesthesia/Blood Transfusion Reactions: No Reported Reaction Past Psychological History: Anxiety, Bipolar, Depression Smoking Status: Current every day smoker Past Alcohol Use History: Daily, Heavy, Occasional Past Drug Use History: Heroin, Marijuana, Methamphetamine - Past Family History Mother Family Medical History: Diabetes Mellitus Father Family Medical History: Coronary Artery Disease (CAD) family Family Medical History: Unable to Obtain General Exam - General Exam Comments Initial Comments: PE: CONSTITUTIONAL: No apparent distress, well appearing SKIN: Warm, dry, no jaundice, hives or petechiae, no rashes or blistering lesions EYES: Pupils are equally round, extraocular movements intact without nystagmus, clear conjunctiva, non-icteric sclera HENT: Normocephalic, atraumatic, moist mucus membranes No oropharyngeal edema, no tongue swelling though lips appear slightly swollen, inner lower lip has few blister like lesions and one lesion right inner buccal mucosa NECK: , Full range of motion, normal appearance PULMONARY: Scant wheezes noted bilaterally, otherwise clear to auscultation with out rhonchi, or rales, normal excursion, no accessory muscle use and no stridor CARDIOVASCULAR: Regular rate, rhythm, normal S1 and S2. No appreciated murmurs, rubs or gallops. Strong radial pulses with intact distal perfusion. No lower extremity edema GASTROINTESTINAL: Soft, active bowel sounds throughout, non-tender, non- distended, no palpable masses, no rebound or guarding. No hepatosplenomegaly GENITOURINARY: MUSCULOSKELETAL: Extremities have no gross deformity, no edema, redness, or swelling. No calf swelling NEUROLOGIC:_a/o x 3, GCS 15, normal mentation and speech. Moves all extremities x 4 without motor or sensory deficit PSYCHIATRIC:_normal mood and affect, thought process is clear and linear Limitations: no limitations Course Vital Signs 06/13/24 06/13/24 06/13/24 23:01 23:18 23:37 Temperature 99.9 F H 98.0 F Pulse Rate 106 H 84 Respiratory 22 24 Rate Blood Pressure 129/77 144/72 O2 Sat by Pulse 97 96 Oximetry 06/13/24 06/14/24 06/14/24 23:43 00:56 01:48 Temperature 97.9 F Pulse Rate 84 75 77 Respiratory 18 20 Rate Blood Pressure 128/65 127/68 O2 Sat by Pulse 96 97 Oximetry Medical Decision Making - Medical Decision Making Was pt. sent in by a medical professional or institution (, SOFIA, SERVER SUPPORT TECHNICIAN, urgent care, hospital, or longterm...) When possible be specific @ -No Did you speak to anyone other than the patient for history (EMS, parent, family, police, friend...)? What history was obtained from this source @ -Spoke with patient's mother Did you review nursing and triage notes (agree or disagree)? Why? @ -I reviewed nursing and triage notes- pt denies sensation of throat swelling to me, when he describes difficulty swallowing, states it is 2/2 pain that occurs when his tongue moves against his inner lips as he swallows as opposed to pain in his throat Were old charts reviewed (outside hosp., previous admission, EMS record, old EKG, old radiological studies, urgent care reports/EKG's, longterm records)? Report findings @ -Medical records reviewed Differential Diagnosis (chest pain, altered mental status, abdominal pain women, abdominal pain men, vaginal bleeding, weakness, fever, dyspnea, syncope, headache, dizziness, GI bleed, back pain, seizure, CVA, palpatations, mental health, musculoskeletal)? @ -Differential diagnosis remains broad however top considerations include allergic reaction, anaphylaxis, SJS/TEN, hypersensitivity reaction, DRESS syndrome, this is not all inclusive list EKG interpreted by me (3pts min.). @ -As above X-rays interpreted by me (1pt min.). @ -None done CT interpreted by me (1pt min.). @ -None done U/S interpreted by me (1pt. min.). @ -None done What testing was considered but not performed or refused? (CT, X-rays, U/S, labs)? Why? @ -None What meds were considered but not given or refused? Why? @ -None Did you discuss the management of the patient with other professionals (professionals i.e. SOFIA Ruff, SERVER SUPPORT TECHNICIAN, lab, RT, psych nurse, nephrology social worker, manager finance, teacher, medical officer psychiatry, case coordinator)? Give summary @ -No Was smoking cessation discussed for >3mins.? @ -No Was critical care preformed (if so, how long)? @ -No Were there social determinants of health that impacted care today? How? (Homelessness, low income, unemployed, alcoholism, drug addiction, transportation, low edu. Level, literacy, decrease access to med. care, senior care, rehab)? @ -No Was there de-escalation of care discussed even if they declined (Discuss DNR or withdrawal of care, Hospice)? @ -No What co-morbidities impacted this encounter? (DM, HTN, Smoking, COPD, CAD, Cancer, CVA, ARF, Chemo, Hep., AIDS, mental health diagnosis, sleep apnea, morb id obesity)? @Nicotine dependance , DM Was patient admitted / discharged? Hospital course, mention meds given and route, prescriptions, significant lab abnormalities, going to OR and other pertinent info. @ Discharge- Patient is a 39-year-old gentleman with a remote history narcotic abuse in [facility], nicotine dependence, diabetes presenting today for allergic reaction to a nicotine pouch that resulted in blistering, pain and swelling of his lips and tongue. On my assessment patient is well-appearing and in no acute distress. No oropharyngeal edema, no tongue swelling though lips appear slightly swollen, inner lower lip has few blister like lesions and one lesion right inner buccal mucosa, does have scant wheezes bilaterally, though notes he is a smoker. No other skin involvement, symptoms, patient is awake and alert, and behaving appropriately. Tolerating secretions. Differential diagnoses as above, patient does have scant wheezes but denies PRAVEEN, and only mild lip swelling so will hold off on IM epinephrine admin at this point and treat as allergic reaction, reconsider administration if symptoms worsen or do not improve. In addition we will provide IV fluids and pain control, steroids, Pepcid, Benadryl and viscous lidocaine to apply to mucosal lesions. On reassessment patient continues to endorse pain, symptoms have not worsened however have not improved. On reevaluation patient appears comfortable, sleeping , lips do not appear swollen however patient appears to have some peeling of skin from the inferior aspect of his tongue the patient has no blistering or skin lesions aside from blisters noted in mouth however I am somewhat concerned for SJS versus TEN, due to mucosal involvement and borderline fever on arrival, will obtain CBC, CMP ESR, CRP and chest x-ray. Pt agreeable with POC Reviewed patient's labs, mild leukocytosis white blood cell count 13.8, could be reactive secondary to steroid administration, CRP minimally elevated at 8, no elevation alk phos, otherwise unremarkable. Chest x-ray reviewed, showed no pulmonary edema or other acute process. Without other skins lesions or symptoms, I do not feel patient's presentation consistent with SJS/TEN at this point. Updated patient to findings and we discussed plan for discharge, he has not had any worsening of symptoms. Pt comfortable with plan for discharge but requests pain medication to be discharged home with. Will send home with tylenol 3 starter pack. Pt agreeable with plan. Undiagnosed new problem with uncertain prognosis? @ -No Drug Therapy requiring intensive monitoring for toxicity (Heparin, Nitro, Insulin, Cardizem)? @ -No Were any procedures done? @ -No Diagnosis/symptom? @ Adverse reaction Acute, or Chronic, or Acute on Chronic? @ Acute Uncomplicated (without systemic symptoms) or Complicated (systemic symptoms)? @ Complicated Side effects of treatment? @ -No Exacerbation, Progression, or Severe Exacerbation? @ -No Poses a threat to life or bodily function? How? (Chest pain, [place], [place], pneumonia, PE, COPD, DKA, ARF, appy, cholecystitis, CVA, Diverticulitis, Homicidal, Suicidal, threat to staff... and all critical care pts) @ -No - Lab Data Result diagrams: 06/14/24 00:40 06/14/24 00:40 Lab Results 06/14/24 06/14/24 Range/Units 00:40 00:40 WBC 13.8 H (3.8-10.6) k/uL RBC 5.66 (4.30-5.90) m/uL Hgb 16.0 (13.0-17.5) gm/dL Hct 46.6 (39.0-53.0) % MCV 82.3 (80.0-100.0) fL MCH 28.3 (25.0-35.0) pg MCHC 34.4 (31.0-37.0) g/dL RDW 14.7 (11.5-15.5) % Plt Count 281 (150-450) k/uL MPV 9.7 Neutrophils % 70 % Lymphocytes % 18 % Monocytes % 7 % Eosinophils % 4 % Basophils % 0 % Neutrophils # 9.7 H (1.3-7.7) k/uL Lymphocytes # 2.5 (1.0-4.8) k/uL Monocytes # 0.9 (0-1.0) k/uL Eosinophils # 0.5 (0-0.7) k/uL Basophils # 0.1 (0-0.2) k/uL ESR 35 H (0-15) mm/Hr Sodium 132 L (137-145) mmol/L Potassium 3.7 (3.5-5.1) mmol/L Chloride 99 (98-107) mmol/L Carbon Dioxide 24 (22-30) mmol/L Anion Gap 9 mmol/L BUN 16 (9-20) mg/dL Creatinine 0.89 (0.66-1.25) mg/dL Est GFR (CKD-EPI)AfAm >90 (>60 ml/min/1.73 sqM) Est GFR (CKD-EPI)NonAf >90 (>60 ml/min/1.73 sqM) Glucose 114 H (74-99) mg/dL Calcium 9.2 (8.4-10.2) mg/dL Total Bilirubin 1.7 H (0.2-1.3) mg/dL AST 66 H (17-59) U/L ALT 44 (4-49) U/L Alkaline Phosphatase 77 (38-126) U/L C-Reactive Protein 8.0 H (<1.0) mg/dL Total Protein 7.7 (6.3-8.2) g/dL Albumin 4.6 (3.5-5.0) g/dL Disposition Clinical Impression: Allergic reaction Disposition: HOME SELF-CARE Condition: Good Instructions (If sedation given, give patient instructions): Allergies (ED) Additional Instructions: Every disease is a spectrum and a small chance still exists that a serious condition could develop, for this reason, please monitor yourself closely for new, changing or worsening symptoms, symptoms that do not improve over the next 24 to 48 hours, feelings of your tongue or throat swelling, difficulty breathing or inability to swallow saliva due to tongue or throat swelling, vomiting, diarrhea, abdominal pain, shortness of breath, new rashes or blistering lesions on your skin, fevers, inability to tolerate/keep down fluids or your medications, inability to follow up with outpatient providers as instructed and should you experience these symptoms or should you have any further concerns for your wellbeing please return to the ED or call 911 immediately. Please avoid any further use of oral nicotine replacement pouches or other oral nicotine replacement products until your symptoms resolve. Please avoid use of nicotine replacement pouches that triggered today's reaction. Please drink ple nty of clear fluids, maintain a soft diet until symptoms resolve. Your pain can be treated with ibuprofen and acetaminophen. You can take up to 400-600 mg of ibuprofen (Advil, Motrin) 3 times daily (every 8 hours) but can also use lower doses if this relieves your pain. Some people prefer naproxen (Aleve, Naprosyn) which can be taken in doses of 500 mg up to twice a day. Do not take both of these medicines together, and do not combine either with ketorolac (Toradol), meloxicam (Mobic), or indomethacin (Tivorbex). Some people can develop stomach discomfort with higher doses of either ibuprofen or naproxen, if this develops decrease your dose or stop taking it. If you need to take this dose daily for more than a week, please schedule an appointment for re-evaluation with your PCP. Please take these medications with food. You can take up to 650 mg of acetaminophen (Tylenol) every 6 hours. Be careful as this is included in some medicines like Tylenol-3's, Nyquil, [place], Percocet, Vicodin, STANBACK, Goody's Powders, and Excedrin. PLEASE call your primary care physician as soon as possible to arrange / discuss plan for followup appointment. Appointment in the next 1-3 days is strongly encouraged if possible. PLEASE let us know here before you leave if there is anything further we can do to be of any assistance. Take care and feel Better! Prescriptions: predniSONE [Deltasone] 40 mg PO DAILY 5 Days #14 tab Is patient prescribed a controlled substance at d/c from ED?: No Referrals: Bethel Singh MD [Primary Care Provider] - 1-2 days
[2024-06-13] MEDS: KETOROLAC 15 MG/ML 1 ML VIAL IVP STA (23:33)
[2024-06-13] MEDS: ONDANSETRON 4 MG/2 ML VIAL IVP STA (23:33)
[2024-06-13] MEDS: LIDOCAINE VISCOUS 2% 15 ML CUP MUCOUS MEM ONE (23:33)
[2024-06-13] MEDS: IPRATROPIUM-ALBUTEROL 3 ML NEB INHALATION STA (23:34)
[2024-06-14 00:53] LABS: Basophils # (A) 0.1 k/uL (0-0.2); Basophils % (A) 0 %; Eosinophils # (A) 0.5 k/uL (0-0.7); Eosinophils % (A) 4 %; HCT 46.6 % (39.0-53.0); Lymphocytes # (A) 2.5 k/uL (1.0-4.8); Lymphocytes % (A) 18 %; MCH 28.3 pg (25.0-35.0); MCHC 34.4 g/dL (31.0-37.0); MCV 82.3 fL (80.0-100.0); Mean Platelet Volume 9.7; Monocytes # (A) 0.9 k/uL (0-1.0); Monocytes % (A) 7 %; Neutrophils # (A) 9.7 k/uL (1.3-7.7); Neutrophils % (A) 70 %; Platelet Count 281 k/uL (150-450); RBC 5.66 m/uL (4.30-5.90); RDW 14.7 % (11.5-15.5); WBC 13.8 k/uL (3.8-10.6)
[2024-06-14] MEDS: MAG HYDROX/AL HYDROX/SIMETH 30 ML, HYOSCYAMINE ELIXIR 10 ML PO STA (00:59)
--- NOTE | 2024-06-14 00:59 | XR ---
EXAM: XR Chest, 2 Views CLINICAL HISTORY: ITS.REASON XR Reason: atypical allergic rxn, consider SJS or TEN, wheezi TECHNIQUE: Frontal and lateral views of the chest. COMPARISON: None FINDINGS: Hardware: None. Lungs/pleura: Normal. No focal consolidation. No pleural effusion or pneumothorax. Heart/mediastinum: Normal. No cardiomegaly. Soft tissues: Unremarkable. Bones: No acute fracture. Upper abdomen: Normal. IMPRESSION: No acute disease identified.
[2024-06-14 01:09] LABS: ALT 44 U/L (4-49); AST 66 U/L (17-59); African American GFR (CKD) >90 (>60 ml/min/1.73 sqM); Albumin 4.6 g/dL (3.5-5.0); Alkaline Phosphatase 77 U/L (38-126); Anion Gap 9 mmol/L; Blood Urea Nitrogen 16 mg/dL (9-20); Calcium 9.2 mg/dL (8.4-10.2); Carbon Dioxide 24 mmol/L (22-30); Chloride 99 mmol/L (98-107); Glucose 114 mg/dL (74-99); Non-African American GFR(CKD) >90 (>60 ml/min/1.73 sqM); Potassium 3.7 mmol/L (3.5-5.1); Sodium 132 mmol/L (137-145); Total Bilirubin 1.7 mg/dL (0.2-1.3); Total Protein 7.7 g/dL (6.3-8.2)
[2024-06-14] MEDS: MORPHINE SULFATE 4 MG/ML SYRINGE IVP STA (01:38)
[2024-06-14] MEDS: ACET/COD 300 MG/30 MG STARTER PACK 6 TAB BTL PO STA (01:48)
[2024-06-14 01:53] VITALS: BP 127/68; PULSE 77; RESP 20; TEMP 97.9
[2024-06-14 09:48] LABS: Erythrocyte Sedimentation Rate 35 mm/Hr (0-15)
== END 2024-06-14 01:48 | disposition home or self-care (01) ==
LOC: EC 22:47
DX: T78.40XA Allergy, unspecified, initial encounter (principal); F17.200 Nicotine dependence, unspecified, uncomplicated
CPT/HCPCS: 36415; 94640; 80053; 85652; 85025; 86140; 71046; 99284; 96374; 96375 ×4; 96361 ×2; J1200; J2405; J3490; J1885; J2919

== ENCOUNTER 2024-10-24 15:44 | Emergency (ER) | payer OTHER ==
[2024-10-24 15:55] VITALS: TEMP 98
--- NOTE | 2024-10-24 16:12 | ED ---
Alcohol HPI - General Chief Complaint: Alcohol Stated Complaint: ETOH Time Seen by Provider: 10/24/24 15:44 Source: patient, police, RN notes reviewed Mode of arrival: ambulatory Limitations: no limitations - History of Present Illness Initial Comments: 39-year-old male presents emergency department with police for retirement clearance, withdrawal. Patient has no complaints himself. Patient does have a longstanding history of alcohol and drug abuse. Patient denies current patient did have episode of emesis but states he has no abdominal pain. - Related Data Home Medications Medication Instructions Recorded Confirmed Albuterol Inhaler [Ventolin Hfa 1 - 2 puff INHALATION RT-Q6H PRN 01/02/23 04/19/23 Inhaler] Previous Rx's Medication Instructions Recorded Gabapentin 600 mg PO TID 3 Days #9 tab 01/07/23 Paliperidone [Invega] 6 mg PO DAILY 30 Days #30 tab 01/07/23 QUEtiapine [SEROquel] 100 mg PO HS 30 Days #30 tab 01/07/23 predniSONE [Deltasone] 40 mg PO DAILY 5 Days #14 tab 06/14/24 Allergies Allergy/AdvReac Type Severity Reaction Status Date / Time No Known Allergies Allergy Verified 06/13/24 23:05 Review of Systems ROS Statement: Those systems with pertinent positive or pertinent negative responses have been documented in the HPI. ROS Other: All systems not noted in ROS Statement are negative. Past Medical History Past Medical History: No Reported History, Hypertension Additional Past Medical History / Comment(s): recovering heroin addict, Psychosis History of Any Multi-Drug Resistant Organisms: None Reported Past Surgical History: No Surgical Hx Reported, Tonsillectomy Past Anesthesia/Blood Transfusion Reactions: No Reported Reaction Past Psychological History: Anxiety, Bipolar, Depression Smoking Status: Current every day smoker Past Alcohol Use History: Daily, Heavy, Occasional Past Drug Use History: Heroin, Marijuana, Methamphetamine - Past Family History Mother Family Medical History: Diabetes Mellitus Father Family Medical History: Coronary Artery Disease (CAD) family Family Medical History: Unable to Obtain General Exam Limitations: no limitations General appearance: alert, in no apparent distress Head exam: Present: atraumatic, normocephalic, normal inspection Eye exam: Present: normal appearance, PERRL, EOMI. Absent: scleral icterus, conjunctival injection, periorbital swelling ENT exam: Present: normal exam, normal oropharynx, mucous membranes moist Neck exam: Present: normal inspection, full ROM. Absent: tenderness, meningismus, lymphadenopathy Respiratory exam: Present: normal lung sounds bilaterally. Absent: respiratory distress, wheezes, rales, rhonchi, stridor Cardiovascular Exam: Present: regular rate, normal rhythm, normal heart sounds. Absent: systolic murmur, diastolic murmur, rubs, gallop, clicks Neurological exam: Present: alert, oriented X3 Course Vital Signs 10/24/24 15:49 Temperature 98 F Pulse Rate 90 Respiratory 18 Rate Blood Pressure 148/78 O2 Sat by Pulse 100 Oximetry Medical Decision Making - Medical Decision Making Was pt. sent in by a medical professional or institution (SOFIA Ruff, MACHINE LOAD CLERK, urgent care, hospital, or alf...) When possible be specific @ -No Did you speak to anyone other than the patient for history (EMS, parent, family, police, friend...)? What history was obtained from this source @ -No Did you review nursing and triage notes (agree or disagree)? Why? @ -I reviewed and agree with nursing and triage notes Were old charts reviewed (outside hosp., previous admission, EMS record, old EKG, old radiological studies, urgent care reports/EKG's, alf records)? Report findings @ -No old charts were reviewed Differential Diagnosis (chest pain, altered mental status, abdominal pain women, abdominal pain men, vaginal bleeding, weakness, fever, dyspnea, syncope, headache, dizziness, GI bleed, back pain, seizure, CVA, palpatations, mental health, musculoskeletal)? @ -Usp clearance EKG interpreted by me (3pts min.). @ -None X-rays interpreted by me (1pt min.). @ -None done CT interpreted by me (1pt min.). @ -None done U/S interpreted by me (1pt. min.). @ -None done What testing was considered but not performed or refused? (CT, X-rays, U/S, labs)? Why? @ -None What meds were considered but not given or refused? Why? @ -None Did you discuss the management of the patient with other professionals (professionals i.e. SOFIA Ruff, MACHINE LOAD CLERK, lab, RT, psych nurse, community mental health social worker, medical radiation tech, teacher, commissioned fire officer, case liner)? Give summary @ -No Was smoking cessation discussed for >3mins.? @ -No Was critical care preformed (if so, how long)? @ -No Were there social determinants of health that impacted care today? How? (Homel essness, low income, unemployed, alcoholism, drug addiction, transportation, low edu. Level, literacy, decrease access to med. care, retirement, rehab)? @ -No Was there de-escalation of care discussed even if they declined (Discuss DNR or withdrawal of care, Hospice)? DNR status @ -No What co-morbidities impacted this encounter? (DM, HTN, Smoking, COPD, CAD, Cancer, CVA, ARF, Chemo, Hep., AIDS, mental health diagnosis, sleep apnea, morbid obesity)? @ -None Was patient admitted / discharged? Hospital course, mention meds given and route, prescriptions, significant lab abnormalities, going to OR and other pertinent info. @ -[Discharged to police custody after retirement clearance. Undiagnosed new problem with uncertain prognosis? @ -No Drug Therapy requiring intensive monitoring for toxicity (Heparin, Nitro, Insulin, Cardizem)? @ -No Were any procedures done? @ -No Diagnosis/symptom? @ -Medical clearance for incarceration Acute, or Chronic, or Acute on Chronic? @ -Acute Uncomplicated (without systemic symptoms) or Complicated (systemic symptoms)? @Uncomplicated Side effects of treatment? @ -No Exacerbation, Progression, or Severe Exacerbation? @ -No Poses a threat to life or bodily function? How? (Chest pain, [place], [place], pneumonia, PE, COPD, DKA, ARF, appy, cholecystitis, CVA, Diverticulitis, Homicidal, Suicidal, threat to staff... and all critical care pts) @ -No Disposition Clinical Impression: Medical clearance for incarceration Disposition: HOME SELF-CARE Condition: Stable Additional Instructions: Please return to the Emergency Department if symptoms worsen or any other concerns. Is patient prescribed a controlled substance at d/c from ED?: No Referrals: None,Stated [Primary Care Provider] - 1-2 days Time of Disposition: 16:12
[2024-10-24 17:37] VITALS: BP 150/92; PULSE 110; RESP 22
== END 2024-10-24 17:39 | disposition home or self-care (01) ==
LOC: EC 15:44
DX: F10.239 Alcohol dependence with withdrawal, unspecified (principal); Z02.89 Encounter for other administrative examinations; F17.200 Nicotine dependence, unspecified, uncomplicated
CPT/HCPCS: 99284